=== PATIENT | female | born 1960 | race Caucasian/White ===

== ENCOUNTER → 2017-12-14 18:21 | Outpatient (CLI) | payer OTHER, SELFPAY ==
[2019-06-06 10:24] VITALS: BMI 31.1
== END ==
PROVIDERS: Family Provider Internal Medicine; PCP Internal Medicine; Visit Provider Ophthalmology
DX: H04.332 Acute lacrimal canaliculitis of left lacrimal passage (principal)
CPT/HCPCS: 87070; 87205

== ENCOUNTER → 2017-12-28 13:00 | Outpatient (CLI) | payer OTHER, SELFPAY ==
[2017-12-28 13:32] LABS: CPK Total, Creatine Kinase 74 U/L (26-192)
== END ==
PROVIDERS: Family Provider Internal Medicine; PCP Internal Medicine; Visit Provider Internal Medicine
DX: R07.9 Chest pain, unspecified (principal)
CPT/HCPCS: 82550; 84484

== ENCOUNTER → 2018-01-28 13:27 | Outpatient (CLI) | payer MEDICARE, OTHER, SELFPAY | PROVIDERS: Family Provider Internal Medicine; PCP Internal Medicine; Visit Provider Internal Medicine Critical Care Medicine | DX: G47.33 Obstructive sleep apnea (adult) (pediatric) (principal) | CPT/HCPCS: 98960; G0463 ==

== ENCOUNTER → 2018-02-19 14:51 | Outpatient (CLI) | payer MEDICARE, SELFPAY ==
--- NOTE | 2018-02-19 14:55 | BI_ITS ---
MAMMOGRAPHY - BILATERAL SCREENING REASON FOR EXAM: Female, 57 years old. Routine annual screening examination. PERTINENT HISTORY: Prior bilateral breast reduction surgery. TECHNIQUE: Digital bilateral breast gretchen (3D mammographic acquisition) in the CC and MLO projections. 2-D mediolateral oblique (MLO) and craniocaudad (CC) views of both breasts were obtained. CAD: Full Field Digital Mammography with Computer Added Detection was performed. COMPARISON: Comparison is made with prior study dated August 26, 2013 and March 18, 2012. FINDINGS: Breast Composition: The breasts are almost entirely fatty. There are no dominant masses or suspicious calcifications. Stable linear calcification seen along the inferior deep medial portion of both breasts in keeping with prior bilateral breast reduction surgery. No other significant abnormalities are identified. There has been no significant change since the prior study. BI/SCREENING MAMM (CAD), BILAT IMPRESSION: Stable bilateral screening mammogram. Yearly follow-up mammogram recommended. (A) ASSESSMENT CATEGORY: BIRADS Category 2: Benign. A letter regarding these results will be sent to the patient by the facility within 30 days. Approximately 10% of breast cancers are not detected by mammography. A normal mammogram should not delay biopsy of a clinically suspicious abnormality. [id number] Electronically Signed: Moreno Camarilol MD at 9:46 EDT Tel [phone], Service support ,
--- NOTE | 2018-02-19 14:59 | BD_ITS ---
STUDY: DUAL ENERGY X-RAY ABSORPTIOMETRY / DXA REASON FOR EXAM: Female, 57 years old. The patient is postmenopausal. Loss of height of 3.5 inches. TECHNIQUE: Bone Mineral Density (BMD) measurements of lumbar spine and left hip were obtained. COMPARISON: Comparison is made with prior study dated September 07, 2009. FINDINGS: Lumbar Spine (L1-L4): g/cm2 (1.421) / T-score (1.8) / Z-score (3.0) Findings are suggestive of normal bone density with a low fracture risk. Left Femur Total: g/cm2 (0.638) / T-score (-2.9) / Z-score (-2.0) Left Femoral Neck: g/cm2 (0.778) / T-score (-1.9) / Z-score (-0.7) The T-Scores on the most recent prior examination were: Lumbar Spine (L1-L4): There has been worsening of bone density since the previous examination. Left Femur Total: which represents a worsening of 0.3%. BD/Dexa Bone Density Study IMPRESSION: The patient is considered osteoporotic as outlined below according to World Jose Organization (WHO) criteria with a high fracture risk. There has been worsening of bone density since the previous examination. Reference Information: The T-score is the number of standard deviations above or below the standard which is normal for young adults at their peak bone mineral density. The World Health Organization (WHO) interprets the T-scores as follows: Above -1 Normal bone density Between -1 and -2.5 Osteopenia Equal to / or below -2.5 Osteoporosis As a practical clinical guideline, osteopenia may be graded as follows: Mild -1 through -1.5 Moderate -1.6 through -2.0 Severe -2.1 through -2.4 The Z-score is the number of standard deviations above or below age-matched controls. A Z-score of less than -1.5 would be considered abnormal. References: 1. NIH Osteoporosis and Related Bone Diseases http://www.osteo.org 2. International Society for Clinical Densitometry http://www.iscd.org 3. National Osteoporosis Foundation http://www.nof.org Electronically Signed: Moreno Camarillo MD at 15:37 EDT Tel [phone], Service support ,
== END ==
PROVIDERS: Family Provider Internal Medicine; PCP Internal Medicine; Visit Provider Internal Medicine
DX: Z12.31 Encounter for screening mammogram for malignant neoplasm of breast (principal); Z78.0 Asymptomatic menopausal state
CPT/HCPCS: 77063; 77067; 77080

== ENCOUNTER 2018-03-04 11:28 | Day surgery (SDC) | payer MEDICARE, SELFPAY ==
[2018-03-04] VITALS (7 sets, daily range): BP systolic 113–117; BP diastolic 76–87; PULSE 74–82; RESP 16–18; TEMP 36.2–36.8; O2SAT 96–99; BMI 33.0
[2018-03-04] MEDS: Cefazolin 2 GM in 0.9% Normal Saline 100 ML IV (12:55)
[2018-03-04] MEDS: Bupivacaine Mpf 0.5% 30 ML VIAL (13:00)
--- NOTE | 2018-03-04 13:00 | AMP_PTH ---
PATIENT: ALBERTINA WORKMAN [place] [facility] [place][id number] AGE/SX: 57/F ROOM: RE03/04/[address]: Dr. Zachery Mohan DPM : 1960 BED: DIS: 03/04/2018 SPEC #: [id number] RECD: 03/05/18 08:10 STATUS: PRAMOD HERNANDEZ #: [id number] MOR: 03/04/18 13:[address]: Zachery Mohan DEPT: SURGICAL PATHOLOGY RECD BY: Dhruv Hunter ENTERED: 03/05/18 09:30 SP TYPE: Amputation OTHR DR: Dr. Kelli Senior, DO Tissues: Toe, NOS Procedures: Decalcification bone/plaque Surgery Specimen Level IV HEADER OPERATION: Amputation toe, partial second PRE-OP DIAGNOSIS: Hammertoe right foot TISSUE SUBMITTED: Right second toe MICROSCOPIC DIAGNOSIS Right second toe, amputation: Bone with reparative and reactive change consistent with hammertoe deformity. AM:vern 03/08/18 MICROSCOPIC DESCRIPTION Slides are reviewed. GROSS DESCRIPTION Received in fixative is one container labeled with the patient's name and designated right second toe. The specimen consists of a distal digit with attached nail, skin, soft tissue and bone measuring 2 cm in length and with an average diameter of 1.6 cm. The skin, soft tissue and bone at margin of resection is grossly unremarkable. The plantar surface displays an ulcer with surrounding induration measuring 2 mm in greatest dimension. A longitudinal section of this fragment is submitted in cassette 1 after decalcification. Also present free in the container is an irregular fragment of blackmon bone measuring 1 x 1 x 0.7 cm. This fragment of bone is bisected and submitted in its entirety in cassette 2 after decalcification. / AM:vern 03/05/18 TC:5 CPT: 94268, 75988
--- NOTE | 2018-03-04 13:35 | OP.PCM_ITS ---
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 She had previous surgery to try to straighten the toe many years ago by a different physician, however the toe is deformed and very painful. She develops a painful callus to the toe. She has trouble with shoegear. She continues to have symptoms despite extensive nonsurgical management, she was asking to have a partial 2nd toe amputation. This was discussed with her, reviewed the procedure, as well as the possible benefits, risks, goals and expectations. She expressed understanding and agreement, and she elected to proceed forward with partial amputation of the right 2nd toe. The consent forms were reviewed with her and she freely signed them. All of her questions were answered. No guarantees were given or implied. Operative procedure: The patient was brought back into the operating room and was placed on the operative room table in the supine position. She was carefully secured to the operating room table in the supine position. The patient received 2g of IV Ancef for antibiotic prophylaxis. The patient received MAC anesthesia per the anesthesia team. A right 2nd ray block was completed to the right foot after the overlying skin was cleansed with 70% Isopropyl alcohol. A well padded pneumatic tourniquet was applied around the right ankle. The right foot was scrubbed, prepped, draped in the usual aseptic fashion. A timeout was performed and the patient was properly identified and the surgical plan was confirmed. A right foot was elevated for 3 minutes and the right ankle pneumatic tourniquet was inflated to 250mmHg. Further attention was directed to the right 2nd toe, which was again noted to be significantly deformed. An incision was made around the base of the 2nd toe using a 15 blade, this was made down to bone creating skin flaps for closure. The 2nd toe was resected, leaving the base of the proximal phalanx. The bone and soft tissues were otherwise healthy and viable, no evidence of infection, necrosis, or any other abnormality at this time. The amputated portion of the toe was sent to pathology for further evaluation. The site was flushed out with copious amounts of normal saline solution. The skin flaps were reapproximated using 3-0 Prolene. A dressing was applied which consisted of betadine soaked adaptic, 4x4 gauze, kerlix and an eli bandage. The pneumatic tourniquet was deflated at 18 minutes, there was immediate return of flow to the foot and to all remaining toes, CFT < 2 seconds to all toes, and normal temperature was present. The patient tolerated the above procedure and anesthesia well with no complications. Post operative orders were placed. Post operative instructions were dispensed verbally and written. No weightbearing to the right forefoot, keep right foot elevated, and keep the dressing clean, dry and intact. Vicodin 5mg/300mg 1-2 tabs PO q 6 hours PRN pain was prescribed. A surgical shoe was fitted and dispensed. She is to follow up with me within 1 week, sooner if needed. Grafts/Implants Used: None - Complications None
--- NOTE | 2018-03-04 13:49 | PCM.DC.POD ---
Discharge Diet: Light diet - advance as tolerated Discharge Activity: May Not Drive Weight Bearing Status: Partial weight bearing - No weightbearing on toes/ball of right foot. Okay to weightbear on right heel with assistance with a walker or cane Keep extremity elevated above heart level: Right Leg - Keep right foot elevated for at least 50 minutes of every hour using pillows Call your doctor if your incision/area has: Continuous Slow Oozing, Sudden Increased Bleeding, Foul Smelling Discharge Call your doctor if you observe: Fever of 101 or Higher, Coldness, Increased Pain, Shortness of breath, Chest pain, Increased palpitations (irregular heartbeat), Calf discomfort, Uncontrolled pain Cleanse incision/area with: Do not get Incision Wet, Keep Dressing Clean & Dry Allergies/Adverse Reactions: Allergies adhesive tape Allergy (Severe, Uncoded 02/25/18 12:59) Unknown seasonal Allergy (Severe, Uncoded 02/25/18 12:59) Unknown Medications to take at Discharge biotin 5,000 mcg disintegrating tablet 10,000 mcg PO QDAY 12/19/17 calcitriol 0.25 mcg capsule 0.25 mcg PO QDAY 12/19/17 calcium carbonate 500 mg calcium (1,250 mg) tablet 500 mg PO BID tab 12/19/17 ergocalciferol (vitamin D2) 50,000 unit capsule 50,000 unit PO QWEEK 12/19/17 fludrocortisone 0.1 mg tablet 0.05 mg PO QODAY tab 12/19/17 fluoxetine 20 mg capsule 20 mg PO QDAY 12/19/17 levothyroxine 88 mcg tablet 88 mcg PO DAILY 12/19/17 mecobalamin (vitamin B12) 1,000 mcg disintegrating tablet,sublingual 1,000 mcg SUBLINGUAL QWEEK tab 12/19/17 omeprazole 20 mg capsule,delayed release 20 mg PO ONCE 12/19/17 pediatric multivitamin no.76 chewable tablet 1 tab PO QDAY 12/19/17 polysaccharide iron complex 150 mg iron capsule 325 mg PO DAILY cap 12/19/17 prednisone 2 mg tablet,delayed release 4 mg PO QHS 12/19/17 triamterene 37.5 mg-hydrochlorothiazide 25 mg capsule 1 cap PO QAM 12/19/17 Potassium Chloride [Klor-Con] 40 meq PO DAILY 02/25/18 Raloxifene HCl [Evista] 60 mg PO DAILY 02/25/18 Hydrocodone/Acetaminophen [Vicodin 5-300 mg Tablet] 1 - 2 tab PO Q6H PRN PRN 3 Days #30 tab 03/04/18 The following prescriptions were given: Hydrocodone/Acetaminophen [Vicodin 5-300 mg Tablet] 1 - 2 tab PO Q6H PRN PRN 3 Days #30 tab PRN Reason: Pain Primary Care Physician: Kelli Senior DO [Primary Care Provider] - Please Follow Up With: Zachery Mohan DPM When: within 1 week, sooner if needed
--- NOTE | 2018-03-04 14:05 | RAD_ITS ---
STUDY: X-RAY - RIGHT FOOT CLINICAL: Female, 57 years old. Postoperative right foot second digit partial amputation. TECHNIQUE: 3 view(s) of the foot. COMPARISON: None. FINDINGS: Has been surgical amputation of the mid and distal aspects of the second toe. There is mild multifocal osteoarthritis. There is diffuse demineralization. The soft tissue structures are unremarkable. RAD/Foot min 3 Views IMPRESSION: No evidence of acute osseous abnormality. Diffuse demineralization, advise correlation with DEXA. Mild multifocal osteoarthritis. Surgical amputation of mid and distal aspects of the second toe. No evidence on plain film exam of osteomyelitis. Electronically Signed: Ivan Ryder MD at 15:13 EDT , Service support ,
== END 2018-03-04 14:46 | disposition home or self-care (01) ==
LOC: SDC 11:32 → AC 11:42
PROVIDERS: Family Provider Internal Medicine; PCP Internal Medicine; Visit Provider Podiatrist
PROC: (CPT 28810; principal; 2018-03-04 12:45)
DX: M20.41 Other hammer toe(s) (acquired), right foot (principal); M20.5X1 Other deformities of toe(s) (acquired), right foot; I10 Essential (primary) hypertension; E78.00 Pure hypercholesterolemia, unspecified; G47.30 Sleep apnea, unspecified; E66.9 Obesity, unspecified; E03.9 Hypothyroidism, unspecified; Z68.33 Body mass index [BMI] 33.0-33.9, adult
CPT/HCPCS: 28810; 73630; 88305; 88311; J7120

== ENCOUNTER → 2019-02-20 10:46 | Outpatient (CLI) | payer MEDICARE, SELFPAY ==
[2018-12-25 08:49] VITALS: BMI 32.7
--- NOTE | 2019-02-20 10:47 | BI_ITS ---
MAMMOGRAPHY - BILATERAL SCREENING REASON FOR EXAM: Female, 58 years old. Routine annual screening examination. PERTINENT HISTORY: Non-contributory. Remote right stereotactic breast biopsy. Remote bilateral breast reduction surgery. TECHNIQUE: Digital bilateral breast gretchen (3D mammographic acquisition) in the CC and MLO projections. 2-D mediolateral oblique (MLO) and craniocaudad (CC) views of both breasts were obtained. CAD: Full Field Digital Mammography with Computer Added Detection was performed. COMPARISON: Comparison is made with prior study dated February 19, 2018 and August 26, 2013. FINDINGS: Breast Composition: The breasts are almost entirely fatty. There are no dominant masses or suspicious calcifications. Stable focal linear calcification seen along the inferior deep medial portions of both breasts suggestive of a post operative changes. No other significant abnormalities are identified. There has been no significant change since the prior study. BI/SCREENING MAMM (CAD), BILAT IMPRESSION: Stable bilateral screening mammogram. Yearly follow-up mammogram recommended. (A) ASSESSMENT CATEGORY: BIRADS Category 2: Benign. A letter regarding these results will be sent to the patient by the facility within 30 days. Approximately 10% of breast cancers are not detected by mammography. A normal mammogram should not delay biopsy of a clinically suspicious abnormality. [id number] Electronically Signed: Moreno Camarillo, at 12:29 EDT , Service support ,
== END ==
PROVIDERS: Family Provider Internal Medicine; PCP Internal Medicine; Referring Provider Internal Medicine; Visit Provider Internal Medicine
DX: Z12.31 Encounter for screening mammogram for malignant neoplasm of breast (principal)
CPT/HCPCS: 77063; 77067

== ENCOUNTER → 2019-02-27 07:36 | Outpatient (CLI) | payer MEDICARE, SELFPAY ==
[2018-12-25 08:49] VITALS: BMI 32.7
[2019-02-27 10:14] LABS: Absolute Lymphocyte Count 1.76 X10^3/ul (0.83-4.51); Absolute Neutrophil Count 2.5 X10^3/uL (2.0-7.7); Basophil# 0.03 X10^3/uL; Basophil% 0.6 % (0-1); Eosinophil# 0.14 X10^3/uL; Hematocrit 42.8 % (37-47); Hemoglobin 15.1 g/dl (12.0-15.0); Lymphocyte # 1.76 X10^3/ul (4.0); Lymphocyte % 37.3 % (19-41); Mean Corp Hgb Conc 35.3 g/gl (32-36); Mean Corpuscular Volume 93.4 fL (81-99); Mean Platelet Vol. 9.6 fl (6.2-12.0); Monocyte# 0.32 X10^3/uL; Monocyte% 6.8 % (0-10); Neutrophil # 2.47 X10^3/uL (2.7-7.7); Neutrophil % 52.3 % (47-70); Platelet Count 180 K/mm3 (150-450); RBC Distribution Width CV 12.4 % (11.6-14.6); RBC Distribution Width SD 41.9 fl (35.1-43.9); Red Blood Count 4.58 M/mm3 (4.2-5.4); White Blood Count 4.7 K/mm3 (4.4-11.0)
[2019-02-27 10:19] LABS: POSITIVE COUNT NO; POSITIVE DIFFERENTIAL NO; POSITIVE MORPHOLOGY NO
[2019-02-27 10:35] LABS: PTHIN 36.9 pg/mL (18.4-80.1)
[2019-02-27 10:54] LABS: Vitamin B12 1001 pg/mL (211-911); Vitamin D,25 Hydroxy 40.3 ng/mL (29.95-100.01)
[2019-02-27 11:16] LABS: ALB/GLOB Ratio 1.2 RATIO (0.9-2.4); AST(SGOT) 26 U/L (15-37); Alanine Aminotransfer ALT/SGPT 35 U/L (13-56); Albumin, Serum 3.5 g/dL (3.2-5.0); Alkaline Phosphatase 72 U/L (45-117); Anion Gap 6 (5-15); BUN 11 mg/dL (7-18); BUN/Creat Ratio 18.8 RATIO (10-20); Calcium,Total 8.8 mg/dL (8.5-10.1); Chloride 106 mmol/L (98-107); Creatinine, Serum 0.59 mg/dL (0.55-1.02); EST Glomerular Filtration Rate 111 mL/min (>60); Est Glom Filt Rate - Afr Amer 135 mL/min (>60); Globulin 2.9 g/dL (2.2-4.2); Glucose 88 mg/dL (74-106); Magnesium 2.1 mg/dL (1.6-2.6); Phosphorus 3.7 mg/dL (2.5-4.9); Potassium 3.7 mmol/L (3.5-5.1); Prolactin 8.7 ng/mL; Protein, Total 6.4 g/dL (6.4-8.2); Sodium Level 142 mmol/L (136-145)
[2019-02-27 11:21] LABS: Hemoglobin A1c 5.1 % (4.2-6.3)
[2019-02-28 16:07] LABS: Folate, Hemolysate Test 498.7 ng/mL (Not Estab.); Folate, RBC (Hct) Test 42.4 % (34.0-46.6); Folates, RBC Test 1176 ng/mL (>498)
[2019-03-03 12:03] LABS: Thyroid Peroxidase AB 7 IU/mL (0-34)
== END ==
PROVIDERS: Family Provider Internal Medicine; PCP Internal Medicine; Referring Provider Internal Medicine Endocrinology, Diabetes & Metabolism; Visit Provider Internal Medicine Endocrinology, Diabetes & Metabolism
DX: E55.9 Vitamin D deficiency, unspecified (principal); Z13.1 Encounter for screening for diabetes mellitus; D35.2 Benign neoplasm of pituitary gland; E03.9 Hypothyroidism, unspecified; M81.8 Other osteoporosis without current pathological fracture; Z98.84 Bariatric surgery status; Z86.39 Personal history of other endocrine, nutritional and metabolic disease
CPT/HCPCS: 36415; 80053; 82306; 82330; 82607; 82747; 83036; 83735; 83970; 84100; 84146; 85014; 85025; 86376

== ENCOUNTER → 2019-02-28 11:32 | Outpatient (CLI) | payer MEDICARE, SELFPAY ==
[2018-12-25 08:49] VITALS: BMI 32.7
== END ==
PROVIDERS: Family Provider Internal Medicine; PCP Internal Medicine; Referring Provider Internal Medicine Endocrinology, Diabetes & Metabolism; Visit Provider Internal Medicine Endocrinology, Diabetes & Metabolism
DX: E55.9 Vitamin D deficiency, unspecified (principal); Z13.1 Encounter for screening for diabetes mellitus; Z86.39 Personal history of other endocrine, nutritional and metabolic disease; D35.2 Benign neoplasm of pituitary gland; M81.8 Other osteoporosis without current pathological fracture; Z98.84 Bariatric surgery status

== ENCOUNTER → 2019-03-12 14:02 | Outpatient (CLI) | payer MEDICARE, SELFPAY ==
[2018-12-25 08:49] VITALS: BMI 32.7
--- NOTE | 2019-03-12 14:07 | RAD_ITS ---
STUDY: X-RAY CHEST REASON FOR EXAM: Female, 58 years old. Chest pain TECHNIQUE: Frontal and lateral views of the chest COMPARISON: None. FINDINGS: The lungs are clear. There are no pleural effusions. There is no pneumothorax. The heart is normal in size. There are surgical clips noted in the upper abdomen. The visualized osseous structures are within normal limits. RAD/Chest PA and Lateral IMPRESSION: No acute thoracic pathology. Electronically Signed: Jeremiah Hoffman, at 14:56 EDT Tel , Service support ,
--- NOTE | 2019-03-12 14:09 | RAD_ITS ---
STUDY: X-RAY - UNILATERAL RIBS ( RIGHT ) REASON FOR EXAM: Female, 58 years old. Right-sided pain. Fall. TECHNIQUE: 2 view(s) of the ribs. COMPARISON: None. FINDINGS: There are no displaced rib fractures identified. The visualized lungs are clear. There is no pneumothorax. RAD/Ribs Unil 2V No CXR IMPRESSION: No displaced rib fracture identified. Electronically Signed: Jeremiah Hoffman, at 14:58 EDT Tel , Service support ,
== END ==
PROVIDERS: Family Provider Internal Medicine; PCP Internal Medicine; Referring Provider Nurse Practitioner; Visit Provider Nurse Practitioner
DX: R07.81 Pleurodynia (principal); W19.XXXA Unspecified fall, initial encounter
CPT/HCPCS: 71046; 71100

== ENCOUNTER → 2019-06-03 17:26 | Outpatient (CLI) | payer MEDICARE, SELFPAY ==
[2018-12-25 08:49] VITALS: BMI 32.7
== END ==
PROVIDERS: Family Provider Internal Medicine; PCP Internal Medicine; Visit Provider Ophthalmology
DX: H04.332 Acute lacrimal canaliculitis of left lacrimal passage (principal)

== ENCOUNTER → 2019-06-06 10:20 | Outpatient (CLI) | payer MEDICARE, SELFPAY ==
[2018-12-25 08:49] VITALS: BMI 32.7
[2019-06-06 10:24] VITALS: BP 109/71; PULSE 76; RESP 18; TEMP 36.4; O2SAT 98; BMI 31.1
[2019-06-06] MEDS: Zoledronic Acid 5 MG 100 ML 300 MG IV (10:47)
[2019-06-06 11:45] LABS: ALB/GLOB Ratio 1.1 RATIO (0.9-2.4); AST(SGOT) 37 U/L (15-37); Alanine Aminotransfer ALT/SGPT 46 U/L (13-56); Albumin, Serum 3.5 g/dL (3.2-5.0); Alkaline Phosphatase 88 U/L (45-117); Anion Gap 7 (5-15); BUN 13 mg/dL (7-18); BUN/Creat Ratio 21.4 RATIO (10-20); Chloride 103 mmol/L (98-107); Creatinine, Serum 0.61 mg/dL (0.55-1.02); EST Glomerular Filtration Rate 107 mL/min (>60); Est Glom Filt Rate - Afr Amer 129 mL/min (>60); Estimated Creatinine Clearance 81.13 ml/min; Globulin 3.1 g/dL (2.2-4.2); Glucose 89 mg/dL (74-106); Potassium 3.7 mmol/L (3.5-5.1); Protein, Total 6.6 g/dL (6.4-8.2); Sodium Level 141 mmol/L (136-145)
== END ==
PROVIDERS: Family Provider Internal Medicine; PCP Internal Medicine; Referring Provider Internal Medicine Endocrinology, Diabetes & Metabolism; Visit Provider Internal Medicine Endocrinology, Diabetes & Metabolism
DX: M81.0 Age-related osteoporosis without current pathological fracture (principal)
CPT/HCPCS: 96365; 36415; 80053; 87070; 87101; 87205; A4216; J3489

== ENCOUNTER → 2019-06-06 17:20 | Outpatient (CLI) | payer MEDICARE, SELFPAY ==
[2019-06-06 10:24] VITALS: BMI 31.1
== END ==
PROVIDERS: Family Provider Internal Medicine; PCP Internal Medicine; Referring Provider Ophthalmology; Visit Provider Ophthalmology
DX: H04.332 Acute lacrimal canaliculitis of left lacrimal passage (principal)
CPT/HCPCS: 87070; 87101; 87205

== ENCOUNTER → 2020-01-19 12:46 | Outpatient (CLI) | payer MEDICARE, SELFPAY ==
[2019-06-06 10:24] VITALS: BMI 31.1
== END ==
PROVIDERS: PCP Internal Medicine; Referring Provider Ophthalmology; Visit Provider Ophthalmology
DX: H04.332 Acute lacrimal canaliculitis of left lacrimal passage (principal)
CPT/HCPCS: 87070; 87075; 87076; 87205

== ENCOUNTER → 2020-02-03 15:00 | Outpatient (CLI) | payer MEDICARE, SELFPAY ==
[2019-06-06 10:24] VITALS: BMI 31.1
--- NOTE | 2020-02-03 15:08 | RAD_ITS ---
STUDY: X-RAY - LEFT SHOULDER REASON FOR EXAM: Female, 59 years old. FELL THIS AM, SHOULDER PAIN TECHNIQUE: 4 view(s) of the shoulder. COMPARISON: None. FINDINGS: There is mild degenerative arthrosis of the glenohumeral articulation. Normal acromioclavicular joint. Normal acromion. Normal humeral head and visualized proximal humerus. The soft tissue structures are unremarkable. Normal visualized pulmonary apex. RAD/Shoulder min 2 Views IMPRESSION: Degenerative changes of the right glenohumeral joint. Electronically Signed: Moreno Camarillo, at 15:40 EDT , Service support ,
== END ==
PROVIDERS: PCP Internal Medicine; Referring Provider Nurse Practitioner; Visit Provider Nurse Practitioner
DX: M25.512 Pain in left shoulder (principal)
CPT/HCPCS: 73030

== ENCOUNTER → 2020-02-25 10:44 | Outpatient (CLI) | payer MEDICARE, SELFPAY ==
[2019-06-06 10:24] VITALS: BMI 31.1
[2020-02-19 13:03] VITALS: BMI 31.1
--- NOTE | 2020-02-25 10:51 | BD_ITS ---
STUDY: DUAL ENERGY X-RAY ABSORPTIOMETRY / DXA REASON FOR EXAM: Female, 59 years old. 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 COMPARISON: Comparison is made with prior examination dated February 19, 2018. FINDINGS: Lumbar Spine (L1-L4): g/cm2 (1.394) / T-score (1.6) / Z-score (2.9) Findings are suggestive of normal bone density with a low fracture risk. Left Femur Total: g/cm2 (0.649) / T-score (-2.8) / Z-score (-1.8) Left Femoral Neck: g/cm2 (0.885) / T-score (minus 1.) / Z-score (0.2) The T-Scores on the most recent prior examination were: Lumbar Spine (L1-L4): There has been worsening of bone density since the previous examination. Left Femur Total: which represents an improvement of 13.8. BD/Dexa Bone Density Study IMPRESSION: The patient is considered osteoporotic as outlined below according to World [place] Organization (WHO) criteria with a high fracture risk. There has been improvement of bone density since the previous examination. Reference Information: The T-score is the number of standard deviations above or below the standard which is normal for young adults at their peak bone mineral density. The World Health Organization (WHO) interprets the T-scores as follows: Above -1 Normal bone density Between -1 and -2.5 Osteopenia Equal to / or below -2.5 Osteoporosis As a practical clinical guideline, osteopenia may be graded as follows: Mild -1 through -1.5 Moderate -1.6 through -2.0 Severe -2.1 through -2.4 The Z-score is the number of standard deviations above or below age-matched controls. A Z-score of less than -1.5 would be considered abnormal. References: 1. NIH Osteoporosis and Related Bone Diseases http://www.osteo.org 2. International Society for Clinical Densitometry http://www.iscd.org 3. National Osteoporosis Foundation http://www.nof.org Electronically Signed: Moreno Camarillo, at 11:33 EDT , Service support ,
--- NOTE | 2020-02-25 10:57 | BI_ITS ---
MAMMOGRAPHY - BILATERAL SCREENING REASON FOR EXAM: Female, 59 years old. Routine annual screening examination. PERTINENT HISTORY: Non-contributory. Remote right stereotactic breast biopsy and bilateral breast reduction surgery. TECHNIQUE: Digital bilateral breast eli (3D mammographic acquisition) in the CC and MLO projections. 2-D mediolateral oblique (MLO) and craniocaudad (CC) views of both breasts were obtained. CAD: Full Field Digital Mammography with Computer Added Detection was performed. COMPARISON: Comparison is made with prior examination dated February 20, 2019 and February 19, 2018. FINDINGS: Breast Composition: The breasts are almost entirely fatty. There are no dominant masses or suspicious calcifications. Stable bilateral focal linear calcification in the inferior deep portion of both breasts most likely secondary to prior surgery. No other significant abnormalities are identified. There has been no significant change since the prior study. BI/SCREEN MAMM (CAD) W/ELI BILAT IMPRESSION: Stable bilateral screening mammogram. Yearly follow-up mammogram recommended. (A) ASSESSMENT CATEGORY: BIRADS Category 2: Benign. A letter regarding these results will be sent to the patient by the facility within 30 days. Approximately 10% of breast cancers are not detected by mammography. A normal mammogram should not delay biopsy of a clinically suspicious abnormality. [id number] Electronically Signed: Moreno Camarillo, at 14:31 EDT , Service support ,
== END ==
PROVIDERS: PCP Internal Medicine; Referring Provider Internal Medicine; Visit Provider Internal Medicine
DX: Z12.31 Encounter for screening mammogram for malignant neoplasm of breast (principal); Z78.0 Asymptomatic menopausal state
CPT/HCPCS: 77063; 77067; 77080

== ENCOUNTER → 2020-04-13 07:17 | Outpatient (CLI) | payer MEDICARE, SELFPAY ==
[2020-03-05 09:18] VITALS: BMI 31.1
[2020-04-13 10:39] LABS: ALB/GLOB Ratio 1.1 RATIO (0.9-2.4); AST(SGOT) 52 U/L (15-37); Alanine Aminotransfer ALT/SGPT 70 U/L (13-56); Albumin, Serum 3.5 g/dL (3.2-5.0); Alkaline Phosphatase 73 U/L (45-117); Anion Gap 9 (5-15); BUN 12 mg/dL (7-18); BUN/Creat Ratio 20.5 RATIO (10-20); Calcium,Total 8.6 mg/dL (8.5-10.1); Chloride 104 mmol/L (98-107); Creatinine, Serum 0.58 mg/dL (0.55-1.02); EST Glomerular Filtration Rate 111 mL/min (>60); Est Glom Filt Rate - Afr Amer 134 mL/min (>60); Ferritin 73 ng/mL (8-252); Globulin 3.2 g/dL (2.2-4.2); Glucose 90 mg/dL (74-106); Iron 136 ug/dL (50-170); Iron Binding Capacity,Total 314 ug/dL (250-450); PERCENT IRON SATURATION 43.3 % (15.0-55.0); Potassium 3.7 mmol/L (3.5-5.1); Protein, Total 6.7 g/dL (6.4-8.2); Sodium Level 141 mmol/L (136-145); T4 Free Direct 1.21 ng/dL (0.76-1.46)
== END ==
PROVIDERS: PCP Internal Medicine; Referring Provider Internal Medicine Endocrinology, Diabetes & Metabolism; Visit Provider Internal Medicine Endocrinology, Diabetes & Metabolism
DX: E83.19 Other disorders of iron metabolism (principal); E03.9 Hypothyroidism, unspecified
CPT/HCPCS: 36415; 80053; 82728; 83540; 83550; 84439; 84443

== ENCOUNTER → 2020-04-19 11:00 | Outpatient (CLI) | payer MEDICARE, SELFPAY ==
[2020-02-19 13:03] VITALS: BMI 31.1
== END ==
PROVIDERS: PCP Internal Medicine; Referring Provider Internal Medicine Critical Care Medicine; Visit Provider Internal Medicine Critical Care Medicine
DX: G47.33 Obstructive sleep apnea (adult) (pediatric) (principal)
CPT/HCPCS: 98960; G0463

== ENCOUNTER → 2020-05-26 17:42 | Outpatient (CLI) | payer MEDICARE, SELFPAY ==
[2020-03-05 09:18] VITALS: BMI 31.1
--- NOTE | 2020-05-26 17:43 | MRI_ITS ---
STUDY: MRI LEFT SHOULDER REASON FOR EXAM: Left shoulder and upper arm pain, limited range of motion, symptoms for 6 months. TECHNIQUE: Standardized fat and water weighted pulse sequences were obtained in all 3 orthogonal planes. COMPARISON: Radiographs 02/03/2020. FINDINGS: There is a full-thickness tear of the supraspinatus tendon retracted approximately 3.2 cm to the level of the acromioclavicular joint (T2 coronal images 8-13). There is infraspinatus tendinosis (T2 coronal images 4-6) without discrete tendon tear. There is attenuation of the subscapularis tendon (proton-density axial images 11-13). Normal teres minor tendon. There is atrophy with partial fat replacement of the supraspinatus muscle (T2 axial images 2, 3). There is mild atrophy with mild partial fat replacement of the infraspinatus muscle (T2 sagittal image 7). Normal subscapularis muscle. Normal teres minor muscle. There is a glenohumeral joint effusion. There is mild superior migration of the humeral head secondary to the retracted rotator cuff tear. There is a bone island in the glenoid. There is cystic change/mild bone edema in the greater tuberosity. There is a tear with nonvisualization of the intracapsular long biceps tendon. Normal labrum. Normal capsulo- ligamentous complex. There is acromioclavicular arthrosis with an undersurface osteophyte of the distal clavicle (T2 sagittal image 8). There is a Type II morphology (curved), with a neutral orientation. There is subacromial-subdeltoid and subcoracoid bursal fluid. There is thickening of the coracoacromial ligament (T2 sagittal image 14). There is a cyst in the lateral deltoid muscle (T2 coronal image 2) measuring 2.3 cm in length. Normal trapezius muscle. MRI/Upper Ext Joint Only(Routine) IMPRESSION: Full-thickness tear of the supraspinatus tendon. Attenuation of the subscapularis tendon. Infraspinatus tendinosis. Atrophy of the supraspinatus muscle and mild atrophy of the infraspinatus muscle. Tear of the long biceps tendon. Acromioclavicular arthrosis. Thickening of the coracoacromial ligament. Glenohumeral joint fluid communicating with the subacromial-subdeltoid and subcoracoid bursae. Cyst in the lateral deltoid muscle. Electronically Signed: Benny Maria MD at 8:01 EDT Tel , Service support ,
== END ==
PROVIDERS: PCP Internal Medicine; Referring Provider Orthopaedic Surgery; Visit Provider Orthopaedic Surgery
DX: M75.42 Impingement syndrome of left shoulder (principal); M75.102 Unspecified rotator cuff tear or rupture of left shoulder, not specified as traumatic
CPT/HCPCS: 73221

== ENCOUNTER → 2020-05-27 09:20 | Outpatient (CLI) | payer MEDICARE, SELFPAY ==
[2020-03-05 09:18] VITALS: BMI 31.1
[2020-05-27 09:36] VITALS: BP 129/69; PULSE 80; RESP 16; TEMP 36.4; O2SAT 96; BMI 32.1
[2020-05-27] MEDS: 0.9% NaCl Peripheral Flush Adult/Peds IV (09:44)
[2020-05-27] MEDS: Zoledronic Acid 5 MG 100 ML 300 MG IV (09:44)
[2020-05-27 10:13] VITALS: BP 120/65; PULSE 74; RESP 16
== END ==
LOC: MEDOUTP 09:24
PROVIDERS: PCP Internal Medicine; Referring Provider Internal Medicine Endocrinology, Diabetes & Metabolism; Visit Provider Internal Medicine Endocrinology, Diabetes & Metabolism
DX: M81.0 Age-related osteoporosis without current pathological fracture (principal)
CPT/HCPCS: 96365; A4216; J3489

== ENCOUNTER → 2020-07-06 17:45 | Outpatient (CLI) | payer MEDICARE, SELFPAY ==
[2020-06-17 14:35] VITALS: BMI 32.1
[2020-07-06 19:44] LABS: M R Staph aureus DNA By PCR Negative (Negative); Probe Check PASS; Staph aureus DNA By PCR NEGATIVE (Negative)
== END ==
PROVIDERS: PCP Internal Medicine; Referring Provider Podiatrist; Visit Provider Podiatrist
DX: L03.115 Cellulitis of right lower limb (principal)
CPT/HCPCS: 87070; 87075; 87077; 87186; 87205; 87640

== ENCOUNTER → 2020-08-16 09:38 | Outpatient (CLI) | payer MEDICARE, SELFPAY ==
[2020-06-17 14:35] VITALS: BMI 32.1
--- NOTE | 2020-08-16 09:39 | US_ITS ---
STUDY: THYROID ULTRASOUND REASON FOR EXAM: Female, 60 years old. NODULES TECHNIQUE: Ultrasound evaluation of the thyroid was performed with real-time and static kwon-scale imaging. COMPARISON: None. FINDINGS: RIGHT LOBE: The right lobe of the thyroid gland measures 4.3 x 1.6 x 1.9 cm. There is a heterogeneous echotexture. There is a heterogeneous complex upper thyroid 1.3 x 1.4 x 1 cm nodule and a lower predominantly solid 1.7 x 1.2 x 1 cm nodule. LEFT LOBE: The left lobe of the thyroid gland measures 3.7 x 1.4 x 1.3 cm. There is a heterogeneous echotexture. Multiple, at least 4, complex predominantly hypoechoic nodules are noted the largest measuring up to 8 mm. ISTHMUS: The isthmus measures 2 . The regional lymph nodes are normal. US/Thyroid IMPRESSION: Bilateral complex nodules are noted of the thyroid. Electronically Signed: Ari Mora DO at 11:51 EDT Tel [phone], Service support ,
== END ==
LOC: US 09:38
PROVIDERS: PCP Internal Medicine; Referring Provider Internal Medicine Endocrinology, Diabetes & Metabolism; Visit Provider Internal Medicine Endocrinology, Diabetes & Metabolism
DX: E04.1 Nontoxic single thyroid nodule (principal); R79.89 Other specified abnormal findings of blood chemistry; E03.9 Hypothyroidism, unspecified; Z86.39 Personal history of other endocrine, nutritional and metabolic disease; Z79.52 Long term (current) use of systemic steroids
CPT/HCPCS: 76536

== ENCOUNTER → 2020-10-14 07:28 | Outpatient (CLI) | payer MEDICARE, SELFPAY ==
[2020-06-17 14:35] VITALS: BMI 32.1
[2020-10-14 07:38] LABS: Bacteria 0 SEEN /hpf (None Seen); Mucous, Urine 0 SEEN /hpf (<or=2+); Red Blood Cells-Urine 0 SEEN /hpf (0-5); Squamous Epithelial Cells - UA 0 SEEN /hpf (5-10); White Blood Cells 0 SEEN /hpf (0-5)
[2020-10-14 10:13] LABS: Absolute Lymphocyte Count 1.58 X10^3/uL (0.83-4.51); Absolute Neutrophil Count 3.1 X10^3/uL (2.0-7.7); Basophil# 0.03 X10^3/uL; Basophil% 0.6 % (0-1); Eosinophils% 1.9 % (0-5); Hematocrit 44.2 % (37-47); Hemoglobin 15.3 g/dL (12.0-15.0); Lymphocyte # 1.58 X10^3/ul (4.0); Lymphocyte % 30.8 % (19-41); Mean Corp Hgb Conc 34.6 g/dL (32-36); Mean Corpuscular Hgb 33.5 pg (27.0-32.0); Mean Corpuscular Volume 96.7 fL (81-99); Mean Platelet Vol. 9.8 fl (6.2-12.0); Monocyte# 0.35 X10^3/uL; Monocyte% 6.8 % (0-10); NRBC Flagged by Analyzer 0 % (0-5); Neutrophil # 3.06 X10^3/uL (2.7-7.7); Neutrophil % 59.7 % (47-70); Platelet Count 243 K/mm3 (150-450); RBC Distribution Width CV 12.4 % (11.6-14.6); RBC Distribution Width SD 43.7 fl (35.1-43.9); Red Blood Count 4.57 M/mm3 (4.2-5.4); White Blood Count 5.1 K/mm3 (4.4-11.0)
[2020-10-14 10:28] LABS: Vitamin D,25 Hydroxy 55.9 ng/mL
[2020-10-14 10:31] LABS: Hemoglobin A1c 4.9 % (3.8-5.6)
[2020-10-14 10:40] LABS: ALB/GLOB Ratio 1.2 RATIO (0.9-2.4); AST(SGOT) 37 U/L (15-37); Alanine Aminotransfer ALT/SGPT 61 U/L (13-56); Albumin, Serum 3.5 g/dL (3.2-5.0); Alkaline Phosphatase 56 U/L (45-117); Anion Gap 4 (5-15); BUN 12 mg/dL (7-18); Calcium,Total 8.9 mg/dL (8.5-10.1); Chloride 106 mmol/L (98-107); Cholesterol 152 mg/dL (200); EST Glomerular Filtration Rate 133 mL/min (>60); Est Glom Filt Rate - Afr Amer 161 mL/min (>60); Globulin 2.9 g/dL (2.2-4.2); Glucose 88 mg/dL (74-106); High Density Lipoprotein 74 mg/dL; Potassium 3.7 mmol/L (3.5-5.1); Protein, Total 6.4 g/dL (6.4-8.2); Sodium Level 140 mmol/L (136-145); Thyroid Stim Hormone (TSH) 0.23 uIU/mL (0.358-3.74); Triglycerides 62 mg/dL; Very Low Density Lipoprotein 12 mg/dL (5-40)
[2020-10-14 15:24] LABS: Color, Urine Yellow (Yellow); Glucose, Dipstick Normal (Normal); Ketone-Dipstick Negative (Negative); Leukocyte Esterase-Dipstick Negative /ul (Negative); Nitrite-Dipstick Negative (Negative); Occult Blood-Urine Negative /ul (Negative); Protein-Dipstick Negative (Negative); Urine Bilirubin Dipstick Negative (Negative); Urine Clarity Sl. Cloudy (Clear); Urine Urobilinogen Normal (Normal)
[2020-10-14 15:56] LABS: Creatinine, Urine (random) < 13.00 mg/dL (NO RANGE EST.); Microalbumin,Random Urine < 5.0 mg/L (NO RANGE EST.)
== END ==
LOC: MTLAB 07:30
PROVIDERS: PCP Internal Medicine; Referring Provider Internal Medicine; Visit Provider Internal Medicine
DX: E03.8 Other specified hypothyroidism (principal); E55.9 Vitamin D deficiency, unspecified; E78.00 Pure hypercholesterolemia, unspecified; I10 Essential (primary) hypertension; E03.9 Hypothyroidism, unspecified; R79.89 Other specified abnormal findings of blood chemistry; Z79.52 Long term (current) use of systemic steroids; Z86.39 Personal history of other endocrine, nutritional and metabolic disease
CPT/HCPCS: 36415; 80053; 80061; 81001; 82043; 82306; 82570; 83036; 84439; 84443; 85025

== ENCOUNTER → 2020-11-01 11:32 | Outpatient (CLI) | payer MEDICARE, SELFPAY ==
[2020-06-17 14:35] VITALS: BMI 32.1
== END ==
LOC: MTLAB 11:34
PROVIDERS: PCP Internal Medicine; Referring Provider Internal Medicine Endocrinology, Diabetes & Metabolism; Visit Provider Internal Medicine Endocrinology, Diabetes & Metabolism
DX: E03.9 Hypothyroidism, unspecified (principal); E04.1 Nontoxic single thyroid nodule; R79.89 Other specified abnormal findings of blood chemistry; Z86.39 Personal history of other endocrine, nutritional and metabolic disease; Z79.52 Long term (current) use of systemic steroids
CPT/HCPCS: 36415; 82024

== ENCOUNTER → 2021-02-28 10:47 | Outpatient (CLI) | payer MEDICARE, SELFPAY ==
[2020-06-17 14:35] VITALS: BMI 32.1
--- NOTE | 2021-02-28 10:49 | BI_ITS ---
MAMMOGRAPHY - BILATERAL SCREENING REASON FOR EXAM: Female, 60 years old. Routine annual screening examination. PERTINENT HISTORY: Non-contributory. History of prior bilateral breast reduction surgery and right stereotactic breast biopsy. TECHNIQUE: Digital bilateral breast eli (3D mammographic acquisition) in the CC and MLO projections. 2-D mediolateral oblique (MLO) and craniocaudad (CC) views of both breasts were obtained. CAD: Full Field Digital Mammography with Computer Added Detection was performed. COMPARISON: Comparison is made with prior study dated 02/25/2020 and 02/20/2019. FINDINGS: Breast Composition: The breasts are almost entirely fatty. There are no dominant masses or suspicious calcifications. Stable bilateral focal linear calcification in the inferior deep portions of both breasts. No other significant abnormalities are identified. There has been no significant change since the prior study. BI/SCRN MAMM (CAD)W/ELI BILAT IMPRESSION: Stable bilateral screening mammogram. Yearly follow-up mammogram recommended. (A) ASSESSMENT CATEGORY: BIRADS Category 2: Benign. A letter regarding these results will be sent to the patient by the facility within 30 days. Approximately 10% of breast cancers are not detected by mammography. A normal mammogram should not delay biopsy of a clinically suspicious abnormality. [id number] Electronically Signed: Moreno Camarillo MD at 11:51 EDT , Service support ,
== END ==
PROVIDERS: PCP Internal Medicine; Referring Provider Internal Medicine; Visit Provider Internal Medicine
DX: Z12.31 Encounter for screening mammogram for malignant neoplasm of breast (principal)
CPT/HCPCS: 77063; 77067

== ENCOUNTER → 2021-05-03 07:59 | Outpatient (CLI) | payer MEDICARE, SELFPAY ==
[2021-03-23 10:34] VITALS: BMI 31.1
[2021-05-03 10:44] LABS: Vitamin D,25 Hydroxy 38.8 ng/mL
[2021-05-03 10:49] LABS: PTHIN 56.7 pg/mL (18.4-80.1)
[2021-05-03 11:03] LABS: ALB/GLOB Ratio 1.1 RATIO (0.9-2.4); AST(SGOT) 41 U/L (15-37); Alanine Aminotransfer ALT/SGPT 66 U/L (13-56); Albumin, Serum 3.4 g/dL (3.2-5.0); Alkaline Phosphatase 64 U/L (45-117); Anion Gap 8 (5-15); BUN 13 mg/dL (7-18); BUN/Creat Ratio 21.5 RATIO (10-20); Calcium,Total 8.6 mg/dL (8.5-10.1); Chloride 107 mmol/L (98-107); Creatinine, Serum 0.61 mg/dL (0.55-1.02); EST Glomerular Filtration Rate 106 mL/min (>60); Est Glom Filt Rate - Afr Amer 128 mL/min (>60); Globulin 3.1 g/dL (2.2-4.2); Glucose 85 mg/dL (74-106); Protein, Total 6.5 g/dL (6.4-8.2); Sodium Level 139 mmol/L (136-145); T4 Free Direct 1.21 ng/dL (0.76-1.46); Thyroid Stim Hormone (TSH) 0.41 uIU/mL (0.358-3.74)
== END ==
LOC: MTLAB 08:00
PROVIDERS: PCP Internal Medicine; Referring Provider Internal Medicine Endocrinology, Diabetes & Metabolism; Visit Provider Internal Medicine Endocrinology, Diabetes & Metabolism
DX: D35.2 Benign neoplasm of pituitary gland (principal); M81.0 Age-related osteoporosis without current pathological fracture; Z79.52 Long term (current) use of systemic steroids; Z86.39 Personal history of other endocrine, nutritional and metabolic disease; E03.9 Hypothyroidism, unspecified
CPT/HCPCS: 36415; 80053; 82306; 83970; 84146; 84439; 84443

== ENCOUNTER → 2021-05-27 09:42 | Outpatient (CLI) | payer MEDICARE, SELFPAY ==
[2021-03-23 10:34] VITALS: BMI 31.1
[2021-05-27] MEDS: 0.9% NaCl Peripheral Flush Adult/Peds IV (09:51)
[2021-05-27] MEDS: Zoledronic Acid 5 MG 100 ML 300 MG IV (09:52)
[2021-05-27 09:56] VITALS: BP 102/61; PULSE 68; RESP 16; TEMP 36; O2SAT 97; BMI 31.1
== END ==
PROVIDERS: PCP Internal Medicine; Referring Provider Internal Medicine Endocrinology, Diabetes & Metabolism; Visit Provider Internal Medicine Endocrinology, Diabetes & Metabolism
DX: M81.0 Age-related osteoporosis without current pathological fracture (principal)
CPT/HCPCS: 96365; A4216; J3489

== ENCOUNTER → 2021-09-16 06:23 | Outpatient (CLI) | payer MEDICARE, SELFPAY ==
--- NOTE | 2021-09-16 06:48 | MRI_ITS ---
ACR Level 3 findings have been noted. An addendum which confirms receipt of the report will follow. STUDY: MRI LEFT WRIST WITHOUT CONTRAST REASON FOR EXAM: Left wrist pain after fall 2 months ago. TECHNIQUE: Standardized fat and water weighted pulse sequences were obtained in all 3 orthogonal planes. COMPARISON: Radiographs 07/19/2021. FINDINGS: There is a nondisplaced fracture of the distal radius (T1 coronal images 9-14) with bone edema. There is a mild bone contusion of the distal ulna (inversion recovery coronal images 11-13). There is a small effusion of the distal radioulnar joint (inversion recovery axial images 18, 19). There is a small central perforation of the radial aspect of the triangular fibrocartilage (inversion recovery coronal image 11). There is mild bone contusion of the triquetrum (inversion recovery coronal images 13, 14). There is a very small bone contusion of the proximal ulnar aspect of the lunate (inversion recovery coronal image 14) Normal radiocarpal, intercarpal and midcarpal articulations. Normal pisotriquetral articulation. Normal visualized interosseous scapholunate ligament. There is a small volume of fluid in the second dorsal compartment (inversion recovery axial images 8-11). There is a very small volume of fluid in the sixth dorsal compartment (inversion recovery axial image 21). There is mild flexor tenosynovitis (inversion recovery axial images 1, 21-23). Normal visualized median nerve. There is mild arthrosis of the carpometacarpal articulation of the thumb with mild chondral thinning (T1 coronal image 9). Normal second through fifth carpometacarpal articulations. There is a small cyst in the distal diaphysis of the first metacarpal (inversion recovery coronal image 12). There is mild edema in the subcutis adipose space. MRI/Upper Ext Joint Only(Routine) IMPRESSION: Nondisplaced fracture of the distal radius. Mild bone contusions of the distal ulna, triquetrum and lunate. Mild extensor carpi radialis longus and brevis tenosynovitis. Very mild extensor carpi ulnaris tenosynovitis. Mild flexor tenosynovitis. Small central perforation of the radial aspect of the triangular fibrocartilage. Mild arthrosis of the first carpometacarpal articulation. Small effusion of the distal radioulnar joint. Electronically Signed: Benny Maria MD at 8:38 EDT Tel , Service support ,
== END ==
PROVIDERS: PCP Internal Medicine; Referring Provider Internal Medicine; Visit Provider Internal Medicine
DX: M25.532 Pain in left wrist (principal)
CPT/HCPCS: 73221

== ENCOUNTER → 2022-03-06 | Outpatient (CLI) | payer MEDICARE, SELFPAY ==
--- NOTE | 2022-03-06 14:28 | BI_ITS ---
MAMMOGRAPHY - BILATERAL SCREENING 3-D TOMOSYNTHESIS REASON FOR EXAM: Female, 61 years old. SCREENING PERTINENT HISTORY: No significant family history. TECHNIQUE: 2-D mammograms and 3-D Tomosynthesis of the breast (s) were performed. CAD was performed. COMPARISON: 02/28/2021 FINDINGS: The breast composition is composed of scattered fibroglandular density. Scattered benign calcifications are seen. No dense spiculated masses or suspicious microcalcifications are identified. No architectural distortion is identified. There is no skin thickening or retraction. There has been no significant change since the prior study. BI/SCRN MAMM (CAD)W/ELI BILAT IMPRESSION: No mammographic signs of malignancy. Routine yearly mammograms recommended. ASSESSMENT CATEGORY: BIRADS Category 1: Negative. A letter regarding these results will be sent to the patient by the facility within 30 days. FOLLOW UP RECOMMENDATION: Yearly follow up mammogram recommended. (A) Approximately 10% of breast cancers are not detected by mammography. A normal mammogram should not delay biopsy of a clinically suspicious abnormality. Electronically Signed: Olegario Biggs MD at 15:15 EDT ,
== END | disposition home or self-care (01) ==
PROVIDERS: PCP Internal Medicine; Visit Provider Internal Medicine
DX: Z12.31 Encounter for screening mammogram for malignant neoplasm of breast (principal)
CPT/HCPCS: 77063; 77067

== ENCOUNTER → 2022-03-14 | Outpatient (CLI) | payer MEDICARE, SELFPAY ==
--- NOTE | 2022-03-14 10:52 | BD_ITS ---
STUDY: DUAL ENERGY X-RAY ABSORPTIOMETRY / DXA REASON FOR EXAM: Female, 61 years old. M810 TECHNIQUE: Bone Mineral Density (BMD) measurements of lumbar spine and left hip were obtained. COMPARISON: Comparison is made with prior study dated 02/25/2020. FINDINGS: Lumbar Spine (L1-L4): g/cm2 (1.226) / T-score (1.1) / Z-score (2.9) Findings are suggestive of normal bone density with a low fracture risk. Left Femur Total: g/cm2 (0.594) / T-score (-2.9) / Z-score (-1.7) Left Femoral Neck: g/cm2 (0.575) / T-score (-2.5) / Z-score (-1.0) The T-Scores on the most recent prior examination were: Lumbar Spine (L1-L4): There has been worsening of bone density since the previous examination. Left Femur Total: which represents no significant change. . BD/Dexa Bone Density Study IMPRESSION: The patient is considered osteoporotic as outlined below according to World Jose Organization (WHO) criteria with a high fracture risk. There has been worsening of bone density since the previous examination. Reference Information: The T-score is the number of standard deviations above or below the standard which is normal for young adults at their peak bone mineral density. The World Health Organization (WHO) interprets the T-scores as follows: Above -1 Normal bone density Between -1 and -2.5 Osteopenia Equal to / or below -2.5 Osteoporosis As a practical clinical guideline, osteopenia may be graded as follows: Mild -1 through -1.5 Moderate -1.6 through -2.0 Severe -2.1 through -2.4 The Z-score is the number of standard deviations above or below age-matched controls. A Z-score of less than -1.5 would be considered abnormal. References: 1. NIH Osteoporosis and Related Bone Diseases www osteo.org 2. International Society for Clinical Densitometry www iscd.org 3. National Osteoporosis Foundation www nof.org Electronically Signed: Moreno Camarillo MD at 14:34 EDT ,
[2022-03-14 15:14] LABS: Vitamin D,25 Hydroxy 31.2 ng/mL
[2022-03-14 15:24] LABS: ALB/GLOB Ratio 1.1 RATIO (0.9-2.4); AST(SGOT) 58 U/L (15-37); Alanine Aminotransfer ALT/SGPT 72 U/L (13-56); Albumin, Serum 3.5 g/dL (3.2-5.0); Alkaline Phosphatase 62 U/L (45-117); Anion Gap 6 (5-15); BUN 8 mg/dL (7-18); BUN/Creat Ratio 14.4 RATIO (10-20); Calcium,Total 8.7 mg/dL (8.5-10.1); Chloride 104 mmol/L (98-107); Creatinine, Serum 0.56 mg/dL (0.55-1.02); EST Glomerular Filtration Rate 117 mL/min (>60); Est Glom Filt Rate - Afr Amer 141 mL/min (>60); Free T3 2.4 pg/mL (2.18-3.98); Globulin 3.2 g/dL (2.2-4.2); Glucose 85 mg/dL (74-106); Potassium 3.5 mmol/L (3.5-5.1); Protein, Total 6.7 g/dL (6.4-8.2); Sodium Level 140 mmol/L (136-145); T4 Free Direct 1.05 ng/dL (0.76-1.46); Thyroid Stim Hormone (TSH) 0.49 uIU/mL (0.358-3.74)
== END | disposition home or self-care (01) ==
PROVIDERS: PCP Internal Medicine; Referring Provider Internal Medicine Endocrinology, Diabetes & Metabolism; Visit Provider Internal Medicine Endocrinology, Diabetes & Metabolism
DX: E03.9 Hypothyroidism, unspecified (principal); D35.2 Benign neoplasm of pituitary gland; M81.0 Age-related osteoporosis without current pathological fracture; Z86.39 Personal history of other endocrine, nutritional and metabolic disease; Z79.52 Long term (current) use of systemic steroids
CPT/HCPCS: 36415; 77080; 80053; 82306; 84439; 84443; 84481

== ENCOUNTER → 2022-06-09 | Outpatient (CLI) | payer MEDICARE, SELFPAY ==
[2022-06-09] MEDS: 0.9% NaCl Peripheral Flush Adult/Peds IV (12:37)
[2022-06-09 12:41] VITALS: BP 128/76; PULSE 80; RESP 16; TEMP 36; O2SAT 96; BMI 30.9
[2022-06-09] MEDS: Zoledronic Acid 5 MG 100 ML 300 MG IV (12:48)
[2022-06-09 13:16] VITALS: BP 125/76; PULSE 78; RESP 16; TEMP 36.3; O2SAT 99
== END | disposition home or self-care (01) ==
LOC: MEDOUTP 12:24
PROVIDERS: PCP Internal Medicine; Referring Provider Internal Medicine Endocrinology, Diabetes & Metabolism; Visit Provider Internal Medicine Endocrinology, Diabetes & Metabolism
DX: M81.0 Age-related osteoporosis without current pathological fracture (principal)
CPT/HCPCS: 96365; A4216; J3489

== ENCOUNTER → 2022-06-28 | Outpatient (CLI) | payer MEDICARE, SELFPAY ==
[2022-06-28 15:37] LABS: Vitamin D,25 Hydroxy 55.1 ng/mL
[2022-06-28 15:42] LABS: ALB/GLOB Ratio 1.1 RATIO (0.9-2.4); AST(SGOT) 36 U/L (15-37); Alanine Aminotransfer ALT/SGPT 71 U/L (13-56); Albumin, Serum 3.6 g/dL (3.2-5.0); Alkaline Phosphatase 61 U/L (45-117); Anion Gap 8 (5-15); BUN 16 mg/dL (7-18); BUN/Creat Ratio 26.8 RATIO (10-20); Calcium,Total 8.8 mg/dL (8.5-10.1); Chloride 99 mmol/L (98-107); EST Glomerular Filtration Rate 107 mL/min (>60); Est Glom Filt Rate - Afr Amer 130 mL/min (>60); Globulin 3.2 g/dL (2.2-4.2); Glucose 94 mg/dL (74-106); Potassium 3.8 mmol/L (3.5-5.1); Protein, Total 6.8 g/dL (6.4-8.2); Sodium Level 133 mmol/L (136-145)
== END | disposition home or self-care (01) ==
PROVIDERS: PCP Internal Medicine; Referring Provider Internal Medicine Endocrinology, Diabetes & Metabolism; Visit Provider Internal Medicine Endocrinology, Diabetes & Metabolism
DX: D35.2 Benign neoplasm of pituitary gland (principal); E03.9 Hypothyroidism, unspecified; M81.0 Age-related osteoporosis without current pathological fracture; Z86.39 Personal history of other endocrine, nutritional and metabolic disease; Z98.84 Bariatric surgery status
CPT/HCPCS: 36415; 80053; 82306

== ENCOUNTER → 2022-06-29 | Outpatient (CLI) | payer MEDICARE, SELFPAY ==
[2022-06-29 15:38] LABS: CPK Total, Creatine Kinase 66 U/L (26-192); Troponin-I HS 3 pg/mL (3.0-54.0)
[2022-07-05 03:07] LABS: Creatinine, Urine 23.5 mg/dL (Not Estab.); N-Telopeptide, Urine 59 nmol BCE (Not Estab.)
[2022-07-06 09:33] LABS: NTX:Creatinine Ratio, Urine 28 (0-89)
== END | disposition home or self-care (01) ==
PROVIDERS: PCP Internal Medicine; Referring Provider Internal Medicine Endocrinology, Diabetes & Metabolism; Visit Provider Internal Medicine Endocrinology, Diabetes & Metabolism
DX: R07.9 Chest pain, unspecified (principal); M81.0 Age-related osteoporosis without current pathological fracture
CPT/HCPCS: 82523; 82550; 82570; 84484

== ENCOUNTER → 2022-07-05 | Outpatient (CLI) | payer MEDICARE, SELFPAY ==
--- NOTE | 2022-07-05 07:55 | RAD_ITS ---
STUDY: X-RAY - ESOPHAGUS (BARIUM SWALLOW) WITH FLUOROSCOPY REASON FOR EXAM: Female, 62 years old. DYSPHAGIA TECHNIQUE: 14 view(s) of the esophagus were obtained following swallowing of barium. FLUOROSCOPY TIME (if supplied): (40 seconds) minutes/seconds COMPARISON: None. FINDINGS: There is no demonstrated esophageal foreign body. There is no demonstrated stricture or mucosal abnormality. Large hiatal hernia with gastroesophageal reflux. The patient is status post subtotal gastrectomy for gastric bypass surgery. The patient ingested a 12 mm tablet of barium without any difficulty. There is atherosclerotic calcification of the aortic arch with tortuosity of the descending aorta. Normal visualized pulmonary parenchyma. Normal visualized osseous structures of the thorax. RAD/Esophagus Dual Contrast IMPRESSION: Status post gastric bypass surgery. Large hiatal hernia with gastroesophageal reflux. Electronically Signed: Moreno Camarillo MD at 8:56 EDT ,
== END | disposition home or self-care (01) ==
LOC: RAD 07:55
PROVIDERS: PCP Internal Medicine; Referring Provider Internal Medicine; Visit Provider Internal Medicine
DX: R13.10 Dysphagia, unspecified (principal)
CPT/HCPCS: 74221

== ENCOUNTER → 2022-10-09 | Outpatient (CLI) | payer MEDICARE, SELFPAY ==
--- NOTE | 2022-10-09 16:38 | CT_ITS ---
EXAM: CT RIGHT UPPER EXTREMITY WITHOUT INTRAVENOUS CONTRAST CLINICAL INDICATION: PRE-OP TECHNIQUE: Helically acquired images were obtained of the right upper extremity without intravenous contrast. 2-D reformats were performed by the technologist. CTDIvol = ( 24.80 ) mGy, DLP = ( 501.79 ) mGycm This CT exam was performed using one or more of the following dose reduction techniques: automated exposure control, adjustment of the mA and/or kV according to patient size, and/or use of iterative reconstruction technique. This report was created using [employer] report [employer] technology. COMPARISON: None. FINDINGS: Severe osteoarthrosis of the glenohumeral joint and acromioclavicular joint. Widening of the posterior aspect of the humeral head-glenoid articulation suggest instability. There is pseudoarticulation of the humeral head with the undersurface of the acromion, likely secondary to chronic full-thickness rotator cuff tear(s). Degenerative changes of the spine. Small corticated ossific body is identified anterior to the acromion. Suspect fluid in the subacromial/subdeltoid bursa which can be seen with bursitis. CT/Extremity Upper without Contra IMPRESSION: Preoperative planning study with chronic findings as above. Electronically Signed: Yaniv Sheikh MD at 3:16 EST ,
== END | disposition home or self-care (01) ==
LOC: CT 16:35
PROVIDERS: PCP Internal Medicine; Referring Provider Student in an Organized Health Care Education/Training Program; Visit Provider Student in an Organized Health Care Education/Training Program
DX: M19.011 Primary osteoarthritis, right shoulder (principal)
CPT/HCPCS: 73200

== ENCOUNTER → 2022-10-30 | Outpatient (CLI) | payer MEDICARE, SELFPAY ==
--- NOTE | 2022-10-30 13:11 | RAD_ITS ---
INDICATION: PRE-OP EXAMINATION/TECHNIQUE: X-RAY - XR Chest 2 Views COMPARISON: Two-view chest x-ray from 03/12/2019 FINDINGS: LINES/DEVICES: None. LUNGS: No pulmonary edema or focal airspace consolidation. No sizable pleural effusion. No pneumothorax detected. Mild chronic elevation right hemidiaphragm. MEDIASTINUM AND CARDIOVASCULAR STRUCTURES: Heart size within normal limits. Mediastinal contours unremarkable. BONES AND SOFT TISSUES: Skeletal degenerative changes. Surgical clips within upper abdomen. RAD/Chest PA and Lateral IMPRESSION: No radiographic evidence of acute cardiopulmonary disease. Electronically Signed: Anastacio Espino MD at 1:33 EST ,
[2022-10-30 16:09] LABS: Anion Gap 5 (5-15); BUN 10 mg/dL (7-18); BUN/Creat Ratio 17.5 RATIO (10-20); Calcium,Total 8.7 mg/dL (8.5-10.1); Chloride 107 mmol/L (98-107); Creatinine, Serum 0.57 mg/dL (0.55-1.02); EST Glomerular Filtration Rate 113 mL/min (>60); Est Glom Filt Rate - Afr Amer 137 mL/min (>60); Glucose 80 mg/dL (74-106); Sodium Level 140 mmol/L (136-145); Thyroid Stim Hormone (TSH) 0.31 uIU/mL (0.358-3.74)
[2022-10-30 17:40] LABS: Absolute Lymphocyte Count 2.04 X10^3/uL (0.83-4.51); Absolute Neutrophil Count 3.9 X10^3/uL (2.0-7.7); Basophil# 0.04 X10^3/uL; Basophil% 0.6 % (0-1); Eosinophil# 0.18 X10^3/uL; Eosinophils% 2.7 % (0-5); Hematocrit 42.6 % (37-47); Hemoglobin 15.4 g/dL (12.0-15.0); Lymphocyte # 2.04 X10^3/ul (0.83-4.51); Lymphocyte % 30.6 % (19-41); Mean Corp Hgb Conc 36.2 g/dL (32-36); Mean Corpuscular Hgb 34.3 pg (27.0-32.0); Mean Corpuscular Volume 94.9 fL (81-99); Mean Platelet Vol. 9.6 fl (6.2-12.0); Monocyte# 0.46 X10^3/uL; Monocyte% 6.9 % (0-10); NRBC Flagged by Analyzer 0 % (0-5); Neutrophil # 3.94 X10^3/uL (2.7-7.7); Neutrophil % 59.1 % (47-70); Platelet Count 247 K/mm3 (150-450); RBC Distribution Width CV 12.6 % (11.6-14.6); Red Blood Count 4.49 M/mm3 (4.2-5.4); White Blood Count 6.7 K/mm3 (4.4-11.0)
== END | disposition home or self-care (01) ==
LOC: MTRAD 13:09
PROVIDERS: Anesthesiology; PCP Internal Medicine; Referring Provider Student in an Organized Health Care Education/Training Program; Visit Provider Student in an Organized Health Care Education/Training Program
DX: Z01.818 Encounter for other preprocedural examination (principal); R93.89 Abnormal findings on diagnostic imaging of other specified body structures
CPT/HCPCS: 36415; 71046; 80048; 83735; 84443; 85025; 87081

== ENCOUNTER 2022-11-09 15:54 | Observation (INO) | payer MEDICARE, SELFPAY ==
[2022-11-09] VITALS (10 sets, daily range): BP systolic 105–129; BP diastolic 63–80; PULSE 69–83; RESP 12–18; TEMP 36.2–36.8; O2SAT 90–98; BMI 31.4; BMI 31.5
[2022-11-09] MEDS: Magnesium 1 GM over 15 mins IV (08:58)
[2022-11-09] MEDS: Acetaminophen 500 MG Tablet 1000 MG PO (08:59)
[2022-11-09] MEDS: Gabapentin 600 MG Tablet PO (08:59)
[2022-11-09] MEDS: Celecoxib 200 MG Capsule 400 MG PO (08:59)
[2022-11-09] MEDS: Lactated Ringers 1,000 ML 15 ML IV ×2 (09:00→12:20)
[2022-11-09] MEDS: Hydrocortisone Sod Succinate 100 MG/2 ML Vial IV (09:52)
[2022-11-09] MEDS: Cefazolin 2 GM in 0.9% Normal Saline 100 ML IV (10:20)
[2022-11-09] MEDS: TXA 1000mg in NS100 100ml (IVPB at Incision) 660 MG IV (10:30)
--- NOTE | 2022-11-09 10:50 | SHO_PTH ---
PATIENT: ALBERTINA WORKMAN LOC: [facility] U#:[id number] AGE/SX: 62/F ROOM: [facility] [place]09/[address]: Dr. Nirav Whitney DO : 1960 BED: 1 DIS: 11/10/2022 SPEC #: [id number] RECD: 11/09/22 16:40 STATUS: PRAMOD NG #: [id number] MOR: 11/09/22 10:[address]: Nirav Whitney DEPT: SURGICAL PATHOLOGY RECD BY: Ursula Anaya ENTERED: 11/10/22 08:59 SP TYPE: HUMERUS OTHR DR: DO Dr. Nirav Coon MD Tissues: Humerus, NOS Procedures: Decalcification bone/plaque Surgery Specimen Level IV HEADER OPERATION: ERAS, total shoulder replacement, reverse, carpal tunnel release PRE-OP DIAGNOSIS: Total shoulder replacement TISSUE SUBMITTED: Bone ? right shoulder MICROSCOPIC DIAGNOSIS Bone of right shoulder, total shoulder replacement: Severe degenerative joint disease. AM:vern 11/16/2022 MICROSCOPIC DESCRIPTION Slides are reviewed. GROSS DESCRIPTION Received is one container labeled with the patient's name and designated bone right shoulder. The specimen consists of a humeral head measuring 5 x 5 x 2 cm. The articular surface shows areas of erosion, eburnation and osteophyte formation. Project Technician sections are submitted in one cassette after decalcification. / EVA:vern 11/10/2022 TC:5 CPT: 00740, 05994
[2022-11-09] MEDS: TXA 1000mg in NS100 100ml (IVPB at Closure) 660 MG IV (11:50)
--- NOTE | 2022-11-09 12:40 | RAD_ITS ---
STUDY: X-RAY - RIGHT SHOULDER REASON FOR EXAM: Female, 62 years old. post op TECHNIQUE: 2 view(s) of the shoulder. COMPARISON: Chest x-ray dated October 30, 2022 FINDINGS: The humeral head has been resected and a newly placed prosthesis is present with its stem well seated within the proximal one third shaft. The humeral prosthesis proximal head articulating component demonstrates good alignment with the newly placed glenoid ball prosthesis. The glenoid prosthesis is anchored into the bone by several cancellous screws. Expected postoperative gas and soft tissue swelling noted around the shoulder joint. No occult fractures. Normal visualized pulmonary apex. Normal acromioclavicular joint. Normal acromion. Surgical clips are present in the upper abdomen. RAD/Shoulder min 2 Views IMPRESSION: Status post right shoulder arthroplasty Electronically Signed: Nam Gonzalez MD at 13:44 EST ,
[2022-11-09 12:45] LABS: Bedside Glucose 99 mg/dL (74-106)
--- NOTE | 2022-11-09 14:56 | PCM.PN.HOSP ---
Subjective Subjective 62-year-old female presents to the hospital for an elective right shoulder surgery for osteoarthritis as well as a right carpal tunnel release. She is doing well postoperatively on room air, vital signs are stable. Objective Data Objective Data Vital Signs: Vital Signs Temp Pulse Resp BP Pulse Ox O2 Del Method O2 Flow Rate 98.3 F 74 18 105/64 97 Room Air 2 11/09/22 13:35 11/09/22 13:35 11/09/22 13:35 11/09/22 13:35 11/09/22 13:35 11/09/22 13:35 11/09/22 13:09 Oxygen Flow Rate (L/min) 2 Oxygen Delivery Method Room Air Weight: 171 lb 15.369 oz Body Mass Index (BMI) 31.4 Intake & Output: Intake and Output for Last 24 Hours 11/08/22 11/09/22 11/10/22 03:59 03:59 03:59 Intake Total 482 / 482 Balance 482 / 482 Lab / Micro Data Labs: Laboratory Results - last 24 hr 11/09/22 08:57: POC Glucose 99 Radiography Diagnostic Testing: Radiology Impression Shoulder X-Ray 11/09/22 12:40 IMPRESSION: Status post right shoulder arthroplasty Electronically Signed: Nam Gonzalez MD at 13:44 EST Reading Location ID and State: [facility] / [place] , Service support , Physical Exam Narrative General: Alert, Oriented x3, Cooperative, No apparent distress HEENT: Atraumatic, PERRLA, EOMI, Normocephalic Oral: Moist Mucosa Neck: Supple, No JVD Lungs: Clear to auscultation, Normal air movement, No rhonchi, No wheeze, No rales Cardiovascular: Regular rate, Regular Rhythm, Normal S1, Normal S2, No murmurs Abdomen: Soft, Non Tender, Non-Distended, No Hepato-splenomegaly Extremities: No edema, Capillary Refill Less than 3 Seconds Skin: Dressing is intact in her right shoulder Musculoskeletal: No Tenderness to Palpation of Joints or Extremities Neurological: Cranial nerves II-XII grossly intact, Motor Exam 5/5 strength throughout, Sensory exam intact to light touch and pain Psych/Mental Status: Normal Affect, Appropriate Assessment & Plan Assessment/Plan (1) Status post total replacement of right shoulder: PLAN: Plan 1. Status post total right shoulder replacement due to osteoarthritis with a right carpal tunnel release ? Pain management per primary ? PT/OT per primary 2. History of adrenalectomy with steroid deficiency/HTN ? Given her surgery, will increase her steroid dose while she is here and then on discharge and resume her new home steroid dose of fludrocortisone 0.05 mg every other day as well as prednisone 4 mg every night ? She did receive 100 mg of hydrocortisone in the OR ? Can resume her home blood pressure medications and monitor her renal function in the morning 3. Hypothyroidism ? Stable ? Continue with her home Synthroid 4. GERD ? Stable ? Continue with PPI DVT: Aspirin Thank you for the consult, will continue to follow peripherally Charges/Coding Visit Charges OBSV E&M: 74406 Subsequent observation care L2
[2022-11-09] MEDS: Calcium (Elemental) 500 MG Tablet PO (17:26)
[2022-11-09] MEDS: Cefazolin 1 GM/50 ML BAG IV (18:41)
[2022-11-09] MEDS: Senna/Docusate Sodium 1 Tablet 2 TABLET PO (22:31)
[2022-11-09] MEDS: predniSONE 1 MG Tablet 4 MG PO (22:31)
--- NOTE | 2022-11-09 23:23 | OP.PCM_ITS ---
Report of Operation Date of Procedure: 11/09/22 Description of Surgical Findings:: Preoperative diagnosis: Right shoulder rotator cuff arthropathy Postoperative diagnosis: Right shoulder rotator cuff arthropathy Procedure: Right reverse total shoulder arthroplasty Surgeon: Nirav Whitney DO Nailing Machine Operator: ANA Tolbert Anesthesia: General endotracheal [employer] Vendor: Alejo Bustamante CRNA Complications: None apparent Drains: None Estimated blood loss: 200 cc Urinary output: None IV fluids: 1200 cc crystalloid Specimens: Humeral head resection right Surgical implants: Tornier Aequalis PerFORM+ reversed standard baseplate 25 mm diameter +6 mm lateralization, standard glenosphere cobalt chrome 36 mm diameter, Tornier perform inlay stem size #2 plus, +6 size number 2 39 mm diameter polyethylene insert, 30 mm central screw. Peripheral screws x4 Surgical indications: This is a 62-year-old female with persistent right shoulder pain and weakness. X-rays revealed rotator cuff arthropathy. I recommended a reverse shoulder arthroplasty. We obtained a preoperative CT scan for planning. The risks, benefits, alternatives the procedure was reviewed with the patient and he agreed to proceed. Risks included but were not limited to bleeding, infection, instability, loss of life or limb, risk of anesthesia, neurovascular injury, persistent pain, stiffness, prolonged immobilization, need for additional surgery, loosening of orthopedic hardware. She expressed understanding and wi shed to proceed with surgery. Surgical details: Patient arrived to [facility] morning of the procedure and was greeted by the same day surgery staff. Prior to her procedure, I greeted the patient in the preoperative holding area I identified the patient by name, record number, and date of . Informed consent was confirmed. The operative extremity was marked. All questions were answered to patient satisfaction. Patient was also seen by anesthesia staff. Interscalene block was administered in the PACU prior to the procedure by the anesthesia staff. At time of her procedure, patient was brought to the operative suite and positioned supine on a standard table with a beachchair attachment. General anesthesia was induced after all bony prominences were well-padded. Endotracheal tube was placed. After adequate anesthesia and securing the tube, we prepared the patient to be positioned in the beachchair position. A well- padded heading repairer was applied. The nonoperative extremity was placed in a well arm hernandez. She was then brought into the beachchair position after we confirmed an appropriate blood pressure. We then spun the bed 45 degrees. The operative extremity was then prepared. In the butterfly wing of the bed was removed and a well-padded torso strap was applied to secure the patient to the bed. The operative extremity was now free. We then prepped and draped the right upper extremity in normal, sterile orthopedic fashion. We then performed a timeout with all parties in attendance in agreement with the side, site, and operation be performed. 2 g Ancef was administered prior to incision by anesthesia staff, as well as 1 g TXA IV. No concerns were voiced and we elected to proceed. I first marked a standard deltopectoral incision just lateral to the coracoid process in line with the long axis of the humerus. Skin was sharply incised with 10 blade scalpel. I then dissected bluntly through the subcutaneous layers and found the fat stripe between the deltoid and pectoralis major. The cephalic vein was then identified and protected. It was retracted laterally with the deltoid. I then bluntly dissected underneath the deltoid with a Cruz elevator. [place] retractor was placed. The upper 1 cm of the pectoralis major was released. I then identified the long head of the biceps tendon in the intertubercular groove. This was tenodesed in situ with #2 FiberWire. I then amputated the biceps proximal to the tenodesis site and followed the tendon to the supraglenoid tubercle where it was amputated. This identified the lesser and greater tuberosities. The supraspinatus was completely torn and retracted with an exposed greater tuberosity. I then performed a subscapularis peel while rotating the humerus externally. I tagged the subscapularis for possible repair later with a tagging suture. I then made a anatomic neck cut of the cartilaginous surface of the humeral head. Sizing plate for a size #2 stem was utilized to determine appropriate reaming size. A central pin was placed engaging the lateral cortex of the humerus. A size #2 reamer was used to ream the humeral metaphysis and prepare for the inlay stem. A canal finding reamer was utilized prior to sequential broaching to a size #2 short stem with excellent rotational and axial purchase in the humerus. I remove the broach handle left the size #[address] I then subluxed the humerus posterior to the glenoid. I then placed retractors around the posterior and anterior glenoid to expose the glenoid. Glenoid labrum was removed with Bovie cautery protecting the axillary nerve. We then used the custom guide from Lg to position our centering pin, exiting approximately 25 mm from the joint surface along the anterior scapula. Guide was removed and pin was analyzed and compared to preoperative planning. It appeared to be in appropriate position. The augmented wedge reamer was then placed to sit flush with the eyak glenoid. Rotation of the wedge reamer appeared consistent with preoperative planning. This was reamed about 2 mm deep to cortical bone. We then remove the reamer and used the cannulated drill for the central 25 mm screw. Pin was removed. Post and baseplate was assembled on the back table. We then inserted the baseplate and central screw the assembled baseplate to an appropriate depth and rotation of the wedge to sit flush with the prepared glenoid surface. A [place] was used to confirm depth. Cortical screws then were placed in the peripheral holes with good purchase. The baseplate had excellent purchase and the entire scapula would rotate with rotation of the baseplate. We then impacted the 36 mm glenosphere with a standard eccentricity and tightened the locking screw mechanism. We then removed retractors and turned our attention back to the humerus. I trialed varying polyethylene sizes. The +6 mm insert achieved excellent range of motion and stability in all planes of motion. We selected this as our final size. We removed trials from the humerus after final dislocation. I copiously irrigated the canal. Broach was placed on hand and then impacted to an appropriate depth. Final +6 mm polyethylene insert was placed. Final reduction was then performed. I then copiously irrigated the wound with irrisept and normal saline solution. Hemostasis was excellent. The axillary nerve was visualized and appeared to be intact. The subscapularis was then identified with a tagging suture. Repair would have been likely under undue tension and likely failed. I elected to not perform a subscapularis repair. We then copiously irrigated the wound with sterile Betadine and normal saline solution. We reapproximated the interval with 0 Vicryl suture. Subcutaneous layers were reapproximated with 2 -0 Vicryl suture. Skin was finally running V- Loc 3-0 Monocryl suture and Dermabond. A sterile silver Mepilex dressing was applied. Patient was then placed in a simple sling. Patient tolerated procedure well without complication. She was positioned back in the supine position extubated in the operative suite. She was transferred to the [facility] and subsequently to PACU in stable condition. Intraoperative medications: 2 g Ancef IV, 1 g TXA IV x2 Post Operative Plan: Weightbearing: Nonweightbearing right upper extremity, okay for pendulums. Range of motion of wrist elbow and hand as tolerated. Antibiotics: 2 g Ancef IV prior to incision, 24 hours IV antibiotics postoperatively DVT Prophylaxis: Aspirin enteric-coated 81 mg twice daily starting tomorrow Larios: None Dressing: Maintain silver dressing x7 days. Okay to shower dressing on started on day 4 X-Rays: 2 weeks postop in the office Pain Medication: Hydrocodone upon discharge Follow-up: 2 weeks post-operatively with me in the office
[2022-11-10] MEDS: HYDROcodone Bitartrate/Apap 5/325 Tablet PO ×3 (02:35→11:14)
[2022-11-10] MEDS: Cefazolin 1 GM/50 ML BAG IV (02:37)
[2022-11-10] MEDS: 0.9% NaCl Peripheral Flush Adult/Peds IV (02:38)
[2022-11-10 05:04] LABS: Hematocrit 35.2 % (37-47); Hemoglobin 12.7 g/dL (12.0-15.0); Mean Corp Hgb Conc 36.1 g/dL (32-36); Mean Corpuscular Hgb 34.6 pg (27.0-32.0); Mean Corpuscular Volume 95.9 fL (81-99); Mean Platelet Vol. 9.4 fl (6.2-12.0); Platelet Count 176 K/mm3 (150-450); RBC Distribution Width CV 12.5 % (11.6-14.6); RBC Distribution Width SD 43.8 fl (35.1-43.9); Red Blood Count 3.67 M/mm3 (4.2-5.4); White Blood Count 10.8 K/mm3 (4.4-11.0)
[2022-11-10 05:25] LABS: Anion Gap 6 (5-15); BUN 11 mg/dL (7-18); BUN/Creat Ratio 25.7 RATIO (10-20); Calcium,Total 8.3 mg/dL (8.5-10.1); Chloride 106 mmol/L (98-107); Creatinine, Serum 0.43 mg/dL (0.55-1.02); EST Glomerular Filtration Rate 158 mL/min (>60); Est Glom Filt Rate - Afr Amer 191 mL/min (>60); Estimated Creatinine Clearance 104.54 ml/min; Glucose 152 mg/dL (74-106); Potassium 3.7 mmol/L (3.5-5.1); Sodium Level 138 mmol/L (136-145)
[2022-11-10 06:58] VITALS: BP 114/69; PULSE 78; RESP 18; TEMP 37.1; O2SAT 97
[2022-11-10 06:59] VITALS: BMI 31.5
[2022-11-10] MEDS: Levothyroxine 88 MCG Tablet PO (07:02)
--- NOTE | 2022-11-10 07:48 | PN.ORTHO_ITS ---
Subjective Subjective Patient seen and examined. Reports soreness in her right shoulder, otherwise denies new symptoms. Tolerating oral intake without nausea or vomiting. Denies fevers, chills, chest pain or shortness of breath. Objective Data Objective Data Vital Signs: Vital Signs Temp Pulse Resp BP Pulse Ox O2 Del Method O2 Flow Rate 98.8 F 78 18 114/69 97 Room Air 2 11/10/22 06:58 11/10/22 06:58 11/10/22 06:58 11/10/22 06:58 11/10/22 06:58 11/10/22 06:58 11/09/22 13:09 Oxygen Flow Rate (L/min) 2 Oxygen Delivery Method Room Air Weight: 171 lb 15.369 oz Body Mass Index (BMI) 31.4 Intake & Output: Intake and Output for Last 24 Hours 11/08/22 11/09/22 11/10/22 23:59 23:59 23:59 Intake Total 1582 / 1582 540 / 540 Balance 1582 / 1582 540 / 540 Lab / Micro Data Result Diagrams: 11/10/22 04:04 11/10/22 04:04 Labs: Laboratory Results - last 24 hr 11/09/22 08:57: POC Glucose 99 11/10/22 04:04: WBC 10.8, RBC 3.67 L, Hgb 12.7, Hct 35.2 L, MCV 95.9, MCH 34.6 H , MCHC 36.1 H, RDW Std Deviation 43.8, RDW Coeff of Alex 12.5, Plt Count 176, MPV 9.4 11/10/22 04:04: Sodium 138, Potassium 3.7, Chloride 106, Carbon Dioxide 26.0, Anion Gap 6, BUN 11, Creatinine 0.43 L, Estim Creat Clear Calc 104.54, Est GFR (MDRD) Af Amer 191, Est GFR (MDRD) Non-Af 158, BUN/Creatinine Ratio 25.7 H, Glucose 152 H, Calcium 8.3 L Radiography Diagnostic Testing: Radiology Impression Shoulder X-Ray 11/09/22 12:40 IMPRESSION: Status post right shoulder arthroplasty Electronically Signed: Nam Gonzalez MD at 13:44 EST , Physical Exam Narrative General - A&Ox3, NAD. VSS/AF. Right upper Extremity - SILT & 5/5 in radial, ulnar, musculocutaneous, axillary, and median nerve distributions. Radial, ulnar pulses 2+. Compartments soft and compressible. BCR in finger tips. Incisional dressings C/D/I. Cardinal motions of right hand are intact. Negative Walter sign bilaterally Assessment & Plan Assessment/Plan (1) Status post total replacement of right shoulder: PLAN: POD#1 s/p right reverse total shoulder arthroplasty - Pain control - Medicine following for medical management. Appreciate input regarding stress testing for chronic steroid use - PT/OT - DVT PPX -aspirin 81 mg twice daily, SCDs, RAMA lombardo, early mobilization -Anticipate discharge to home today. - Case management - D/C planning
[2022-11-10] MEDS: Calcium (Elemental) 500 MG Tablet PO (08:16)
[2022-11-10] MEDS: Aspirin E.C. 81 MG Tablet PO (08:16)
[2022-11-10] MEDS: Triamterene 37.5MG/Hctz 25MG Capsule 1 CAP PO (08:17)
[2022-11-10] MEDS: Potassium Chloride Oral Tablet 20 MEQ 40 MEQ PO (08:19)
[2022-11-10] MEDS: Famotidine 20 MG Tablet PO (08:19)
[2022-11-10] MEDS: FLUoxetine 20 MG Capsule PO (08:20)
[2022-11-10] MEDS: Senna/Docusate Sodium 1 Tablet 2 TABLET PO (08:20)
[2022-11-10 09:35] VITALS: BMI 31.5
[2022-11-10 09:53] VITALS: BP 122/62; PULSE 75; RESP 16; TEMP 36.7; O2SAT 98
--- NOTE | 2022-11-10 10:48 | CASEMGMT ---
OVIDIO STACY Assessment: Face to Face with pt for initial transition planning/care coordination assessment. OVIDIO STACY introduced self and role at [facility], pt voices understanding and consents to assessment. Pt sitting up in chair. Pt is A/O x4 and answers all questions appropriately at this time. Care providers, pharmacy, and demographics verified/updated. Admitting Dx: R Shoulder Replacement PCP: Kelli Senior. Specialists: Rema, Endocrinology; Jacqueline, Ophthalmology. Preferred Pharmacy: [facility]. Insurance: [employer] Medicare PPO. Prescription Benefit: Yes. LW/HPOA: Pt denies having a LW/HPOA. Interested in making an appointment with [facility] for AD. [facility] AD brochure provided. LNOK: Benny Rosario, . Living Arrangements: Pt lives with in a two story home. There are five steps to enter with a rail. Pt states it will be tricky using the steps after DC but states is able to assist when needed. Pt is I in ADLs. Pt's can assist with ADLs as well. Transportation: Pt drives self and denies concerns with transportation. Pt's will assist with transportation after DC. DME/HHC/SNF: Pt has the following: cane, walker, BSC, and built-in shower bench. Pt denies needing any other DME. Pt had [facility], in the past, after a surgery. Pt was at [place] after a hip replacement. Pt has a Cpap through [facility] [employer]. Pt reports having necessary supplies and denies any oxygen at home or with Cpap. Pt states no concerns with going home at time of dc. Pt denies the need for HHC. Pt's is able to assist if needed. Pt states no further concerns/needs. Pt has a f/u appt with Dr. Whitney on 11/24 and first [facility] appt on 11/24. CM to follow. Advised pt to ask CM if any further question/concerns/needs arise, voices understanding. Pt Goal: Home with outpt therapy at [facility]. Plan:? TBD.
[2022-11-10 13:13] VITALS: BP 118/60; PULSE 81; RESP 17; TEMP 36.8; O2SAT 97
--- NOTE | 2022-11-10 13:13 | PCM.DC.SUM ---
Providers Date of Admission: 11/09/22 Primary Care Physician: Dr. Kelli Senior, DO Consultations 11/09/22 12:07 Consult: Hospitalist Routine Consulting Provider: Nirav Ramos Reason for Consult: Post op total shoulder, medical management EMERGENT Consult: No MD Notified: Yes Date Notified: 11/09/22 Time Notified: 14:49 Method of Notification: Text Reason For Visit: rt total shoulder replacement reverse, carpal tunn Diagnosis Discharge Diagnosis (1) Status post total replacement of right shoulder: Status: Acute Code(s): Z96.611 - Presence of right artificial shoulder joint Plan: POD#1 s/p right reverse total shoulder arthroplasty, carpal tunnel release - Pain control - Medicine following for medical management. Appreciate input regarding stress testing for chronic steroid use - PT/OT - DVT PPX -aspirin 81 mg twice daily, SCDs, RAMA hose, early mobilization -Anticipate discharge to home today. - Case management - D/C planning Medications at Discharge Home Medications biotin 5,000 mcg disintegrating tablet 10,000 mcg PO QDAY 12/19/17 calcitriol 0.25 mcg capsule 0.25 mcg PO QDAY OSTEOPOROSIS 12/19/17 calcium carbonate 500 mg calcium (1,250 mg) tablet 500 mg PO BID 12/19/17 ergocalciferol (vitamin D2) 1,250 mcg (50,000 unit) capsule 50,000 unit PO QWEEK 12/19/17 fludrocortisone 0.1 mg tablet 0.05 mg PO QODAY STEROID REPLACEMENT 12/19/17 fluoxetine 20 mg capsule (Prozac) 20 mg PO QDAY 12/19/17 levothyroxine 88 mcg tablet (Synthroid) 88 mcg PO DAILY 12/19/17 mecobalamin (vitamin B12) 1,000 mcg disintegrating tablet,sublingual 1,000 mcg sublingual QWEEK 12/19/17 omeprazole 20 mg capsule,delayed release 40 mg PO ONCE 12/19/17 pediatric multivitamin no.76 (Gummy Dinos chewable tablet) 1 tab PO QDAY 12/19/17 prednisone 2 mg tablet,delayed release 4 mg PO QHS 12/19/17 triamterene 37.5 mg-hydrochlorothiazide 25 mg capsule (Dyazide) 1 cap PO QAM 12/19/17 potassium chloride 20 mEq oral packet 40 meq PO DAILY 06/01/20 aspirin 81 mg tablet,delayed release 81 mg PO BID #60 tabs 11/10/22 hydrocodone-acetaminophen 5-325mg 5mg-325mg 1 tab PO Q4H PRN PRN Pain Score 1-10 7 days #42 tabs 11/10/22 meloxicam 7.5 mg tablet 7.5 mg PO BID 30 days #60 tabs 11/10/22 Hospital Course Summary of Care Provided Minutes Spent on Discharge: 15 Hospital Course: Patient underwent uncomplicated right reverse total shoulder arthroplasty and carpal tunnel release on the right on 11/09/2022. She was placed in observation overnight for medical monitoring and early convalescence. She worked well with physical occupational therapies. Internal medicine consult was placed. She received stress dosing steroids for chronic steroid use. She was able to be safely discharged home on postoperative day #1. Physical Exam Narrative General - A&Ox3, NAD. VSS/AF. Right upper Extremity - SILT & 5/5 in radial, ulnar, musculocutaneous, axillary, and median nerve distributions. Radial, ulnar pulses 2+. Compartments soft and compressible. BCR in finger tips. Incisional dressings C/D/I. Cardinal motions of right hand are intact. Negative Walter sign bilaterally Weight / BMI Weight Weight: 171 lb 15.369 oz Body Mass Index (BMI) 31.4 ABG / Lab / Microbiology Data Result Diagrams: 11/10/22 04:04 11/10/22 04:04 Laboratory: Laboratory Results - last 24 hr 11/10/22 04:04: WBC 10.8, RBC 3.67 L, Hgb 12.7, Hct 35.2 L, MCV 95.9, MCH 34.6 H, MCHC 36.1 H, RDW Std Deviation 43.8, RDW Coeff of Alex 12.5, Plt Count 176, MPV 9.4 11/10/22 04:04: Sodium 138, Potassium 3.7, Chloride 106, Carbon Dioxide 26.0, Anion Gap 6, BUN 11, Creatinine 0.43 L, Estim Creat Clear Calc 104.54, Est GFR (MDRD) Af Amer 191, Est GFR (MDRD) Non-Af 158, BUN/Creatinine Ratio 25.7 H, Glucose 152 H, Calcium 8.3 L Radiography Diagnostic Testing: Radiology Impression Shoulder X-Ray 11/09/22 12:40 IMPRESSION: Status post right shoulder arthroplasty Electronically Signed: Nam Gonzalez MD at 13:44 EST Reading Location ID and State: [facility] / [place] , Service support , Meaningful Use Info Meaningful Use Diagnoses (Choose all that apply): None applicable Discharge Plan Admission Admit Date/Time: 11/09/22 15:54 Primary Reason for Your Visit: Right shoulder replacement Attending Provider: Nirav Whitney Primary Care Provider: Kelli Senior Consulting Providers: Nirav Ramos Instructions Additional Instructions / Restrictions: Follow preprinted instructions from Dr. Whitney's office. Discharge Orders/Prescriptions Prescriptions: New aspirin 81 mg Tablet,Delayed Release (Dr/Ec) 81 mg PO BID Qty: 60 0RF hydrocodone-acetaminophen 5-325 mg Tablet 1 tab PO Q4H PRN PRN (Reason: Pain Score 1-10) 7 Days Qty: 42 0RF meloxicam 7.5 mg Tablet 7.5 mg PO BID 30 Days Qty: 60 0RF Continued fluoxetine [Prozac] 20 mg capsule 20 mg PO QDAY triamterene-hydrochlorothiazid [Dyazide] 37.5-25 mg capsule 1 cap PO QAM prednisone 2 mg tablet,delayed release 2 mg tablet,delayed release (DR/EC) 4 mg PO QHS Label Comments: take 2 tabs levothyroxine [Synthroid] 88 mcg tablet 88 mcg PO DAILY omeprazole 20 mg capsule,delayed release(DR/EC) 40 mg PO ONCE biotin 5,000 mcg tablet,disintegrating 10,000 mcg PO QDAY fludrocortisone 0.1 mg tablet 0.05 mg PO QODAY ergocalciferol (vitamin D2) 50,000 unit capsule 50,000 unit PO QWEEK calcitriol 0.25 mcg capsule 0.25 mcg PO QDAY mecobalamin (vitamin B12) 1,000 mcg tablet,disintegrating 1,000 mcg SUBLINGUAL QWEEK pediatric multivitamin no.76 [Gummy Dinos] tablet,chewable 1 tab PO QDAY calcium carbonate 500 mg calcium (1,250 mg) tablet 500 mg PO BID potassium chloride 20 mEq packet 40 meq PO DAILY Discontinued ibuprofen 200 mg tablet 200 mg PO Q6H PRN (Reason: Pain) Referrals / Follow Up: Kelli Senior DO [Primary Care Provider] - Nirav Whitney DO [Med Staff - Active Staff] - Disposition Disposition (needs filled in before D/C Order can be placed): Home, Self Care
[2022-11-10 13:19] VITALS: BMI 31.5
== END 2022-11-10 14:17 | disposition home or self-care (01) ==
LOC: SDC 16:59 → MS3 16:59
PROVIDERS: Admitting Provider Student in an Organized Health Care Education/Training Program; PCP Internal Medicine; Visit Provider Student in an Organized Health Care Education/Training Program
PROC: (CPT 23472; principal; 2022-11-09 10:20)
PROC: (CPT 64721; 2022-11-09 10:20)
DX: M19.011 Primary osteoarthritis, right shoulder (principal); G56.01 Carpal tunnel syndrome, right upper limb; Z79.899 Other long term (current) drug therapy; Z79.890 Hormone replacement therapy; F32.A Depression, unspecified; G47.33 Obstructive sleep apnea (adult) (pediatric); E66.9 Obesity, unspecified; M41.9 Scoliosis, unspecified; K21.9 Gastro-esophageal reflux disease without esophagitis; I10 Essential (primary) hypertension; Z86.14 Personal history of Methicillin resistant Staphylococcus aureus infection; E03.9 Hypothyroidism, unspecified
CPT/HCPCS: 23472; 64721; 01638; 64415; 36415; 73030; 80048; 82962; 85027; 88305; 88311; 96365; 96366; 97165; 99221; 99251; C1776; J7120; A4216; G0378; G0463; J2405; J3475

== ENCOUNTER 2022-12-20 13:00 | Outpatient (RCR) | payer MEDICARE, SELFPAY ==
--- NOTE | 2022-11-24 14:15 | HP.PTEVAL ---
Patient's Visit Information ALBERTINA WORKMAN is a 62 year old F referred to Physical Therapy by Dr. Nirav Whitney DO with a diagnosis of R rev TSA. Date of Evaluation: 11/24/22 Physical Therapist: Wilner Garnett, PT, ATC - Visit Plan Frequency: 1x/Week Duration: every 2 weeks Plan: Issue and instruct pt on HEP of phase 2 ex's in 2 weeks, and then phase 3 ex's in 4 weeks. - Subjective DOS: 11/09/22. Pt reports she had a reverse R TSA performed at that time. Pt reports she had chronic R shoulder pain prior to having this surgery. Pt reports she was very limited with all activities of daily living prior to having this surgery. Pt reports she is glad to have had the surgery at this time as her pain is better now than prior to surgery. Pt reports she still has difficulty with sleeping at this time secondary to pain. Pt reports she has to take pain meds and sleep in a recliner in order to sleep at night. Pt denies tingling or numbness in R UE at this time. Pt reports she had a carpal tunnel release performed when she had this surgery as well. 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 Pt notes she had R hip and B knee replacement in the past. 4/10 pain while sitting here at rest, 7/10 pain at worst. - Pain R shoulder Pain Intensity (Out of 10): 4 Pain Intensity Range: 7 - Objective Neuro: B UE sensation is WNL to light touch. B bicipital reflex= 2/3. Observation: Incision is healing well. No signs of infection. ROM: L shoulder flex= 170, abd= 170, IR= WNL, ER= 30; R shoulder flex= 80, abd= 70, IR= severely limited, ER= 20 degrees. MMT: L shoulder flex= 7, abd= 12, IR= 15, ER= 5 #F; R shoulder Not tested today - Balance/Special Test Scores Quick DASH Score: 75.0000 - Goals Goal 1:: Decrease R shoulder pain x 50% to aid with sleep Goal Time Frame: 4-6 Weeks Goal 2:: I with HEP Goal Time Frame: 4-6 Weeks - Rehabilitation Potential Physical Therapy Diagnosis: Pt has R shoulder pain, weakness, and limited ROM secondary to R TSA Rehabilitation Potential: Good - Anticipated Interventions Patient/Client Instruction: Educate patient on: Condition, Plan of Care For the Purpose of:: To improve self management Therapeutic Exercise to Include: Strength training, Endurance training, Passive ROM, Active ROM, Scapular Strength/Stabilization For the Purpose of:: To decrease pain, To increase ROM, To improve muscle performance and motor function Cryotherapy (ice pack, ice massage): Yes For the Purpose of:: To decrease pain Thank you for the opportunity to evaluate your patient. For Medicare and Medicare HMO plans, please review the plan of care and approve it. It will need to be FAXED BACK to us at [phone] for Medicare purposes. For Medicare only, by signing this I certify the plan of care. Please let me know if there are questions or concerns regarding this plan of care. Physician Signature: Date:
--- NOTE | 2023-05-03 12:52 | HP.PT.NRP ---
ALBERTINA WORKMAN was seen in my office for initial evaluation on 11/24/22. The following Plan of Care was established for this patient: Initial Frequency: 1x/Week Initial Duration: every 2 weeks Patient/Client Instruction: Educate patient on: Condition, Plan of Care For the Purpose of:: To improve self management Therapeutic Exercise to Include: Strength training, Endurance training, Passive ROM, Active ROM, Scapular Strength/Stabilization For the Purpose of:: To decrease pain, To increase ROM, To improve muscle performance and motor function Cryotherapy (ice pack, ice massage): Yes For the Purpose of:: To decrease pain This patient was last seen in our office . Pertinent comments regarding their Physical therapy will appear below: Pt was treated for 3 PT visits for R shoulder pain through the date of 12/20/22. Pt has not returned through todays date and is discontinued at this time. At this point I will be discontinuing this patient from physical therapy. I would be happy to see this patient again in the future if found appropriate by the physician. Thank you! Wilner Garnett, PT, ATC Balance/Gait/Functional tests - Balance/Special Test Scores Quick DASH Score: 75.0000
== END 2022-12-20 19:00 | disposition home or self-care (01) ==
LOC: PT 13:00
PROVIDERS: PCP Internal Medicine; Referring Provider Student in an Organized Health Care Education/Training Program; Visit Provider Student in an Organized Health Care Education/Training Program
DX: M19.011 Primary osteoarthritis, right shoulder (principal); Z47.1 Aftercare following joint replacement surgery; Z96.611 Presence of right artificial shoulder joint
CPT/HCPCS: 97110; 97161

== ENCOUNTER → 2023-03-07 | Outpatient (CLI) | payer MEDICARE, SELFPAY ==
--- NOTE | 2023-03-07 11:48 | BI_ITS ---
MAMMOGRAPHY - BILATERAL SCREENING REASON FOR EXAM: Female, 62 years old. Routine annual screening examination. PERTINENT HISTORY: Non-contributory. History of prior right stereotactic breast biopsy and bilateral breast reduction surgery. TECHNIQUE: Digital bilateral breast eli (3D mammographic acquisition) in the CC and MLO projections. 2-D mediolateral oblique (MLO) and craniocaudad (CC) views of both breasts were obtained. CAD: Full Field Digital Mammography with Computer Added Detection was performed. COMPARISON: Comparison is made with prior study dated March 06, 2022. FINDINGS: Breast Composition: The breasts are almost entirely fatty. There are no dominant masses or suspicious calcifications. Stable focal linear calcifications in the inferior deep portions of both breasts. Most likely postsurgical in nature. No other significant abnormalities are identified. There has been no significant change since the prior study. BI/SCRN MAMM (CAD)W/ELI BILAT IMPRESSION: Stable bilateral screening mammogram. Yearly follow-up mammogram recommended. (A) ASSESSMENT CATEGORY: BIRADS Category 2: Benign. A letter regarding these results will be sent to the patient by the facility within 30 days. Approximately 10% of breast cancers are not detected by mammography. A normal mammogram should not delay biopsy of a clinically suspicious abnormality. [id number] Electronically Signed: Moreno Camarillo MD at 12:53 EDT ,
== END | disposition home or self-care (01) ==
LOC: OPBI 11:46
PROVIDERS: PCP Internal Medicine; Referring Provider Internal Medicine; Visit Provider Internal Medicine
DX: Z12.31 Encounter for screening mammogram for malignant neoplasm of breast (principal)
CPT/HCPCS: 77063; 77067

== ENCOUNTER → 2023-03-09 | Outpatient (CLI) | payer MEDICARE, SELFPAY ==
[2023-03-09 10:13] LABS: Vitamin D,25 Hydroxy 74.4 ng/mL
[2023-03-09 10:18] LABS: ALB/GLOB Ratio 1.2 RATIO (0.9-2.4); AST(SGOT) 44 U/L (15-37); Alanine Aminotransfer ALT/SGPT 57 U/L (13-56); Albumin, Serum 3.6 g/dL (3.2-5.0); Alkaline Phosphatase 62 U/L (45-117); Anion Gap 3 (5-15); BUN 15 mg/dL (7-18); BUN/Creat Ratio 26.5 RATIO (10-20); Calcium,Total 9.4 mg/dL (8.5-10.1); Chloride 103 mmol/L (98-107); Cholesterol 153 mg/dL (200); Creatinine, Serum 0.56 mg/dL (0.55-1.02); EST Glomerular Filtration Rate 114 mL/min (>60); Est Glom Filt Rate - Afr Amer 138 mL/min (>60); Glucose 93 mg/dL (74-106); High Density Lipoprotein 76 mg/dL; Potassium 3.8 mmol/L (3.5-5.1); Protein, Total 6.6 g/dL (6.4-8.2); Sodium Level 137 mmol/L (136-145); T4 Free Direct 1.07 ng/dL (0.76-1.46); Thyroid Stim Hormone (TSH) 0.76 uIU/mL (0.358-3.74); Triglycerides 48 mg/dL; Very Low Density Lipoprotein 10 mg/dL (5-40)
== END | disposition home or self-care (01) ==
LOC: MTLAB 08:46
PROVIDERS: PCP Internal Medicine; Referring Provider Internal Medicine Endocrinology, Diabetes & Metabolism; Visit Provider Internal Medicine Endocrinology, Diabetes & Metabolism
DX: Z86.39 Personal history of other endocrine, nutritional and metabolic disease (principal); D35.2 Benign neoplasm of pituitary gland; Z98.84 Bariatric surgery status; E03.9 Hypothyroidism, unspecified; M81.0 Age-related osteoporosis without current pathological fracture
CPT/HCPCS: 36415; 80053; 80061; 82306; 84439; 84443

== ENCOUNTER → 2023-06-18 | Outpatient (CLI) | payer MEDICARE, SELFPAY | END | disposition home or self-care (01) | LOC: SL 20:09 | PROVIDERS: PCP Internal Medicine; Referring Provider Internal Medicine Critical Care Medicine; Visit Provider Internal Medicine Critical Care Medicine | DX: G47.33 Obstructive sleep apnea (adult) (pediatric) (principal) | CPT/HCPCS: 95811 ==

== ENCOUNTER 2023-11-30 13:53 | Emergency (ER) | payer MEDICARE, SELFPAY ==
[2023-11-30 13:53] VITALS: BP 129/79; PULSE 78; RESP 16; TEMP 36.2; O2SAT 98; BMI 28.1
--- NOTE | 2023-11-30 14:03 | CT_ITS ---
INDICATION: Closed head injury, headache, trouble with balance EXAMINATION: CT BRAIN - CT Head or Brain W/O Contrast Injection TECHNIQUE: Multiple axial images were obtained of the head without intravenous contrast. A radiation dose optimization technique was used for this scan. IV Contrast dosage and agent: None. RADIATION DOSAGE (If Supplied By Facility): CTDIvol = ( 44.99 ) mGy, DLP = ( 812.98 ) mGycm COMPARISON: No relevant prior comparison study available FINDINGS: BRAIN PARENCHYMA: No intra- or extra-axial hemorrhage. No evidence of acute infarct. No intracranial mass or mass effect. There is preservation of the kwon/white matter interface. Posterior fossa structures are unremarkable. CSF SPACES: Appropriate for age. No hydrocephalus. Basal cisterns are patent. CALVARIUM, SKULL BASE, PARANASAL SINUSES AND MASTOID AIR CELLS: Clear. No discrete lytic or blastic abnormalities. ORBITS: Both globes, extraocular muscles, optic nerves and retrobulbar fat appear unremarkable. CT/Brain/Head without Contrast IMPRESSION: No acute intracranial process. Electronically Signed: Higinio Mcdowell MD at 15:00 EST ,
--- NOTE | 2023-11-30 14:05 | EDS_ITS ---
HPI History of Present Illness Chief Complaint: Fall Detail of Chief Complaint: Closed head injury, scalp laceration, problems with balance Informant: patient and spouse/S.O. Onset/Context/Timing Onset: Yesterday (2199) Mechanism/Context: Blunt Injury and Fall Location of pain/injuries: - (Occiput and left shoulder) Quality of Pain: Aching and - Current Severity: Mild Worsened by: Worse with ambulation Relieved by: Nothing Associated Symptoms Associated Symptoms: Positive for Inability to ambulate (Difficulty ambulating); Negative for Parasthesias, Weakness, Loss of function, Loss of consciousness or Amnesia Narrative Narrative: Patient is a 63-year-old woman who had a mechanical fall last night he fell backward hitting her head on concrete. She and her states she was dazed. She has had a headache since that time. She has had trouble with her balance and coordination since the injury. There is a positional component. She is not on antithrombotic or anticoagulant. She denies double vision, blurred vision or loss of vision. Denies photophobia. She denies trouble sleeping. She denies ringing or ears. She denies neck pain. Does complain of left shoulder pain. She denies paresthesia, anesthesia or motor weakness in the right upper extremity or lower extremities. She complains of some numbness in her left hand. She denies cardiac or respiratory symptoms. Tetanus status is unknown. 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 Central hypothyroidism CPAP (continuous positive airway pressure) dependence Depression Depressive disorder Former smoker Gastric reflux Glucocorticoid deficiency History of edema History of hiatal hernia History of steroid therapy History of stress test Hypertension Iliotibial band tendonitis Macrocytosis MRSA infection Obesity TAD (obstructive sleep apnea) Osteoarthritis Paronychia Post-menopausal Scoliosis/kyphoscoliosis Sleep apnea Thyroid disease Wears glasses Wears partial dentures Home Medications biotin 5,000 mcg disintegrating tablet 10,000 mcg PO QDAY 12/19/17 [History Last Taken Unknown] calcitriol 0.25 mcg capsule 0.25 mcg PO QDAY OSTEOPOROSIS 12/19/17 [History Last Taken Unknown] calcium carbonate 500 mg calcium (1,250 mg) tablet 500 mg PO BID 12/19/17 [History Last Taken Unknown] ergocalciferol (vitamin D2) 1,250 mcg (50,000 unit) capsule 50,000 unit PO QWEEK 12/19/17 [History Last Taken Unknown] fludrocortisone 0.1 mg tablet 0.05 mg PO QODAY STEROID REPLACEMENT 12/19/17 [History Last Taken Unknown] fluoxetine 20 mg capsule (Prozac) 20 mg PO QDAY 12/19/17 [History Last Taken Unknown] levothyroxine 88 mcg tablet (Synthroid) 88 mcg PO DAILY 12/19/17 [History Last Taken 11/09/22] mecobalamin (vitamin B12) 1,000 mcg disintegrating tablet,sublingual 1,000 mcg sublingual QWEEK 12/19/17 [History Last Taken Unknown] omeprazole 20 mg capsule,delayed release 40 mg PO ONCE 12/19/17 [History Last Taken 11/09/22] pediatric multivitamin no.76 (Gummy Dinos chewable tablet) 1 tab PO QDAY 12/19/17 [History Last Taken Unknown] prednisone 2 mg tablet,delayed release 4 mg PO QHS 12/19/17 [History Last Taken Unknown] triamterene 37.5 mg-hydrochlorothiazide 25 mg capsule (Dyazide) 1 cap PO QAM 12/19/17 [History Last Taken Unknown] potassium chloride 20 mEq oral packet 40 meq PO DAILY 06/01/20 [History Last Taken Unknown] hydrocodone-acetaminophen 5-325mg 5mg-325mg 1 tab PO Q4H PRN PRN Pain Score 1-10 7 days #42 tabs 11/10/22 [Rx Last Taken Unknown] diazepam 2 mg tablet (Valium) 2 mg PO TID PRN verigo 7 days #20 tabs 11/30/23 [Rx Last Taken Unknown] Allergy/AdvReac Type Severity Reaction Status Date / Time adhesive tape Allergy Severe NEEDS Verified 11/30/23 13:53 FOLLOW-UP Seasonal Allergies: Uncoded Allergy Severe NEEDS Verified 11/30/23 13:53 FOLLOW-UP Family History Mother Cancer cervical Father Cancer Brother Cancer Surgical History H/O discectomy hammer toe surgery History of abdominoplasty History of breast mammoplasty History of bunionectomy of both great toes History of cataract surgery History of gastric bypass History of total left hip arthroplasty History of total left knee replacement (TKR) History of total right hip replacement Hx of toe surgery 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 Social History Smoking Status: Former smoker Tobacco: How many years used: 10 Electronic Cigarette Use: not used how long ago did patient quit smokin, 0.5p/day second hand exposure: Yes alcohol intake: current substance use type: does not use ROS ROS ED Constitutional Constitutional ED: Denies chills, fever(s), subjective, sweats or weight loss Eyes Eyes: Denies blurry vision or change in vision ENT ENT ED: Reports other Details: Denies tenderness ; Denies ear pain, rhinorrhea or sore throat Cardiovascular Cardiovascular: Denies chest pain or palpitations Respiratory/Chest Respiratory/Chest: Denies cough or dyspnea Gastrointestinal Gastrointestinal: Reports nausea; Denies diarrhea or vomiting Genitourinary Genitourinary ED: Denies hematuria Musculoskeletal Musculoskeletal: Denies arthralgias, back pain, myalgias or neck pain Integumentary Reports other Details: Scalp laceration ; Denies abscess, Abrasions or rash Neurologic Neurologic: Reports headache(s); Denies paresthesias or weakness Hematologic/Lymphatic Hematologic/Lymphatic: Denies easy bleeding or easy bruising EXAM Physical Exam Const Vital Signs: 11/30/23 13:53 11/30/23 13:53 Temperature 97.2 F L Temperature Source Temporal Pulse Rate 78 Respiratory Rate 16 Respiratory Effort Normal Respiratory Depth Normal Respiratory Pattern Normal Blood Pressure 129/79 H Blood Pressure Mean 95 Pulse Ox 98 Oxygen Delivery Method Room Air Room Air Positive well nourished and well developed; Negative for obese, cachectic, contractures or unkempt General Appearance ED: well developed and NAD; Negative for unkempt, cachectic or contractures Nutritional Appearance: Negative for cachectic or obese HEENT Reports TM's clear HEENT Narrative: There is a laceration of the left occipital area that is approximately 3 cm in length. There is a gap. There is crusting of the cyst tissue noted. There is no purulent drainage. There is no palpable depression. There is tenderness but caution/palpation. trauma and tenderness Nose: Negative for septum abnormal Tympanic Membrane ED: Yes TM's clear bilateral (Scarring bilateral due to multiple ear infections as a child.) Eyes PERRL and EOMs intact bilaterally Neck full ROM Neck Narrative: No midline posterior neck pain. General: Negative for tenderness or other Chest Wall inspection of chest normal and palpation of chest normal Resp normal respiratory effort Cardio regular rhythm Rhythm: abnormal rhythm Extremity normal to inspection and full ROM Extremity Narrative: There is pain outpatient over the bicep. There is no pain ovation of the clavicle or AC joint. Is no pain the patient with the proximal humerus. There is no pain ovation of the lateral medial epicondyle, radial head with supination pronation or olecranon process. There is no pain ovation of the distal radius or ulna. No pain ovation over the carpal bones, metacarpal bones or phalanges. Axillary, median, radial and ulnar function intact. General Extremety ED: Negative for deformity General Extremity: Negative for deformity Neuro oriented x3, CN's II-XII intact bilaterally, moves all extremities, no focal motor deficits and no sensory deficits noted [place] Coma Scale: document GCS findings Spontaneous Obeys Commands Oriented 15 Sensorium / Orientation: alert Psych mental status grossly normal and thought process normal Appearance: Negative for unkempt Skin no rashes or lesions noted, No no wounds, skin turgor normal and no jaundice Skin Narrative: Scalp laceration as previously described. MDM MDM MDM Narrative Medical decision making narrative: Per the [place] CT head rule imaging of the head is required to evaluate for intracranial bleed i.e. subdural hematoma, epidural hematoma, intraparenchymal contusion or traumatic subarachnoid hemorrhage. Patient's laceration is approximately 16 hours old. At this point would not be advisable to close. Will have nurse clean and tetanus was updated. X-ray of the C-spine was not obtained since cleared per Nexus criteria. And based on examination of the left upper extremity imaging of the shoulder is not indicated either. Radiography Diagnostic Testing: Clinical Impression(s) from Imaging Studies Brain CT 11/30/23 14:03 IMPRESSION: No acute intracranial process. Electronically Signed: Higinio Mcdowell MD at 15:00 EST , Unenhanced CT of the head was reviewed by me. Agree there is no intracranial pathology. Patient was made aware of laboratory tests. Discharge Plan Triage Chief Complaint: Fall ED Provider: Berry Mott Dx/Rx/DC Orders Clinical Impression: Posttraumatic vertigo, Concussion with loss of consciousness of unspecified duration, initial encounter, Laceration of scalp Instructions: ED Head Injury (Adult), ED Laceration, Old: Not Sutured Prescriptions: New diazepam [Valium] 2 mg tablet 2 mg PO TID PRN (Reason: verigo) 7 Days Qty: 20 0RF No Action fluoxetine [Prozac] 20 mg capsule 20 mg PO QDAY triamterene-hydrochlorothiazid [Dyazide] 37.5-25 mg capsule 1 cap PO QAM prednisone 2 mg tablet,delayed release 2 mg tablet,delayed release (DR/EC) 4 mg PO QHS Patient Comments: take 2 tabs levothyroxine [Synthroid] 88 mcg tablet 88 mcg PO DAILY omeprazole 20 mg capsule,delayed release(DR/EC) 40 mg PO ONCE biotin 5,000 mcg tablet,disintegrating 10,000 mcg PO QDAY fludrocortisone 0.1 mg tablet 0.05 mg PO QODAY ergocalciferol (vitamin D2) 50,000 unit capsule 50,000 unit PO QWEEK calcitriol 0.25 mcg capsule 0.25 mcg PO QDAY mecobalamin (vitamin B12) 1,000 mcg tablet,disintegrating 1,000 mcg SUBLINGUAL QWEEK pediatric multivitamin no.76 [Gummy Dinos] tablet,chewable 1 tab PO QDAY calcium carbonate 500 mg calcium (1,250 mg) tablet 500 mg PO BID potassium chloride 20 mEq packet 40 meq PO DAILY hydrocodone-acetaminophen 5-325 mg Tablet 1 tab PO Q4H PRN PRN (Reason: Pain Score 1-10) 7 Days Qty: 42 0RF Primary Care Provider: Kelli Senior Referrals: Kelli Senior, [Primary Care Provider] - 10-14 Days if not better Disposition Disposition: Home, Self Care
[2023-11-30] MEDS: Diphth,Pertuss(Acell),Tet Vac 0.5 ML Vial IM (14:53)
[2023-11-30 15:26] VITALS: BP 111/72; PULSE 16; RESP 14; TEMP 36.4; O2SAT 99
== END 2023-11-30 15:30 | disposition home or self-care (01) ==
PROVIDERS: Emergency Provider Emergency Medicine; PCP Internal Medicine; Visit Provider Emergency Medicine
DX: R42 Dizziness and giddiness (principal); S01.01XA Laceration without foreign body of scalp, initial encounter; Z87.891 Personal history of nicotine dependence; S06.0X9A Concussion with loss of consciousness of unspecified duration, initial encounter; W18.39XA Other fall on same level, initial encounter; I10 Essential (primary) hypertension; F32.A Depression, unspecified; Z79.899 Other long term (current) drug therapy; K21.9 Gastro-esophageal reflux disease without esophagitis; Z23 Encounter for immunization; Z96.643 Presence of artificial hip joint, bilateral
CPT/HCPCS: 70450; 90471; 90715; 99283

== ENCOUNTER 2023-12-15 18:21 | Emergency (ER) | payer MEDICARE, SELFPAY ==
[2023-12-15 18:22] VITALS: BP 159/75; PULSE 92; RESP 16; TEMP 36.6; O2SAT 97; BMI 28.3
--- NOTE | 2023-12-15 18:43 | CT_ITS ---
STUDY: CT BRAIN WITHOUT CONTRAST REASON FOR EXAM: Female, 63 years old. head injury RADIATION DOSAGE (If Supplied By Facility): CTDIvol = ( 44.99 ) mGy, DLP = ( 812.98 ) mGycm TECHNIQUE: Transaxial CT imaging of the brain was performed without administration of intravenous contrast material. Individualized dose optimization techniques were used for this CT. COMPARISON: 11/30/2023 FINDINGS: Normal soft tissue structures. Normal calvarium. Normal size ventricles and extra-axial spaces for the patient''s age. Normal white matter tracts of the cerebral hemispheres. Normal basal ganglia and thalami. Normal brainstem. Normal cerebellum. There is no intracranial hemorrhage. There are no findings of an acute ischemic infarction. Normal visualized paranasal sinuses. CT/Brain/Head without Contrast IMPRESSION: Normal unenhanced CT scan of the brain. Electronically Signed: Olegario Biggs MD at 19:49 EST ,
[2023-12-15] MEDS: Lidocaine 1% /Epi 1:100 (20ml) 20 ML Vial 10 ML INFILT (19:08)
--- NOTE | 2023-12-15 19:14 | EDS_ITS ---
HPI <SHELDON Parisi - Last Filed: 12/15/23 21:05> History of Present Illness Chief Complaint: Laceration Narrative Narrative: Patient presenting today due to a head injury that occurred this evening. She reports a laceration to her left forehead. She reports that she was cleaning her bathroom when she tripped and hit her forehead against the edge of the bathtub. She did not lose consciousness, she is not on any blood thinners, she denies neck pain, nausea, and vomiting. She reports head pain. She denies any other injury. Tetanus is up-to-date. 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 Central hypothyroidism CPAP (continuous positive airway pressure) dependence Depression Depressive disorder Former smoker Gastric reflux Glucocorticoid deficiency History of edema History of hiatal hernia History of steroid therapy History of stress test Hypertension Iliotibial band tendonitis Macrocytosis MRSA infection Obesity TAD (obstructive sleep apnea) Osteoarthritis Paronychia Post-menopausal Scoliosis/kyphoscoliosis Sleep apnea Thyroid disease Wears glasses Wears partial dentures Home Medications biotin 5,000 mcg disintegrating tablet 10,000 mcg PO QDAY 12/19/17 [History Last Taken Unknown] calcitriol 0.25 mcg capsule 0.25 mcg PO QDAY OSTEOPOROSIS 12/19/17 [History Last Taken Unknown] calcium carbonate 500 mg calcium (1,250 mg) tablet 500 mg PO BID 12/19/17 [History Last Taken Unknown] ergocalciferol (vitamin D2) 1,250 mcg (50,000 unit) capsule 50,000 unit PO QWEEK 12/19/17 [History Last Taken Unknown] fludrocortisone 0.1 mg tablet 0.05 mg PO QODAY STEROID REPLACEMENT 12/19/17 [History Last Taken Unknown] fluoxetine 20 mg capsule (Prozac) 20 mg PO QDAY 12/19/17 [History Last Taken Unknown] levothyroxine 88 mcg tablet (Synthroid) 88 mcg PO DAILY 12/19/17 [History Last Taken 11/09/22] mecobalamin (vitamin B12) 1,000 mcg disintegrating tablet,sublingual 1,000 mcg sublingual QWEEK 12/19/17 [History Last Taken Unknown] omeprazole 20 mg capsule,delayed release 40 mg PO ONCE 12/19/17 [History Last Taken 11/09/22] pediatric multivitamin no.76 (Gummy Dinos chewable tablet) 1 tab PO QDAY 12/19/17 [History Last Taken Unknown] prednisone 2 mg tablet,delayed release 4 mg PO QHS 12/19/17 [History Last Taken Unknown] triamterene 37.5 mg-hydrochlorothiazide 25 mg capsule (Dyazide) 1 cap PO QAM 12/19/17 [History Last Taken Unknown] potassium chloride 20 mEq oral packet 40 meq PO DAILY 06/01/20 [History Last Taken Unknown] hydrocodone-acetaminophen 5-325mg 5mg-325mg 1 tab PO Q4H PRN PRN Pain Score 1-10 7 days #42 tabs 11/10/22 [Rx Last Taken Unknown] diazepam 2 mg tablet (Valium) 2 mg PO TID PRN verigo 7 days #20 tabs 11/30/23 [Rx Last Taken Unknown] Allergy/AdvReac Type Severity Reaction Status Date / Time adhesive tape Allergy Severe NEEDS Verified 11/30/23 13:53 FOLLOW-UP Seasonal Allergies: Uncoded Allergy Severe NEEDS Verified 11/30/23 13:53 FOLLOW-UP Family History Mother Cancer cervical Father Cancer Brother Cancer Surgical History H/O discectomy hammer toe surgery History of abdominoplasty History of breast mammoplasty History of bunionectomy of both great toes History of cataract surgery History of gastric bypass History of total left hip arthroplasty History of total left knee replacement (TKR) History of total right hip replacement Hx of toe surgery 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 Social History Smoking Status: Former smoker Tobacco: How many years used: 10 Electronic Cigarette Use: not used how long ago did patient quit smokin, 0.5p/day second hand exposure: Yes alcohol intake: current substance use type: does not use ROS <SHELDON Parisi - Last Filed: 12/15/23 21:05> ROS ED Constitutional Constitutional ED: Denies chills or fever(s) Eyes Eyes: Denies change in vision Cardiovascular Cardiovascular: Denies chest pain Respiratory/Chest Respiratory/Chest: Denies cough or dyspnea Gastrointestinal Gastrointestinal: Denies abdominal pain, nausea or vomiting Musculoskeletal Musculoskeletal: Denies arthralgias, back pain or neck pain Integumentary Reports laceration Neurologic Neurologic: Reports headache(s); Denies dizziness EXAM <SHELDON Parisi - Last Filed: 12/15/23 21:05> Physical Exam Const Vital Signs: 12/15/23 18:22 12/15/23 20:01 Temperature 98 F 98 F Temperature Source Temporal Pulse Rate 92 78 Respiratory Rate 16 16 Blood Pressure 159/75 H 135/67 H Blood Pressure Mean 103 89 Pulse Ox 97 99 Oxygen Delivery Method Room Air Positive well nourished, well developed and no apparent distress General Appearance ED: well developed HEENT Reports normocephalic and head/scalp atraumatic HEENT Narrative: 2 cm linear full-thickness laceration to the left forehead. Mouth ED: Yes moist mucous membranes normal Eyes PERRL and EOMs intact bilaterally Neck full ROM and supple Chest Wall inspection of chest normal Resp normal respiratory effort and clear to auscultation bilaterally Cardio regular rate and regular rhythm GI soft to palpation, non-tender, non-distended and no masses Back/Spine normal ROM and normal to inspection Extremity normal to inspection and full ROM Neuro oriented x3, CN's II-XII intact bilaterally, moves all extremities, no focal motor deficits and no sensory deficits noted Sensorium / Orientation: awake and alert Psych mental status grossly normal and thought process normal <Dr. Chandrakant Chavez MD - Last Filed: 12/15/23 23:41> Physical Exam Const Vital Signs: 12/15/23 18:22 12/15/23 20:01 Temperature 98 F 98 F Temperature Source Temporal Pulse Rate 92 78 Respiratory Rate 16 16 Blood Pressure 159/75 H 135/67 H Blood Pressure Mean 103 89 Pulse Ox 97 99 Oxygen Delivery Method Room Air PROC <SHELDON Parisi - Last Filed: 12/15/23 21:05> Procedures Lacerations laceration: Length: 2 cm Depth: Sub Q Shape: Linear Prep: Chlorhexadine Laceration repair: Irrigated, Lidocaine with epi and Skin sutures Number of Sutures/Uche: 4 Suture Information: Ethilon, Simple and 6-0 [facility] <SHELDON Parisi - Last Filed: 12/15/23 21:05> [facility] Narrative Medical decision making narrative: Patient presenting with a left forehead laceration after head injury that occurred this evening. Head CT will be obtained to rule out intracranial bleed. Patient does not have any neck pain or midline cervical tenderness, according to Nexus criteria, imaging of the neck is not indicated. Tetanus is up-to-date. Laceration will be cleaned and repaired. Head CT is negative. Patient tolerated procedure well, laceration was bandaged with bacitracin ointment. She has been instructed to have these removed in 5 days and wound care instructions discussed. Return instructions have been given and she will be discharged home in stable condition. Radiography Diagnostic Testing: Clinical Impression(s) from Imaging Studies Brain CT 12/15/23 18:43 IMPRESSION: Normal unenhanced CT scan of the brain. Electronically Signed: Olegario Biggs MD at 19:49 EST , <Dr. Chandrakant Chavez MD - Last Filed: 12/15/23 23:41> [facility] Radiography Diagnostic Testing: Clinical Impression(s) from Imaging Studies Brain CT 12/15/23 18:43 IMPRESSION: Normal unenhanced CT scan of the brain. Electronically Signed: Olegario Biggs MD at 19:49 EST , Treatment and Re-Evaluation Narrative: I have personally performed a face to face assessment of the patient and have reviewed the ELIF Note. I performed a substantive portion of the visit including all aspects of the following. My nunez findings include: History is patient had an accidental stumble and fall into a piece of furniture versus her left temporal scalp. She has a headache, no loss consciousness no vomiting, no focal neurologic symptoms or loss of vision. Exam is 2 cm full-thickness linear clean appearing laceration to the left temporal forehead/scalp, there is no crepitance or depression. Normal neurologic exam no other facial tenderness. Medical Decison Making given [address] to rule out intracranial injury. I reviewed the images and the report which I agree with, it is negative. Laceration repaired, given appropriate discharge instructions for care and removal. Other additions or changes: [None] Discharge Plan Triage Chief Complaint: Laceration ED Midlevel Provider: Jen Dasilva ED Provider: Chandrakant Chavez Dx/Rx/DC Orders Clinical Impression: Laceration of face, Head injury, Fall Instructions: ED Head Injury (Adult), ED Laceration, All Closures Prescriptions: No Action fluoxetine [Prozac] 20 mg capsule 20 mg PO QDAY triamterene-hydrochlorothiazid [Dyazide] 37.5-25 mg capsule 1 cap PO QAM prednisone 2 mg tablet,delayed release 2 mg tablet,delayed release (DR/EC) 4 mg PO QHS Patient Comments: take 2 tabs levothyroxine [Synthroid] 88 mcg tablet 88 mcg PO DAILY omeprazole 20 mg capsule,delayed release(DR/EC) 40 mg PO ONCE biotin 5,000 mcg tablet,disintegrating 10,000 mcg PO QDAY fludrocortisone 0.1 mg tablet 0.05 mg PO QODAY ergocalciferol (vitamin D2) 50,000 unit capsule 50,000 unit PO QWEEK calcitriol 0.25 mcg capsule 0.25 mcg PO QDAY mecobalamin (vitamin B12) 1,000 mcg tablet,disintegrating 1,000 mcg SUBLINGUAL QWEEK pediatric multivitamin no.76 [Gummy Dinos] tablet,chewable 1 tab PO QDAY calcium carbonate 500 mg calcium (1,250 mg) tablet 500 mg PO BID potassium chloride 20 mEq packet 40 meq PO DAILY hydrocodone-acetaminophen 5-325 mg Tablet 1 tab PO Q4H PRN PRN (Reason: Pain Score 1-10) 7 Days Qty: 42 0RF diazepam [Valium] 2 mg tablet 2 mg PO TID PRN (Reason: verigo) 7 Days Qty: 20 0RF Primary Care Provider: Kelli Senior Referrals: Kelli Senior DO [Primary Care Provider] - 5 Days for suture removal Activity Restrictions/Additional Instructions: Have sutures removed in 5 days. Return for any worsening of your symptoms. Disposition Disposition: Home, Self Care Discharge Date/Time: 12/15/23 20:05
[2023-12-15 20:01] VITALS: BP 135/67; PULSE 78; RESP 16; TEMP 36.6; O2SAT 99
== END 2023-12-15 20:05 | disposition home or self-care (01) ==
PROVIDERS: Emergency Provider Emergency Medicine; PCP Internal Medicine; Visit Provider Emergency Medicine
DX: S01.81XA Laceration without foreign body of other part of head, initial encounter (principal); S06.9XAA Unspecified intracranial injury with loss of consciousness status unknown, initial encounter; Z87.891 Personal history of nicotine dependence; W18.49XA Other slipping, tripping and stumbling without falling, initial encounter; Y93.89 Activity, other specified; Y92.89 Other specified places as the place of occurrence of the external cause; I10 Essential (primary) hypertension; F32.A Depression, unspecified; E07.9 Disorder of thyroid, unspecified; K21.9 Gastro-esophageal reflux disease without esophagitis; Z79.899 Other long term (current) drug therapy; Z96.642 Presence of left artificial hip joint; Z96.652 Presence of left artificial knee joint
CPT/HCPCS: 12001; 70450; 99283

== ENCOUNTER → 2024-01-11 | Outpatient (CLI) | payer MEDICARE, SELFPAY | END | disposition home or self-care (01) | LOC: SL 13:33 | PROVIDERS: PCP Internal Medicine; Referring Provider Nurse Practitioner Acute Care; Visit Provider Nurse Practitioner Acute Care | DX: G47.33 Obstructive sleep apnea (adult) (pediatric) (principal) ==

== ENCOUNTER → 2024-03-11 | Outpatient (CLI) | payer MEDICARE, SELFPAY ==
[2024-03-11 12:57] LABS: Vitamin D,25 Hydroxy 49.6 ng/mL
[2024-03-11 13:42] LABS: ALB/GLOB Ratio 1.1 RATIO (0.9-2.4); AST(SGOT) 40 U/L (15-37); Alanine Aminotransfer ALT/SGPT 45 U/L (13-56); Albumin, Serum 3.5 g/dL (3.2-5.0); Alkaline Phosphatase 54 U/L (45-117); Anion Gap 7 (5-15); BUN 12 mg/dL (7-18); BUN/Creat Ratio 20.1 RATIO (10-20); Calcium,Total 8.9 mg/dL (8.5-10.1); Chloride 104 mmol/L (98-107); EST Glomerular Filtration Rate 107 mL/min (>60); Est Glom Filt Rate - Afr Amer 130 mL/min (>60); Free T3 2.7 pg/mL (2.18-3.98); Globulin 3.2 g/dL (2.2-4.2); Glucose 93 mg/dL (74-106); Potassium 3.7 mmol/L (3.5-5.1); Protein, Total 6.7 g/dL (6.4-8.2); Sodium Level 137 mmol/L (136-145); T4 Free Direct 1.15 ng/dL (0.76-1.46); Thyroid Stim Hormone (TSH) 0.71 uIU/mL (0.358-3.74)
== END | disposition home or self-care (01) ==
LOC: MTLAB 10:31
PROVIDERS: PCP Internal Medicine; Referring Provider Internal Medicine Endocrinology, Diabetes & Metabolism; Visit Provider Internal Medicine Endocrinology, Diabetes & Metabolism
DX: D35.2 Benign neoplasm of pituitary gland (principal); M81.0 Age-related osteoporosis without current pathological fracture; E03.9 Hypothyroidism, unspecified; Z86.39 Personal history of other endocrine, nutritional and metabolic disease; Z98.84 Bariatric surgery status
CPT/HCPCS: 36415; 80053; 82024; 82306; 82533; 84439; 84443; 84481

== ENCOUNTER → 2024-03-20 | Outpatient (CLI) | payer MEDICARE, SELFPAY ==
--- NOTE | 2024-03-20 13:25 | BI_ITS ---
MAMMOGRAPHY - BILATERAL SCREENING REASON FOR EXAM: Female, 63 years old. Routine annual screening examination. PERTINENT HISTORY: Non-contributory. History of prior bilateral breast reduction surgery and right stereotactic breast biopsy. TECHNIQUE: Digital bilateral breast eli (3D mammographic acquisition) in the CC and MLO projections. 2-D mediolateral oblique (MLO) and craniocaudad (CC) views of both breasts were obtained. CAD: Full Field Digital Mammography with Computer Added Detection was performed. COMPARISON: Comparison is made with prior study March 07, 2023 and March 06, 2022. FINDINGS: Breast Composition: The breasts are almost entirely fatty. There are no dominant masses or suspicious calcifications. Stable focal linear calcifications in the inferior deep portions of both breasts. No other significant abnormalities are identified. There has been no significant change since the prior study. BI/SCRN MAMM (CAD)W/ELI BILAT IMPRESSION: Stable bilateral screening mammogram. Yearly follow-up mammogram recommended. (A) ASSESSMENT CATEGORY: BIRADS Category 2: Benign. A letter regarding these results will be sent to the patient by the facility within 30 days. Approximately 10% of breast cancers are not detected by mammography. A normal mammogram should not delay biopsy of a clinically suspicious abnormality. [id number] Electronically Signed: Moreno Camarillo MD at 14:56 EDT ,
--- NOTE | 2024-03-20 13:29 | BD_ITS ---
STUDY: DUAL ENERGY X-RAY ABSORPTIOMETRY / DXA REASON FOR EXAM: Female, 63 years old. V76.12ScreeningBONE DENSITY REASON FOR EXAM TECHNIQUE: Bone Mineral Density (BMD) measurements of lumbar spine and bilateral hips were obtained. COMPARISON: Comparison is made with prior study dated March 14, 2022. FINDINGS: Lumbar Spine (L1-L4): g/cm2 (1) / T-score ( ) / Z-score ( ) Findings are suggestive of with a fracture risk. Left Femur Total: g/cm2 ( ) / T-score ( ) / Z-score ( ) Left Femoral Neck: g/cm2 ( ) / T-score ( ) / Z-score ( ) Right Femur Total: g/cm2 ( ) / T-score ( ) / Z-score ( ) Right Femoral Neck: g/cm2 ( ) / T-score ( ) / Z-score ( ) Right Forearm: g/cm2 ( ) / T-score ( ) / Z-score ( ) Left Forearm: g/cm2 ( ) / T-score ( ) / Z-score ( ) The T-Scores on the most recent prior examination were: Lumbar Spine (L1-L4): There has been of bone density since the previous examination. Left Femur Total: . Right Femur Total: . BD/Dexa Bone Density Study IMPRESSION: The patient is considered as outlined below according to World Jose Organization (WHO) criteria with a fracture risk. There has been of bone density since the previous examination. Reference Information: The T-score is the number of standard deviations above or below the standard which is normal for young adults at their peak bone mineral density. The World Health Organization (WHO) interprets the T-scores as follows: Above -1 Normal bone density Between -1 and -2.5 Osteopenia Equal to / or below -2.5 Osteoporosis As a practical clinical guideline, osteopenia may be graded as follows: Mild -1 through -1.5 Moderate -1.6 through -2.0 Severe -2.1 through -2.4 The Z-score is the number of standard deviations above or below age-matched controls. A Z-score of less than -1.5 would be considered abnormal. References: 1. NIH Osteoporosis and Related Bone Diseases www osteo.org 2. International Society for Clinical Densitometry www iscd.org 3. National Osteoporosis Foundation www nof.org Electronically Signed: Moreno Camarillo MD at 15:14 EDT ,
== END | disposition home or self-care (01) ==
LOC: OPBD 13:24
PROVIDERS: PCP Internal Medicine; Referring Provider Internal Medicine; Visit Provider Internal Medicine
DX: Z12.31 Encounter for screening mammogram for malignant neoplasm of breast (principal); Z78.0 Asymptomatic menopausal state
CPT/HCPCS: 77063; 77067; 77080

== ENCOUNTER → 2024-04-10 | Outpatient (CLI) | payer MEDICARE, SELFPAY | END | disposition home or self-care (01) | LOC: MTLAB 13:44 | PROVIDERS: PCP Internal Medicine; Referring Provider Internal Medicine Endocrinology, Diabetes & Metabolism; Visit Provider Internal Medicine Endocrinology, Diabetes & Metabolism | DX: Z86.39 Personal history of other endocrine, nutritional and metabolic disease (principal); D35.2 Benign neoplasm of pituitary gland; Z98.84 Bariatric surgery status; M81.0 Age-related osteoporosis without current pathological fracture; E03.9 Hypothyroidism, unspecified | CPT/HCPCS: 36415; 82533 ==

== ENCOUNTER → 2024-05-14 | Outpatient (CLI) | payer MEDICARE, SELFPAY ==
--- NOTE | 2024-05-14 15:44 | CT_ITS ---
STUDY: CT BRAIN WITHOUT CONTRAST REASON FOR EXAM: Female, 63 years old. TIA RADIATION DOSAGE (If Supplied By Facility): CTDIvol = ( 44.99 ) mGy, DLP = ( 796.11 ) mGycm TECHNIQUE: Transaxial CT imaging of the brain was performed without administration of intravenous contrast material. Individualized dose optimization techniques were used for this CT. COMPARISON: 12/15/2023 FINDINGS: Normal soft tissue structures. Normal calvarium. There is mild cerebral atrophy with widening of the extra-axial spaces and ventricular dilatation. There are areas of decreased attenuation within the white matter tracts of the supratentorial brain, consistent with microvascular disease changes. There are small punctate calcifications of the basal ganglia which are seen in the aging brain as a normal variant. Normal brainstem. Normal cerebellum. There is no intracranial hemorrhage. There are no findings of an acute ischemic infarction. Normal visualized paranasal sinuses. CT/Brain/Head without Contrast IMPRESSION: Chronic involutional changes of the brain. Electronically Signed: Olegario Biggs MD at 16:33 EDT ,
== END | disposition home or self-care (01) ==
LOC: CT 15:42
PROVIDERS: PCP Internal Medicine; Referring Provider Internal Medicine; Visit Provider Internal Medicine
DX: G45.9 Transient cerebral ischemic attack, unspecified (principal)
CPT/HCPCS: 70450

== ENCOUNTER → 2024-05-21 | Outpatient (CLI) | payer MEDICARE, SELFPAY ==
--- NOTE | 2024-05-21 13:32 | ECHOD_ITS ---
Reason For Study: TIA Procedure This was a 2D Doppler, Color Flow transthoracic echocardiogram. Exam performed in department. Left Ventricle Normal LV size. Left ventricular systolic function is normal. The left ventricular ejection fraction is 60 %. No regional wall motion abnormalities noted. Right Ventricle Normal RV size. Normal systolic function. Atria Normal left atrium. Normal right atrium. Cannot rule out tiny PFO. Mitral Valve There is moderate mitral annular calcification. Mild (1+) eccentric mitral valve insufficiency. Tricuspid Valve Normal tricuspid valve. Mild tricuspid valve insufficiency. Aortic Valve Normal aortic valve. Pulmonic Valve Normal pulmonic valve. Great Vessels Normal aortic root. The pulmonary artery is normal size. Normal inferior vena cava. Pericardium/Pleural No pericardial effusion. Medication 22 gauge I.V. with prn adaptor inserted into right arm. Performed a rapid injection of agitated mix of 9 cc saline and 1cc air to assess for atrial septal defect. MMode/2D Measurements & Calculations LVIDd: 3.9 cm IVSd: 0.79 cm Ao root diam: 3.1 cm LVIDs: 2.7 cm LVPWd: 0.73 cm FS: 30.9 % LAV(MOD-bp): 27.3 ml LVAd ap4: 17.7 cm2 SV(MOD-sp4): 24.4 ml LAV(MOD-bp) Indexed: 15.9 ml/m2 LVLd ap4: 6.7 cm LAV(MOD-sp2): 23.7 ml EDV(MOD-sp4): 39.1 ml LAV(MOD-sp4): 27.9 ml EDV(sp4-el): 39.6 ml LVAs ap4: 9.2 cm2 LVLs ap4: 5.2 cm ESV(MOD-sp4): 14.6 ml ESV(sp4-el): 13.7 ml EF(MOD-sp4): 62.5 % EF(sp4-el): 65.4 % SV(sp4-el): 25.9 ml LA A4 area: 13.0 cm2 LA dimension(2D): 3.0 cm RA A4 area: 10.2 cm2 TAPSE: 1.8 cm Time Measurements MV dec time: 0.21 sec Doppler Measurements & Calculations MV E max ruddy: 50.8 cm/sec Lat Peak E' Ruddy: 7.3 cm/sec Med Peak E' Ruddy: 5.5 cm/sec MV A max ruddy: 70.4 cm/sec E/E' lat: 6.9 E/E' med: 9.3 MV E/A: 0.72 MV dec slope: 243.1 cm/sec2 Ao V2 max: 116.3 cm/sec LV V1 max: 105.0 cm/sec Ao max P.4 mmHg LV V1 max P.4 mmHg Ao V2 mean: 78.3 cm/sec LV V1 mean P.5 mmHg Ao mean P.8 mmHg LV V1 mean: 73.8 cm/sec Ao V2 VTI: 22.5 cm LV V1 VTI: 22.9 cm AV (velocity ratio): 1.0 PA V2 max: 76.0 cm/sec TR max ruddy: 241.8 cm/sec TR max P.4 mmHg ECHO/Echo Complete Interpretation Summary Normal LV size. Left ventricular systolic function is normal. The left ventricular ejection fraction is 60 %. Cannot rule out tiny PFO. Mild (1+) eccentric mitral valve insufficiency. Mild tricuspid valve insufficiency. Ordering Physician: Kelli Senior Referring Physician: Kelli Senior Performed By: Meli Baer RDCS
== END | disposition home or self-care (01) ==
PROVIDERS: PCP Internal Medicine; Referring Provider Internal Medicine; Visit Provider Internal Medicine
DX: G45.9 Transient cerebral ischemic attack, unspecified (principal)
CPT/HCPCS: 93306

== ENCOUNTER → 2024-06-05 | Outpatient (CLI) | payer MEDICARE, SELFPAY | END | disposition home or self-care (01) | LOC: SL 11:20 | PROVIDERS: PCP Internal Medicine; Visit Provider Nurse Practitioner Acute Care | DX: Z00.00 Encounter for general adult medical examination without abnormal findings (principal) ==

== ENCOUNTER → 2024-07-16 | Outpatient (CLI) | payer MEDICARE, SELFPAY ==
--- NOTE | 2024-07-16 13:16 | NEURO ---
NCS and/or EMG Patient Report Ordering Doctor: Nirav Whitney DATE OF SERVICE: 07/16/24 Elieen presents for electrodiagnostic testing of the left upper limb. She reports numbness and tingling in the left hand. Electrodiagnostic findings: Left median motor nerve demonstrates normal distal latency and amplitude with reduced conduction velocity. Left ulnar motor responses within normal limits. Normal median ulnar F?waves. Prolonged left median sensory latency at the wrist. Needle EMG testing was performed left upper limb all muscles tested showed no evidence of denervation with normal motor unit action potentials. Diagnostic impression: This is an abnormal study in the left upper limb 1. Electrodiagnostic findings suggestive of left-sided median mononeuropathy. This consistent with a mild left carpal tunnel syndrome. Multi Select Codes Neurology Neurology Interp Codes: 22138-86 Musc test done w/n test comp (interp) and 40612-35 Nrv cndj tst 5-6 studies (interp)
== END | disposition home or self-care (01) ==
PROVIDERS: PCP Internal Medicine; Referring Provider Student in an Organized Health Care Education/Training Program; Visit Provider Student in an Organized Health Care Education/Training Program
DX: R20.2 Paresthesia of skin (principal); M25.532 Pain in left wrist
CPT/HCPCS: 95886; 95909

== ENCOUNTER → 2024-08-21 | Outpatient (CLI) | payer MEDICARE, SELFPAY ==
--- NOTE | 2024-08-21 12:32 | CT_ITS ---
STUDY: CT LEFT SHOULDER WITHOUT CONTRAST. REASON FOR EXAM: Female, 64 years old. OA PRE OP BLUEPRINT SHOULDER RADIATION DOSAGE (If Supplied By Facility): CTDIvol = ( 23.10 ) mGy, DLP = ( 490.51 ) mGycm TECHNIQUE: The patient was scanned in a multi detector CT scanner. High resolution transaxial imaging was performed without the administration of intravenous contrast material. Sagittal and coronal images were reconstructed. Individualized dose optimization techniques were used for this CT. COMPARISON: Left shoulder x-ray dated February 03, 2020 FINDINGS: There is severe osteoarthritis, with severe articular joint space narrowing, osteoarthritic spurring, articular remodeling, and with articular erosions. The high riding humeral head abutting the undersurface of the acromium is consistent with full-thickness rotator cuff tendon tear/tears. Moderate fatty atrophy of the rotator cuff muscles is consistent with long-standing tears and denervation. The deltoid muscle is unremarkable. No fracture is present. The visualized aspect of the left lung is clear. Unremarkable left hemithorax. Normal coracoid process. Normal visualized lateral clavicle. There is moderate osteoarthritis with articular joint space narrowing and with osteoarthritic spurring. Undersurface spurring of the distal head of the clavicle impinges upon the musculotendinous junction of supraspinatus. There is a Type II morphology (curved), with a neutral orientation. No fluid collection or soft tissue masses are present. CT/Extremity Upper without Contra IMPRESSION: 1. 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 Electronically Signed: Nam Gonzalez MD at 14:54 EDT ,
== END | disposition home or self-care (01) ==
PROVIDERS: PCP Internal Medicine; Referring Provider Student in an Organized Health Care Education/Training Program; Visit Provider Student in an Organized Health Care Education/Training Program
DX: M19.012 Primary osteoarthritis, left shoulder (principal)
CPT/HCPCS: 73200

== ENCOUNTER 2024-09-15 11:32 | Observation (INO) | payer MEDICARE, SELFPAY ==
--- NOTE | 2024-08-27 10:43 | EKG12_ITS ---
Test Reason : PRE OP Blood Pressure : / mmHG Vent. Rate : 069 BPM Atrial Rate : 069 BPM P-R Int : 142 ms QRS Dur : 082 ms QT Int : 382 ms P-R-T Axes : 044 004 038 degrees QTc Int : 409 ms Normal sinus rhythm Normal ECG Confirmed by Aamir Breen ([id number]), society editor CRISTIAN ALAMO ([id number]) on 08/27/2024 1:54:17 PM Referred By: Nirav Whitney Confirmed By:Aamir Breen
[2024-08-27 11:06] LABS: Absolute Lymphocyte Count 2.06 X10^3/uL (0.83-4.51); Absolute Neutrophil Count 2.7 X10^3/uL (2.0-7.7); Basophil# 0.03 X10^3/uL; Basophil% 0.5 % (0-1); Eosinophil# 0.21 X10^3/uL; Eosinophils% 3.8 % (0-5); Hematocrit 41.5 % (37-47); Lymphocyte # 2.06 X10^3/ul (0.83-4.51); Lymphocyte % 37.2 % (19-41); Mean Corp Hgb Conc 33.7 g/dL (32-36); Mean Corpuscular Hgb 30.6 pg (27.0-32.0); Mean Corpuscular Volume 90.8 fL (81-99); Mean Platelet Vol. 9.2 fl (6.2-12.0); Monocyte# 0.53 X10^3/uL; Monocyte% 9.6 % (0-10); NRBC Flagged by Analyzer 0 % (0-5); Neutrophil % 48.7 % (47-70); Platelet Count 209 K/mm3 (150-450); RBC Distribution Width CV 13.1 % (11.6-14.6); RBC Distribution Width SD 42.9 fl (35.1-43.9); Red Blood Count 4.57 M/mm3 (4.2-5.4); White Blood Count 5.5 K/mm3 (4.4-11.0)
[2024-08-27 11:31] LABS: Albumin, Serum 3.7 g/dL (3.2-5.0); Anion Gap 5 (5-15); BUN 15 mg/dL (7-18); BUN/Creat Ratio 24.4 RATIO (10-20); Calcium,Total 9.4 mg/dL (8.5-10.1); Chloride 104 mmol/L (98-107); Creatinine, Serum 0.62 mg/dL (0.55-1.02); EST Glomerular Filtration Rate 103 mL/min (>60); Est Glom Filt Rate - Afr Amer 125 mL/min (>60); Glucose 91 mg/dL (74-106); Potassium 4.4 mmol/L (3.5-5.1); Sodium Level 137 mmol/L (136-145)
[2024-08-27 11:41] LABS: Thyroid Stim Hormone (TSH) 0.709 uIU/mL (0.358-3.740)
[2024-09-15] VITALS (11 sets, daily range): BP systolic 111–143; BP diastolic 62–92; PULSE 73–96; RESP 14–16; TEMP 36.2–37.1; O2SAT 95–99; BMI 29.4
--- NOTE | 2024-09-15 | SHO_PTH ---
PATHOLOGY RESULTS PATIENT: ALBERTINA WORKMAN LOC: [id number] U#:[id number] AGE/SX: 64/F ROOM: ID319 RE09/15/[address]: Dr. Nirav Whitney DO : 1960 BED: 1 DIS: 09/16/2024 SPEC #: [id number] RECD: 09/15/24 13:14 STATUS: PRAMOD LOPEZOumar #: [id number] MOR: 09/15/24 00:[address]: Nirav Whitney DEPT: SURGICAL PATHOLOGY RECD BY: Maximo Danielson ENTERED: 09/15/24 13:15 SP TYPE: HUMERUS OTHR DR: Dr. Kelli Senior DO Tissues: Humerus, NOS Procedures: Decalcification bone/plaque Surgery Specimen Level IV HEADER OPERATION: Left reverse total shoulder arthroplasty PRE-OP DIAGNOSIS: Severe left glenohumeral arthritis TISSUE SUBMITTED: Bone left shoulder MICROSCOPIC DIAGNOSIS Bone left shoulder, total shoulder replacement/resection: Humeral head with degenerative osteoarthritic changes. EVA. 09/18/2024 MICROSCOPIC DESCRIPTION Slides are reviewed. GROSS DESCRIPTION Received is one container labeled with the patient's name and designated bone and soft tissue. The specimen consists of a humeral head measuring 5.5 x 6.0 x 3.0 cm. The articular surface shows areas of erosion and osteophyte formation. No soft tissue is identified. Motor Vehicle Or Caravan Salesperson sections are submitted in two cassettes after decalcification. / SJ: 09/15/2024 TC:5 CPT: 35941, 20809
--- NOTE | 2024-09-15 07:25 | PCM.PRE.AN2 ---
ASA Classification* ASA Classification ASA Classification: 2 Assessment & Plan Anesthesia* Anesthesia Assessment Anesthesia Assessment: Discussed sedation and/or anesthesia options, risks, benefits, and alternatives with patient/parents/legal guardian/POA. Questions invited. The patient/parents/legal guardian/POA seems to understand and agrees to proceed with anesthesia plan. Reviewed the physical assessment, medical history, allergy history and patient home medications list prior to surgery/procedure/anesthetic and documented any changes. Performed airway and anesthesia risk assessments. Anesthesia Type Anesthesia Type: General Anesthesia Focused Assessment* Airway Assessment Mouth opens: >3 cm Mallampati Score: II Focused Labs Anesthesia Preop lab: CBC WBC 5.5 K/mm3 (4.4-11.0) 08/27/24 10:34 RBC 4.57 M/mm3 (4.2-5.4) 08/27/24 10:34 Hgb 14.0 g/dL (12.0-15.0) 08/27/24 10:34 Hct 41.5 % (37-47) 08/27/24 10:34 Plt Count 209 K/mm3 (150-450) 08/27/24 10:34 CHEMISTRY Potassium 4.4 mmol/L (3.5-5.1) 08/27/24 10:34 Sodium 137 mmol/L (136-145) 08/27/24 10:34 Magnesium 2.0 mg/dL (1.6-2.6) 08/27/24 10:34 Phosphorus 3.7 mg/dL (2.5-4.9) 02/27/19 07:44 BUN 15 mg/dL (7-18) 08/27/24 10:34 Creatinine 0.62 mg/dL (0.55-1.02) 08/27/24 10:34 Glucose 91 mg/dL (74-106) 08/27/24 10:34 POC Glucose 99 mg/dL (74-106) 11/09/22 08:57 TSH 0.709 uIU/mL (0.358-3.740) 08/27/24 10:34 COAG Pre-Assessment Diagnosis/Proposed Procedure Planned Operative Procedure(s): LEFT REVERSE TOTAL SHOULDER ARTHROPLASTY, ERAS Anesthesia History 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 When Was Last Pacemaker Check QUESTION #4 FULL TEXT: You/Your Family Experience fever (hyperthermia) with Anesthesia Last Oral Intake Last Oral intake: Last Oral Intake NPO since Meds taken in AM with sips of water? Meds patient instructed to take am of surgery PONV PONV - architectural superintendent: PONV - architectural superintendent Female Yes 08/19/24 11:20 HX of Motion Sickness Yes 08/19/24 11:20 HX of N/V After Surgery No 08/19/24 11:20 Non-Smoker Yes 08/19/24 11:20 Duration of Surgery greater Yes 08/19/24 11:20 than 60 minutes Number of Risk Factors 4 08/19/24 11:20 PONV Score Severe Risk 08/19/24 11:20 Height & Weight Height & Weight: Anesthesia: Height & Weight Height 5 ft 2 in 08/25/24 13:49 Respiratory Assessment Respiratory Assessment - architectural superintendent: Respiratory Tract Infection Hx - architectural superintendent Hx Respiratory Tract Infection No 08/19/24 11:20 STOP Sleep Apnea STOP Sleep Apnea - architectural superintendent: STOP Sleep Apnea - architectural superintendent Hx Hypertension Yes 08/19/24 11:20 Hx Sleep Apnea Yes 08/19/24 11:20 CPAP Yes 08/19/24 11:20 BIPAP No 08/19/24 11:20 Do you snore loudly (louder than talking or can be heard Do you often feel tired/ fatigued/ sleepy during daytime? Has anyone observed you stop breathing during sleep? STOP Results Positive 08/19/24 11:20 QUESTION #5 FULL TEXT : Do you snore loudly (louder than talking or can be heard through closed doors)? Tobacco Use History Tobacco Use History - architectural superintendent: Tobacco Use History - architectural superintendent Tobacco Use Smoking Status Former smoker 08/19/24 11:20 Hx Tobacco Use No 08/19/24 11:20 Years Smoking Packs Smoked per Day Smoking Cessation Date was No - quit smoking greater 08/19/24 11:20 within the last 15 years than 15 years ago Hx Smoking Cessation Date Hx Smoking Cessation No 08/19/24 11:20 Counseling Hematologic Medial History Hematologic Hx - architectural superintendent: Hematologic Medical Hx - backbreaker Hx of Blood Transfusion No 08/19/24 11:20 Hx of Transfusion in last 3 No 08/19/24 11:20 Months Date of Last Transfusion (if within last 3 months) Ever experience any problems No 08/19/24 11:20 with transfusion(s)? Specify any problems Hx of Preganancy in last 3 No 08/19/24 11:20 Months Nurse Filling Out Transfusion VCHRISTIN 08/19/24 11:20 & Questions: Date: 08/19/24 08/19/24 11:20 Time: :08/19/24 11:20 Patient unable to answer at this time (ie. confused, unrespo /Reproduction History /Reproductive History - architectural superintendent: /Reproductive Hx- architectural superintendent Hx Now Gestational Age (in weeks): EDC: Hx Hx Para Hx Section SAB Active Medications Active Medications: Current Medications Generic Name Dose Route Start Last Admin Trade Name Freq PRN Reason Stop Dose Admin Acetaminophen 1,000 mg 09/15/24 12:00 Acetaminophen 500 Mg Tablet PO 09/15/24 12:01 X1 ONE Celecoxib 400 mg 09/15/24 12:00 Celecoxib 200 Mg Capsule PO 09/15/24 12:01 X1 ONE Gabapentin 600 mg 09/15/24 12:00 Gabapentin 600 Mg Tablet PO 09/15/24 12:01 X1 ONE Tranexamic Acid 1,000 mg/ 110 mls @ 660 mls/hr 09/15/24 12:00 Sodium Chloride IV 09/15/24 12:09 X1 ONE Lactated Ringer's 1,000 mls @ 125 mls/hr 09/15/24 14:00 IV 09/15/24 21:59 .Q8H ELLIOTT Cefazolin Sodium 2 gm/ N/A 20 mls @ 400 mls/hr 09/15/24 12:00 IV 09/15/24 12:02 PREOP ONE Magnesium Sulfate 1 gm/ 102 mls @ 408 mls/hr 09/15/24 12:00 Dextrose IV 09/15/24 12:14 X1 ONE Lactated Ringer's 1,000 mls @ 125 mls/hr 09/15/24 07:30 IV 09/15/24 23:29 .Q8H [facility] Protocol Insulin Human Lispro 1 - 6 unit 09/15/24 12:00 Insulin Lispro 100 Unit/Ml Insuln.Pen SC 09/15/24 18:00 Q4H PRN PRN BG>/= 180, SEE PROTOCOL Protocol PFSH Medical History Cardiology follow-up encounter History of echocardiogram Hypothyroidism Familial hypercholesteremia Lamine syndrome TIA (transient ischemic attack) Wears partial dentures Wears glasses MRSA infection Alcohol use History of steroid therapy Thyroid disease Ambulates with cane Arthritis Back pain History of hiatal hernia Gastric reflux Former smoker CPAP (continuous positive airway pressure) dependence Sleep apnea History of edema History of stress test Hypertension Post-menopausal Central hypothyroidism Paronychia Depressive disorder Iliotibial band tendonitis 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 Macrocytosis Scoliosis/kyphoscoliosis Glucocorticoid deficiency Obesity Osteoarthritis Depression TAD (obstructive sleep apnea) Home Medications ?Medication ?Instructions ?Recorded ?Last Taken ?Type biotin 5,000 mcg disintegrating 10,000 mcg PO QDAY 12/19/17 Unknown History tablet calcitriol 0.25 mcg capsule 0.25 mcg PO QDAY OSTEOPOROSIS 12/19/17 Unknown History calcium carbonate 500 mg PO BID 12/19/17 Unknown History ergocalciferol (vitamin D2) 1,250 50,000 unit PO QWEEK 12/19/17 Unknown History mcg (50,000 unit) capsule fludrocortisone 0.1 mg tablet 0.05 mg PO QODAY STEROID 12/19/17 Unknown History REPLACEMENT fluoxetine 20 mg capsule (Prozac) 20 mg PO QDAY 12/19/17 Unknown History levothyroxine 88 mcg tablet 88 mcg PO DAILY 12/19/17 11/09/22 History (Synthroid) mecobalamin (vitamin B12) 1,000 1,000 mcg sublingual QWEEK 12/19/17 Unknown History mcg disintegrating tablet,sublingual omeprazole 20 mg capsule,delayed 40 mg PO ONCE 12/19/17 11/09/22 History release pediatric multivitamin no.76 1 tab PO QDAY 12/19/17 Unknown History (Gummy Dinos chewable tablet) prednisone 2 mg tablet,delayed 4 mg PO QHS 12/19/17 Unknown History release triamterene 37.5 1 cap PO QAM 12/19/17 Unknown History mg-hydrochlorothiazide 25 mg capsule (Dyazide) potassium chloride 20 mEq oral 40 meq PO DAILY 06/01/20 Unknown History packet aspirin 81 mg tablet,delayed 81 mg PO .COMPLEX 08/25/24 Unknown History release (Adult Aspirin Regimen) denosumab 60 mg/mL subcutaneous 60 mg subcut [id number] 08/25/24 Unknown History syringe (Prolia) Allergy/AdvReac Type Severity Reaction Status Date / Time adhesive tape Allergy Severe NEEDS Verified 08/25/24 13:14 FOLLOW-UP Seasonal Allergies: Uncoded Allergy Severe NEEDS Verified 08/25/24 13:14 FOLLOW-UP Family History Mother Cancer cervical Father Cancer Brother Cancer Surgical History Hx of carpal tunnel repair History of reverse total replacement of right shoulder joint Hx of toe surgery History of cataract surgery History of total left hip arthroplasty History of total left knee replacement (TKR) History of total right hip replacement History of gastric bypass History of abdominoplasty left 3rd toe amputation History of breast mammoplasty left second toe amputation hammer toe surgery History of bunionectomy of both great toes Hx of total adrenalectomy H/O discectomy Social History Smoking Status: Former smoker Tobacco: How many years used: 10 Electronic Cigarette Use: not used how long ago did patient quit smokin, 0.5p/day second hand exposure: Yes alcohol intake: current substance use type: does not use Review of Systems (Anesthesia) ROS Narrative System reviewed and no additional complaints, except as documented.
[2024-09-15] MEDS: Lactated Ringers 1,000 ML 125 ML IV ×2 (08:07→13:37)
[2024-09-15] MEDS: Acetaminophen 500 MG Tablet 1000 MG PO (08:07)
[2024-09-15] MEDS: Celecoxib 200 MG Capsule 400 MG PO (08:08)
[2024-09-15] MEDS: Gabapentin 600 MG Tablet PO (08:08)
[2024-09-15 08:23] LABS: Bedside Glucose 101 mg/dL (74-106)
[2024-09-15] MEDS: Magnesium 1 GM over 15 mins IV (08:51)
[2024-09-15] MEDS: Cefazolin 2 GM in Syringe IV (09:49)
[2024-09-15] MEDS: TXA 1000mg in NS100 100ml (IVPB at Incision) 660 MG IV (09:59)
[2024-09-15] MEDS: Vancomycin IV 1,000 MG/20 ML Vial 1000 MG OPERA.SITE (11:03)
--- NOTE | 2024-09-15 11:51 | RAD_ITS ---
STUDY: X-RAY - LEFT SHOULDER REASON FOR EXAM: Female, 64 years old. Post op -- AP and Lateral X-Ray of operative shoulder in PACU TECHNIQUE: 2 view(s) of the shoulder. COMPARISON: Comparison is made with prior study dated February 03, 2020. FINDINGS: The patient is status post left reverse shoulder replacement. There is good alignment Increased markings are seen at the left lung base suggestive of atelectasis. Postoperative soft tissue changes. RAD/Shoulder min 2 Views IMPRESSION: Status post left reverse shoulder replacement. There is good alignment. Postoperative soft tissue changes. Electronically Signed: Moreno Camarillo MD at 12:26 EST ,
--- NOTE | 2024-09-15 12:07 | PCM.POST.ANE ---
Anesthesia: Postop Eval I Current Vital Signs Temperature: 97.2 F Pulse Rate: 88 Blood Pressure: 136/76 Respiratory Rate: 14 Pulse Ox: 95 Oxygen Delivery Method: Nasal Cannula Oxygen Flow Rate (L/min): 2 Assessment Airway patent: Yes Spontaneous unlabored respirations: Yes Mental status: Awake and Calm nausea: No Vomiting: No Anesthesia Complication: No Fluid Hydration Crystalloid volume administer (ml): 1,000 Total IV fluid infused: 1,000 Progress Note Anesthesia document: Postop Eval 1 completed: Yes
[2024-09-15] MEDS: FLUoxetine 20 MG Capsule PO (13:38)
--- NOTE | 2024-09-15 15:13 | POSTOPAN2_ITS ---
Anesthesia Postop Eval I Sum Postop Eval Completion status Anesthesia document: Postop Eval 1 completed: Yes Anesthesia Postop Eval I Summary Anesthesia Postop Eval I Summary: Anesthesia Postop Eval I: Assessment Summary Airway patent Yes 09/15/24 12:07 TELEPHONE DIAPHRAGM ASSEMBLER.[email or web address] Spontaneous unlabored Yes 09/15/24 12:07 TELEPHONE DIAPHRAGM ASSEMBLER.OT respirations Mental status Awake,Calm 09/15/24 12:07 TELEPHONE DIAPHRAGM ASSEMBLER.MDOT nausea No 09/15/24 12:07 TELEPHONE DIAPHRAGM ASSEMBLER.MDOT Vomiting No 09/15/24 12:07 TELEPHONE DIAPHRAGM ASSEMBLER.MDOT Anesthesia Postop Eval I: Fluid Summary Crystalloid volume administer 1,000 09/15/24 12:07 TELEPHONE DIAPHRAGM ASSEMBLER.MDOT (ml) Colloids volume administered ( ml) Blood Product volume administered (ml) Total IV fluid infused 1,000 09/15/24 12:07 TELEPHONE DIAPHRAGM ASSEMBLER.TAMERA Anesthesia Postop Eval I: Summary Notes Anesthesia Complication No 09/15/24 12:07 TELEPHONE DIAPHRAGM ASSEMBLER.MDOT Anesthesia Complication Comment: Post-operative progress note Anesthesia: Postop Eval II Evaluation Mental status: Awake and Calm Pain Level: 1 nausea: No Vomiting: No Complications Anesthesia Complication: No
--- NOTE | 2024-09-15 15:13 | PCM.POSTANE2 ---
Anesthesia Postop Eval I Sum Postop Eval Completion status Anesthesia document: Postop Eval 1 completed: Yes Anesthesia Postop Eval I Summary Anesthesia Postop Eval I Summary: Anesthesia Postop Eval I: Assessment Summary Airway patent Yes 09/15/24 12:07 PRESSURE WELDER.[email or web address] Spontaneous unlabored Yes 09/15/24 12:07 PRESSURE WELDER.OT respirations Mental status Awake,Calm 09/15/24 12:07 PRESSURE WELDER.MDOT nausea No 09/15/24 12:07 PRESSURE WELDER.MDOT Vomiting No 09/15/24 12:07 PRESSURE WELDER.MDOT Anesthesia Postop Eval I: Fluid Summary Crystalloid volume administer 1,000 09/15/24 12:07 PRESSURE WELDER.MDOT (ml) Colloids volume administered ( ml) Blood Product volume administered (ml) Total IV fluid infused 1,000 09/15/24 12:07 PRESSURE WELDER.TAMERA Anesthesia Postop Eval I: Summary Notes Anesthesia Complication No 09/15/24 12:07 PRESSURE WELDER.MDOT Anesthesia Complication Comment: Post-operative progress note Anesthesia: Postop Eval II Evaluation Mental status: Awake and Calm Pain Level: 1 nausea: No Vomiting: No Complications Anesthesia Complication: No
--- NOTE | 2024-09-15 16:04 | OP.PCM_ITS ---
Operative Report (Standard) Operative Information Surgery/Procedure Performed: Left reverse total shoulder arthroplasty Surgeon: Nirav Whitney Date of Procedure: 09/15/24 Procedure Start Time: 10:19 Procedure Stop Time: :25 Pre-Operative Diagnosis: Left shoulder cuff tear arthropathy Post-Operative Diagnosis: Left shoulder cuff tear arthropathy Select all DRAINS/GRAFTS/IMPLANTS that apply: None (See dictated op report below) Type of Anesthesia: General/Regional Estimated Blood Loss: 50 cc Fluids Replaced: Per anesthesia record Specimen collected: No Description of surgery: Preoperative diagnosis: Left shoulder rotator cuff arthropathy Postoperative diagnosis: Left shoulder rotator cuff arthropathy Procedure: Left Reverse total shoulder arthroplasty Surgeon: Nirav Whitney DO Clean Up Supervisor: Karolyn Baker PA-C Anesthesia: General endotracheal Mechanical Technician: Nathaniel Lester CRNA Complications: None apparent Drains: None Estimated blood loss: 50 cc Urinary output: None IV fluids: Per anesthesia record Specimens: None Surgical implants: Tornier Aequalis PerFORM+ reversed baseplate 25 mm diameter + 6 mm lateralization, standard glenosphere cobalt chrome 39 mm diameter, Tornier perform inlay stem size #2, + 6mm retentive size number polyethylene insert, short central post and peripheral screws x4. Surgical indications: This is a 64-year-old female with persistent left shoulder pain. She did have worsening symptoms over the last several months. X-rays revealed rotator cuff arthropathy. I recommended a reverse shoulder arthroplasty. We obtained a preoperative CT scan for planning. The risks, benefits, alternatives the procedure was reviewed with the patient and he agreed to proceed. Risks included but were not limited to bleeding, infection, instability, loss of life or limb, risk of anesthesia, neurovascular injury, persistent pain, stiffness, prolonged immobilization, need for additional surgery, loosening of orthopedic hardware. She expressed understanding and wished to proceed with surgery. Surgical details: Patient arrived to [facility] morning of the procedure and was greeted by the same day surgery staff. Prior to her procedure, I greeted the patient in the preoperative holding area I identified the patient by name, record number, and date of . Informed consent was confirmed. The operative extremity was marked. All questions were answered to patient satisfaction. An interscalene block was administered prior to procedure by anesthesia staff for postoperative and intraoperative analgesia. At time of her procedure, patient was brought to the operative suite and positioned supine on a standard table with a beachchair attachment. General anesthesia was induced after all bony prominences were well-padded. Endotracheal tube was placed. After adequate anesthesia and securing the tube, we prepared the patient to be positioned in the beachchair position. A well- padded head automatic sawyer was applied. The nonoperative extremity was placed in a well arm hernandez. She was then brought into the beachchair position after we confirmed an appropriate blood pressure. We then spun the bed 45 degrees. The operative extremity was then prepared. In the butterfly wing of the bed was removed and a well-padded torso strap was applied to secure the patient to the bed. The operative extremity was now free. We then prepped and draped the Left upper extremity in normal, sterile orthopedic fashion. We then performed a timeout with all parties in attendance in agreement with the side, site, and operation be performed. 2 g Ancef was administered prior to incision by anesthesia staff, as well as 1 g TXA IV. No concerns were voiced and we elected to proceed. I first marked a standard deltopectoral incision just lateral to the coracoid process in line with the long axis of the humerus. Skin was sharply incised with 10 blade scalpel. I then dissected bluntly through the subcutaneous layers and found the fat stripe between the deltoid and pectoralis major. The cephalic vein was then identified and protected. It was retracted laterally with the deltoid. I then bluntly dissected underneath the deltoid with a Cruz elevator. Geneva retractor was placed. The upper 1 cm of the pectoralis major was released. I then identified the long head of the biceps tendon in the intertubercular groove. This was tenodesed in situ with #2 FiberWire. I then amputated the biceps proximal to the tenodesis site and followed the tendon to the supraglenoid tubercle where it was amputated. This identified the lesser and greater tuberosities. The supraspinatus was completely torn and retracted with an exposed greater tuberosity. I then performed a subscapularis peel while rotating the humerus externally. I tagged the subscapularis for possible repair later with a tagging suture. Humeral head was then dislocated anteriorly. Appropriate access to the humeral head was confirmed. I then subluxed the humeral head posteriorly with a Fukuda retractor placed around the posterior lip of the glenoid. Inferior capsule was tension. I was able to palpate the axillary nerve. Inferior capsule was then released to the 4 o'clock position of the glenoid face. 3 sided subscapularis release was performed with Bovie cautery. I then remove the Fukuda retractor and redislocated the shoulder anteriorly. I then made a anatomic neck cut of the cartilaginous surface of the humeral head. Sizing plate for a size # 2 stem was utilized to determine appropriate reaming size. A central pin was placed engaging the lateral cortex of the humerus. A size # 2 reamer was used to ream the humeral metaphysis and prepare for the inlay stem. A canal finding reamer was utilized prior to sequential broaching to a size # 2 short stem with excellent rotational and axial purchase in the humerus. I remove the broach handle left the size # [address] I then subluxed the humerus posterior to the glenoid. I then placed retractors around the posterior and anterior glenoid to expose the glenoid. Glenoid labrum was removed with Bovie cautery protecting the axillary nerve. We then used 25mm guide to position our centering pin, exiting approximately 25 mm from the joint surface along the anterior scapula. Guide was removed and pin was analyzed and compared to preoperative planning. It appeared to be in appropriate position. The Nautilus shaped reamer was then placed over top of the centering pin. I reamed a flat surface of the glenoid. We then removed the reamer and used the cannulated drill for the short central post. Post and baseplate was assembled on the back table. We then inserted the baseplate and central post the assembled baseplate to an appropriate depth with good press-fit purchase. A Berlin was used to confirm depth. Cortical screws then were placed in the peripheral holes with good purchase. The baseplate had excellent purchase and the entire scapula would rotate with rotation of the ba seplate. We then impacted the 39 mm glenosphere with a standard eccentricity and tightened the locking screw mechanism. We then removed retractors and turned our attention back to the humerus. I pl aced a standard +6 millimeters retentive polyethylene insert. I then reduced the shoulder. There was excellent range of motion and stability in all planes of motion. We selected this as our final size. We removed trials from the humerus after final dislocation. I copiously irrigated the canal. Broach was placed on hand and then impacted to an appropriate depth. Final + 6mm retentive polyethylene insert was placed. Final reduction was then performed. The subscapularis was then identified with a tagging suture. Repair would have been likely under undue tension and likely failed. I elected to not perform a subscapularis repair. We then copiously irrigated the wound with sterile Betadine and normal saline solution. We reapproximated the interval with 0 Vicryl suture. Subcutaneous layers were reapproximated with 2 -0 Vicryl suture. Skin was finally running V- Loc 3-0 Monocryl suture and Dermabond. A sterile silver Mepilex dressing was applied. Patient was then placed in an ultra sling. Patient tolerated procedure well without complication. He was positioned back in the supine position extubated in the operative suite. She was transferred to the [facility] and subsequently to PACU in stable condition. Need for skilled clinical education assistant: Karolyn Baker PA-C was critical to the outcome of the case. During the course of the procedure the physician clinical education assistant played a vital role. Her intimate knowledge of my steps in the procedure aided in safe and expedient completion of the procedure. The PA played a vital role in positioning particularly in obtaining the appropriate positioning. The PA was also vital in the retraction of soft tissues during the exposure and protecting vital structures. The PA was also vital and protecting soft tissues during times of bony cuts. She also played a vital role in closure with my direct supervision. The PA was also important during reduction and dislocation of the joint and trials intraoperatively. Intraoperative medications: 2 g Ancef IV, 1 g TXA IV x2 Post Operative Plan: Weightbearing: Nonweightbearing left upper extremity, okay for pendulums. Range of motion of wrist elbow and hand as tolerated. Antibiotics: 2 g Ancef IV prior to incision, 24 hours IV antibiotics postoperatively DVT Prophylaxis: Aspirin enteric-coated 81 mg twice daily starting tomorrow Larios: None Dressing: Maintain silver dressing x7 days. Okay to shower dressing on started on day 4 X-Rays: 2 weeks postop in the office Pain Medication: Hydrocodone Rx upon discharge Follow-up: 2 weeks post-operatively in the office Surgical Findings: Left shoulder cuff tear arthropathy Director Women ship manager: Yes Clean Up Supervisor: Karolyn Baker Tasks completed by assistant softball coach: Opening & closing, Dissecting tissue, Implanting device and Retracting Additional clinical education assistant?: No Complications Complications: No Admit VTE Documentation VTE Present on Admission: No VTE Mechan Device Prophylaxis: SCD's VTE Pharm Prophylaxis ordered?: Yes
[2024-09-15] MEDS: Calcium (Elemental) 500 MG Tablet PO (17:12)
[2024-09-15] MEDS: Cefazolin 1 GM/50 ML BAG IV (17:15)
[2024-09-15] MEDS: predniSONE 1 MG Tablet 4 MG PO (20:06)
[2024-09-15] MEDS: Senna/Docusate Sodium 1 Tablet 2 TABLET PO (20:06)
[2024-09-15] MEDS: HYDROcodone Bitartrate/Apap 5/325 Tablet PO (21:40)
[2024-09-16 00:12] VITALS: BMI 29.4
[2024-09-16] MEDS: HYDROcodone Bitartrate/Apap 5/325 Tablet PO ×2 (02:56→11:30)
[2024-09-16] MEDS: Cefazolin 1 GM/50 ML BAG IV (02:57)
[2024-09-16 03:01] VITALS: BP 123/68; PULSE 92; RESP 14; TEMP 36.6; O2SAT 98
[2024-09-16 04:49] VITALS: BMI 29.4
[2024-09-16] MEDS: Pantoprazole Sodium 40 MG Tablet PO (05:15)
[2024-09-16] MEDS: Levothyroxine 88 MCG Tablet PO (05:15)
[2024-09-16 07:29] VITALS: BP 101/69; PULSE 69; RESP 16; TEMP 36.3; O2SAT 99
[2024-09-16] MEDS: Aspirin E.C. 81 MG Tablet PO (07:38)
[2024-09-16] MEDS: Calcium (Elemental) 500 MG Tablet PO (07:39)
[2024-09-16] MEDS: Potassium Chloride Oral Soln 20 MEQ/15 ML UDC 40 MEQ PO (07:40)
[2024-09-16 08:18] LABS: Hematocrit 38.5 % (37-47); Hemoglobin 12.8 g/dL (12.0-15.0); Mean Corp Hgb Conc 33.2 g/dL (32-36); Mean Corpuscular Hgb 30.3 pg (27.0-32.0); Mean Corpuscular Volume 91.2 fL (81-99); Mean Platelet Vol. 9.6 fl (6.2-12.0); Platelet Count 182 K/mm3 (150-450); RBC Distribution Width CV 13.2 % (11.6-14.6); RBC Distribution Width SD 43.3 fl (35.1-43.9); Red Blood Count 4.22 M/mm3 (4.2-5.4); White Blood Count 9.3 K/mm3 (4.4-11.0)
[2024-09-16 09:13] LABS: Anion Gap 8 (5-15); BUN 12 mg/dL (7-18); BUN/Creat Ratio 24.5 RATIO (10-20); Calcium,Total 8.7 mg/dL (8.5-10.1); Chloride 104 mmol/L (98-107); Creatinine, Serum 0.49 mg/dL (0.55-1.02); EST Glomerular Filtration Rate 134 mL/min (>60); Est Glom Filt Rate - Afr Amer 162 mL/min (>60); Estimated Creatinine Clearance 64.71 ml/min; Glucose 116 mg/dL (74-106); Potassium 3.6 mmol/L (3.5-5.1); Sodium Level 138 mmol/L (136-145)
--- NOTE | 2024-09-16 10:13 | CASEMGMT ---
OVIDIO STACY Assessment: Face to Face with pt for initial transition planning/care coordination assessment. RN REGIS introduced self and role at [facility], pt voices understanding and consents to assessment. Pt is A&O x4 and answers all questions appropriately at this time. Pt sitting up in chair in no distress. Care providers, pharmacy, and demographics verified/updated. Strata: 1 Admitting Dx: LT shoulder PCP: [facility] Specialists: Cali, Gas Booster Engineer; Fatuma, Flight Readiness Technician Preferred Pharmacy: [facility] Insurance: [employer] [facility] Prescription Benefit: yes LNOK: , Benny. Living Arrangements: Pt lives with in a 2 story home with 1+3+1 steps to enter. ADLs: Pt states I at home with ADLs and IADLs. Transportation: Pt drives self and denies concerns with transportation. DME: Cane, CPAP, built in shower bench. HHC/SNF: Previously at [place]. 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 Pt states no concerns with going home at time of dc. Pt reports therapy at scheduled for 09/18/24. Pt states no further concerns/needs. CM to follow. Advised pt to ask CM if any further question/concerns/needs arise, voices understanding. Pt Goal: Home Plan: Home with family support and OP therapy. Brittni NOLAN CM
[2024-09-16] MEDS: Triamterene 37.5MG/Hctz 25MG Capsule 1 CAP PO (10:27)
[2024-09-16] MEDS: FLUoxetine 20 MG Capsule PO (10:27)
[2024-09-16] MEDS: Senna/Docusate Sodium 1 Tablet 2 TABLET PO (10:28)
[2024-09-16] MEDS: Calcitriol 0.25 MCG Capsule PO (10:28)
--- NOTE | 2024-09-16 11:44 | PCM.PN.ORT ---
Subjective Subjective Patient is s/p left reverse total shoulder arthroplasty with Dr. Whitney 09/15/24.. Patient resting comfortably in bed. Rates pain 1/ 10 at rest. With movement 1/10. States taking Tylenol and oxycodone as needed and ice help to relieve pain. Patient has been up with therapy. Sling in place in the left upper extremity at all times. Nonweightbearing left upper extremity.. Afebrile, no chest pain, shortness of breath, negative calf pain/ erythema, and no other signs of DVT. Objective Data Objective Data Vital Signs: Vital Signs Temp Pulse Resp BP Pulse Ox O2 Del Method O2 Flow Rate 97.3 F L 69 16 101/69 99 Room Air 2 09/16/24 07:29 09/16/24 07:29 09/16/24 07:29 09/16/24 07:29 09/16/24 07:29 09/16/24 07:29 09/15/24 14:46 Oxygen Flow Rate (L/min) 2 Oxygen Delivery Method Room Air Weight: 73 kg Body Mass Index (BMI) 29.4 Intake & Output: Intake and Output for Last 24 Hours 09/14/24 09/15/24 09/16/24 22:59 23:59 23:59 Intake Total 2522 / 2522 170 / 170 Balance 2522 / 2522 170 / 170 Lab / Micro Data 09/16/24 07:25 09/16/24 07:25 Labs: Laboratory Results - last 24 hr 09/16/24 07:25: WBC 9.3, RBC 4.22, Hgb 12.8, Hct 38.5, MCV 91.2, MCH 30.3, MCHC 33.2, RDW Std Deviation 43.3, RDW Coeff of Alex 13.2, Plt Count 182, MPV 9.6, Sodium 138, Potassium 3.6, Chloride 104, Carbon Dioxide 26.0, Anion Gap 8, BUN 12, Creatinine 0.49 L, Estim Creat Clear Calc 64.71, Est GFR (MDRD) Af Amer 162, Est GFR (MDRD) Non-Af 134, BUN/Creatinine Ratio 24.5 H, Glucose 116 H, Calcium 8.7 Micro: Microbiology 08/27/24 10:34 Swab (Method) Nasal Screen MRSA/MSSA - Final Radiography Diagnostic Testing: Radiology Impression Shoulder X-Ray 09/15/24 11:51 IMPRESSION: Status post left reverse shoulder replacement. There is good alignment. Postoperative soft tissue changes. Electronically Signed: Moreno Camarillo MD at 12:26 EST , Physical Exam Narrative Patient resting comfortably in bed No signs of acute distress Satting well on room air Sling in place to left upper extremity Limb is warm to touch, Sensation intact throughout entire lower extremity, Radial pulses bounding Intact to radial, median, ulnar nerve distribution Dressing clear dry intact Calf nontender to palpation, no erythema, no edema. Negative Homans Assessment & Plan Assessment/Plan (1) Status post replacement of left shoulder joint: PLAN: Patient is status post left reverse total shoulder arthroplasty with Dr. Whitney 09/15/24. 1. Will continue PT today. Nonweightbearing left upper extremity. Sling at all times. okay for pendulums. Range of motion of wrist elbow and hand as tolerated. 2. plan for discharge this afternoon following PT 3. Patient will follow up for post op appointment on as previously scheduled 2 weeks postoperatively 4. Patient has outpatient PT appointment on as previously scheduled after her postop visit. 5. WBC 9.3 no acute reactive leukocytosis 6. H/H 12.8/38.5: no post operavtive anemia 7. DVT prophylaxis : Aspirin 81 mg twice daily x 2 weeks. 8. Pain control: patient instructed to take hydrocodone 5-325mg every 4-6 hours prn pain. 9. Patient also given a prescription of meloxicam for pain control, pepcid for ulcer prophylaxis , and senna. 10. ok to remove post op dressing. post op day 5-7 11. doxycyline 100mg BID x 2 weeks for ppx.
--- NOTE | 2024-09-16 11:51 | DCINST_ITS ---
Discharge Instructions Diet Discharge Diet: No restrictions Activity Discharge Activity: May Shower Weight Bearing Status: No weight bearing (left upper extremity. sling at all times ) Additional Activity Instructions:: sling at all times. ok for pendelums and ROM of hand/wrist Dressing / Incision Call your doctor if your incision/area has: Continuous Slow Oozing, Sudden Increased Bleeding, Increased Pain/ Swelling, Increased Redness, Foul Smelling Discharge and Swelling at the incision site Call your doctor if you observe: Fever of 101 or Higher, Inability to have a bowel movement, Shortness of breath, Dizziness, Chest pain and Calf discomfort Remove Dressing in: 1 week Cleanse incision/area with: Soap & Water and Keep Dressing Clean & Dry Follow Up Care When: With post orthopedics as previously scheduled 2 weeks postoperatively. Test Results: Test results from this visit will be discussed in further detail at your follow- up appointment, if applicable. Discharge Plan Admission Admit Date/Time: 09/15/24 11:32 Attending Provider: Nirav Whitney Primary Care Provider: Kelli Senior Discharge Orders/Prescriptions Prescriptions: New aspirin 81 mg Tablet,Delayed Release (Dr/Ec) 81 mg PO BID 14 Days Qty: 28 0RF hydrocodone-acetaminophen 5-325 mg Tablet 1 tab PO .q4-6hrs prn PRN (Reason: Pain Score 6-10) 7 Days Qty: 30 0RF meloxicam 7.5 mg Tablet 7.5 mg PO BIDCM 30 Days Qty: 60 0RF sennosides-docusate sodium [Stimulant Laxative Plus] 8.6-50 mg Tablet 2 tab PO BID Qty: 14 0RF doxycycline hyclate 100 mg tablet 100 mg PO BID 14 Days Qty: 28 0RF Continued fluoxetine [Prozac] 20 mg capsule 20 mg PO QDAY triamterene-hydrochlorothiazid [Dyazide] 37.5-25 mg capsule 1 cap PO QAM prednisone 2 mg tablet,delayed release (DR/EC) 4 mg PO QHS Patient Comments: take 2 tabs levothyroxine [Synthroid] 88 mcg tablet 88 mcg PO DAILY biotin 5,000 mcg tablet,disintegrating 10,000 mcg PO QDAY fludrocortisone 0.1 mg tablet 0.05 mg PO QODAY ergocalciferol (vitamin D2) 50,000 unit capsule 50,000 unit PO QWEEK calcitriol 0.25 mcg capsule 0.25 mcg PO QDAY mecobalamin (vitamin B12) 1,000 mcg tablet,disintegrating 1,000 mcg SUBLINGUAL QWEEK pediatric multivitamin no.76 [Gummy Dinos] tablet,chewable 1 tab PO QDAY calcium carbonate 500 mg calcium (1,250 mg) tablet 500 mg PO BID Prolia 60 mg/mL syringe 60 mg subcut [id number] potassium chloride 20 mEq packet 40 meq PO DAILY omeprazole 40 mg capsule,delayed release(DR/EC) 40 mg PO DAILY Held aspirin [Adult Aspirin Regimen] 81 mg tablet,delayed release (DR/EC) 81 mg PO .COMPLEX Hold Instructions: Resume on 10/01/24. Rx Instructions: one tablet by mouth twice per week Referrals / Follow Up: Kelli Senior DO [Primary Care Provider] - Disposition Disposition (needs filled in before D/C Order can be placed): Home, Self Care
--- NOTE | 2024-09-16 13:02 | CASEMGMT ---
Met with patient to complete VAZQUEZ form. VAZQUEZ form explained to patient who voiced understanding and signed form. Original form placed in pt?s chart and copy provided to patient. Nelli Enamorado, Discharge Planning Asst
--- NOTE | 2024-09-16 14:23 | PHA.DC.MR.R ---
Pharmacy [place] Med Reconciliation Pharmacy Service has performed discharge medication reconciliation for this patient. Medication education papers prepared, patient discharged when counseling was attempted. The patient's discharge medication list was reviewed for discrepancies and discrepancies were resolved. Medications at Discharge Home Medications biotin 5,000 mcg disintegrating tablet 10,000 mcg PO QDAY 12/19/17 calcitriol 0.25 mcg capsule 0.25 mcg PO QDAY OSTEOPOROSIS 12/19/17 calcium carbonate 500 mg PO BID 12/19/17 ergocalciferol (vitamin D2) 1,250 mcg (50,000 unit) capsule 50,000 unit PO QWEEK 12/19/17 fludrocortisone 0.1 mg tablet 0.05 mg PO QODAY STEROID REPLACEMENT 12/19/17 fluoxetine 20 mg capsule (Prozac) 20 mg PO QDAY 12/19/17 levothyroxine 88 mcg tablet (Synthroid) 88 mcg PO DAILY 12/19/17 mecobalamin (vitamin B12) 1,000 mcg disintegrating tablet,sublingual 1,000 mcg sublingual QWEEK 12/19/17 pediatric multivitamin no.76 (Gummy Dinos chewable tablet) 1 tab PO QDAY 12/19/17 prednisone 2 mg tablet,delayed release 4 mg PO QHS 12/19/17 triamterene 37.5 mg-hydrochlorothiazide 25 mg capsule (Dyazide) 1 cap PO QAM 12/19/17 potassium chloride 20 mEq oral packet 40 meq PO DAILY 06/01/20 aspirin 81 mg tablet,delayed release (Adult Aspirin Regimen) 81 mg PO .COMPLEX 08/25/24 denosumab 60 mg/mL subcutaneous syringe (Prolia) 60 mg subcut [id number] 08/25/24 omeprazole 40 mg capsule,delayed release 40 mg PO DAILY 09/15/24 aspirin 81 mg tablet,delayed release 81 mg PO BID 14 days #28 tabs 09/16/24 doxycycline hyclate 100 mg tablet 100 mg PO BID 14 days #28 tabs 09/16/24 hydrocodone-acetaminophen 5-325mg 5mg-325mg 1 tab PO .q4-6hrs prn PRN Pain Score 6-10 7 days #30 tabs 09/16/24 meloxicam 7.5 mg tablet 7.5 mg PO BIDCM 30 days #60 tabs 09/16/24 sennosides 8.6 mg-docusate sodium 50 mg tablet (Stimulant Laxative Plus) 2 tab PO BID #14 tabs 09/16/24
== END 2024-09-16 13:52 | disposition home or self-care (01) ==
LOC: SDC 12:03 → MS3 12:03
PROVIDERS: Anesthesiology; Admitting Provider Student in an Organized Health Care Education/Training Program; PCP Internal Medicine; Referring Provider Student in an Organized Health Care Education/Training Program; Visit Provider Student in an Organized Health Care Education/Training Program
PROC: (CPT 23472; principal; 2024-09-15 09:05)
DX: M75.122 Complete rotator cuff tear or rupture of left shoulder, not specified as traumatic (principal); Z87.891 Personal history of nicotine dependence; E03.9 Hypothyroidism, unspecified; Z79.890 Hormone replacement therapy; G47.33 Obstructive sleep apnea (adult) (pediatric); Z79.899 Other long term (current) drug therapy; E27.49 Other adrenocortical insufficiency
CPT/HCPCS: 23472; 01638; 64415; 36415; 73030; 80048; 82040; 82962; 83735; 84443; 85025; 85027; 87081; 88305; 88311; 93005; 94668; 96361; 96365; 96366; 97110; 97166; 97535; 99221; C1776; J7120; G0378; J2405; J3475

== ENCOUNTER 2024-11-10 16:00 | Outpatient (RCR) | payer MEDICARE, SELFPAY ==
--- NOTE | 2024-10-08 10:24 | HP.PTEVAL ---
Patient's Visit Information Visit Information Visit Information: ALBERTINA WORKMAN is a 64 year old F referred to Physical Therapy by SHELDON Butler with a diagnosis of L TSA 09/15/24. Date of Evaluation: 10/08/24 Physical Therapist: Wilner Garnett, PT, ATC Visit Plan Frequency: 1x/Week Duration: 2 Weeks Plan: Issue and instruct pt on HEP of rotator cuff strengthening and scap stab ex's Subjective Subjective: DOS: 09/15/24. Pt reports she had a L TSA performed at that time. Pt notes she had L shoulder weakness and difficulty with performing IADL's prior to having her surgery. Pt reports she is still in pain today, but that she is doing really well. Pt notes she had her R TSA performed one year ago, and notes that surgery turned out really well. Pt notes she is R hand dominant. Pt denies tingling or numbness in L UE. Pt denies sleep difficulty at this time secondary to pain. Pt reports she was able to mostly rehab her R shoulder on her own, and would like to do the same thing here. Pt reports she has hurt her L shoulder in the past after a fall, but notes no significant trauma in the past. Pt reports she is able to perform all of her IAD's at this time, but it is just more difficult secondary to weakness and limited ROM. 0/10 pain at rest, 7/10 pain at worst (when she is pulling up her pants) Pain L shoulder: Pain Intensity (Out of 10): 0 Pain Intensity Range: 7 Objective Objective: Neuro: B UE sensation is WNL to light touch Observation: Incision is healed. No signs of infection: ROM: R shoulder flex= 155, abd= 125, ER= 55, IR= moderately limited; L shoulder flex= 115, abd= 90, ER= 10, IR= Moderately limited MMT: R shoulder 4/5 throughout. L shoulder not tested. Balance/Special Test Scores Quick DASH Score: 45.4525 Goals Goal 1:: I with HEP Goal Time Frame: 4-6 Weeks Rehabilitation Potential Physical Therapy Diagnosis: Pt has L shoulder pain, weakness, and limited ROM secondary to L TSA Rehabilitation Potential: Good Anticipated Interventions Patient/Client Instruction: Educate patient on: Condition and Plan of Care For the Purpose of:: To facilitate caregiver knowledge Therapeutic Exercise to Include: Strength training, Endurance training, Active ROM and Scapular Strength/Stabilization For the Purpose of:: To decrease pain, To increase ROM and To improve muscle performance and motor function Cryotherapy (ice pack, ice massage): Yes For the Purpose of:: To decrease pain, To increase ROM and To improve muscle performance and motor function Text: Thank you for the opportunity to evaluate your patient. For Medicare and Medicare HMO plans, please review the plan of care and approve it. It will need to be FAXED BACK to us at [phone] for Medicare purposes. For Medicare only, by signing this I certify the plan of care. Please let me know if there are questions or concerns regarding this plan of care. Physician Signature: Date:
--- NOTE | 2024-11-10 16:45 | HP.PTDCSUM ---
Discharge Summary D/C summary: It has been my pleasure to treat ALBERTINA WORKMAN referred by SHELDON Butler, with the diagnosis of Lyly TSA 09/15/24 for a total of 2 visit(s). Discharge Date: Please see the following information for a summary of their discharge status. Subjective Subjective: I have not worked much on my ROM while being off. Pain ranges from 0-3/10 Pain L shoulder: Pain Intensity (Out of 10): 0 Overall Improvement % Improvement: 65 Objective Objective/Function: Pt is now I with HEP Goals Goal 1:: I with HEP Plan Plan: Discharge to HEP D/C Information d/c sentence: If there are questions or concerns regarding this patient's physical therapy, please feel free to call me at [phone]. Thank you for the referral of this patient. Sincerely, Wilner Garnett, PT, ATC Balance/Gait/Functional tests Balance/Special Test Scores Quick DASH Score: 45.4525 Improvement % Improvement: 65
--- NOTE | 2025-01-26 14:43 | HP.PT.NRP ---
Patient Information Patient Information: ALBERTINA WORKMAN was seen in my office for initial evaluation on 10/08/24. The following Plan of Care was established for this patient: POC Established Initial Frequency: 1x/Week Initial Duration: 2 Weeks Anticipated Interventions Patient/Client Instruction: Educate patient on: Condition and Plan of Care For the Purpose of:: To facilitate caregiver knowledge Therapeutic Exercise to Include: Strength training, Endurance training, Active ROM and Scapular Strength/Stabilization For the Purpose of:: To decrease pain, To increase ROM and To improve muscle performance and motor function Cryotherapy (ice pack, ice massage): Yes For the Purpose of:: To decrease pain, To increase ROM and To improve muscle performance and motor function Last Seen Last Seen: This patient was last seen in our office . Pertinent comments regarding their Physical therapy will appear below: Pt has not returned to therapy in greater than 30 days and is discontinued at this time. At this point I will be discontinuing this patient from physical therapy. I would be happy to see this patient again in the future if found appropriate by the physician. Thank you! Wilner Garnett, PT, ATC Balance/Gait/Functional tests Balance/Special Test Scores Quick DASH Score: [phone]
== END 2024-11-10 19:00 | disposition home or self-care (01) ==
LOC: PT 16:00
PROVIDERS: PCP Internal Medicine; Referring Provider Physician Assistant Surgical; Visit Provider Physician Assistant Surgical
DX: M19.012 Primary osteoarthritis, left shoulder (principal); Z47.1 Aftercare following joint replacement surgery; Z96.612 Presence of left artificial shoulder joint
CPT/HCPCS: 97110; 97161

== ENCOUNTER → 2024-11-28 | Outpatient (CLI) | payer MEDICARE, SELFPAY | END | disposition home or self-care (01) | LOC: SL 10:07 | PROVIDERS: PCP Internal Medicine; Referring Provider Nurse Practitioner Acute Care; Visit Provider Nurse Practitioner Acute Care | DX: Z00.00 Encounter for general adult medical examination without abnormal findings (principal) ==

== ENCOUNTER 2024-12-06 21:29 | Emergency (ER) | payer MEDICARE, SELFPAY ==
[2024-12-06] VITALS (7 sets, daily range): BP systolic 117–137; BP diastolic 69–98; PULSE 73–87; RESP 13–22; TEMP 36.1–36.5; O2SAT 98–99; BMI 28.9
--- NOTE | 2024-12-06 21:33 | CT_ITS ---
INDICATION: TIA, AMS EXAMINATION: CT BRAIN WITH CONTRAST TECHNIQUE: Noncontrast axial images were obtained of the brain. Subsequently, routine carotid CT angiogram protocol was performed without and with IV contrast. In addition, images were obtained of the [place] of [place]. NASCET criteria using the distal ICAs for comparison were used for evaluation of stenoses. 3D reconstructions were reviewed. A radiation dose optimization technique was used for this scan. IV Contrast dosage and agent: 100 cc [id number] COMPARISON: Noncontrast head CT 05/14/2024 FINDINGS: --CT BRAIN: BRAIN PARENCHYMA: No intra- or extra-axial hemorrhage. No evidence of acute infarct. No intracranial mass or mass effect. There is preservation of the kwon/white matter interface. Posterior fossa structures are unremarkable. CSF SPACES: Appropriate for age. No hydrocephalus. Basal cisterns are patent. CALVARIUM, SKULL BASE, PARANASAL SINUSES AND MASTOID AIR CELLS: Clear. No discrete lytic or blastic abnormalities. --CTA NECK: AORTIC ARCH AND BRANCHES: Vessel origins patent. RIGHT CCA: No occlusion, significant stenosis or dissection. RIGHT ICA: No occlusion, significant stenosis or dissection. LEFT CCA: No occlusion, significant stenosis or dissection. LEFT ICA: No occlusion, significant stenosis or dissection. RIGHT VERTEBRAL ARTERY: No occlusion, significant stenosis or dissection. LEFT VERTEBRAL ARTERY: No occlusion, significant stenosis or dissection. NECK SOFT TISSUES: Unremarkable. --CTA HEAD: --Anterior circulation: ICAs: No significant stenosis at the intracranial/visualized segments. ACAs: No significant stenosis at the visualized segments. ACOM: Present. MCAs: No significant stenosis at the visualized segments. --Posterior circulation: PCOMs: Patent bilaterally. director check: No significant stenosis at the visualized segments. BASILAR ARTERY: No significant stenosis. VERTEBRAL ARTERIES: No significant stenosis at the intradural/visualized segments. No evidence of intracranial aneurysm or vascular malformation. CT/CTA Head AND Neck W/ Contrast IMPRESSION: Negative CT Brain, CTA Carotid, and CTA Brain. Electronically Signed: Wilfrido Dent MD at 0:11 EST ,
--- NOTE | 2024-12-06 21:33 | ED.RN ---
Per Dr. Wellington, stroke alert is cancelled and [facility] does not need to be contacted.
--- NOTE | 2024-12-06 21:34 | CT_ITS ---
EXAM: CT Abdomen And Pelvis W/O Contrast Injection HISTORY: abdominal pain TECHNIQUE: Routine protocol CT abdomen and pelvis. IV Contrast: None.. Oral contrast: None. RADIATION DOSAGE (If Supplied By Facility): CTDIvol = ( 20.43 ) mGy, DLP = ( 1000.39 ) mGycm Individualized dose optimization techniques were used for this CT. COMPARISON: None. LIMITATIONS: None. FINDINGS: LOWER CHEST: Included lung bases are clear. Coronary artery calcifications are noted. LIVER: Grossly unremarkable. GALLBLADDER AND BILIARY TREE: Grossly unremarkable. PANCREAS: Grossly unremarkable. SPLEEN: Grossly unremarkable. ADRENAL GLANDS: Grossly unremarkable. KIDNEYS AND URETERS: No calculi demonstrated. No hydronephrosis. PERITONEUM: No free air. No free fluid. BOWEL: Surgical clips in the upper and mid abdomen presumed gastric bypass surgery. There is twisting of the bowel about the vessels centrally in the mesentery, at the level of the distal small bowel anastomosis, consistent with volvulus or internal hernia, with edema in the associated mesentery. Suggestion of bowel wall thickening in this region although possibly exaggerated by nondistention. No definite pneumatosis identified. No bowel obstruction. APPENDIX: Visualized and unremarkable. No evidence of acute appendicitis. VESSELS: Abdominal aorta is normal caliber. REPRODUCTIVE ORGANS: Grossly unremarkable URINARY BLADDER: Grossly unremarkable. ABDOMINAL WALL: Unremarkable. BONES: No acute abnormalities. Surgical hardware in the right hip. 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 Urgent surgical consultation recommended. Prior presumed gastric bypass. No bowel obstruction. Nonstandard communication protocol initiated immediately upon receipt, 12:53 AM eastern time. Prior to dictation. I discussed the findings with Mario Batista by telephone at 12:57 AM eastern time. N.B. : The above Results were Read Back by Ely Xiong MD to Mario Wellington DO, and understanding confirmed on 12/07/2024 00:57:16 (ET). Electronically Signed: Ely Xiong MD at 1:00 EST ,
--- NOTE | 2024-12-06 21:35 | EKG12_ITS ---
Test Reason : NEURO Blood Pressure : */* mmHG Vent. Rate : 84 BPM Atrial Rate : 84 BPM P-R Int : 156 ms QRS Dur : 94 ms QT Int : 388 ms P-R-T Axes : 76 4 47 degrees QTcB Int : 458 ms Normal sinus rhythm Normal ECG Confirmed by TIN DANIEL, BEAU ([id number]), editor publications COY JAVIER ([id number]) on 12/09/2024 6:14:23 AM Referred By: Confirmed By: BEAU CASTLE MD
--- NOTE | 2024-12-06 21:55 | EDS_ITS ---
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 OFFBEARER-C) Cardiology follow-up encounter History of echocardiogram Hypothyroidism Familial hypercholesteremia Lamine syndrome TIA (transient ischemic attack) Wears partial dentures Wears glasses MRSA infection Alcohol use History of steroid therapy Thyroid disease Ambulates with cane Arthritis Back pain History of hiatal hernia Gastric reflux Former smoker CPAP (continuous positive airway pressure) dependence Sleep apnea History of edema History of stress test Hypertension Post-menopausal Central hypothyroidism Paronychia Depressive disorder Iliotibial band tendonitis 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 Macrocytosis Scoliosis/kyphoscoliosis Glucocorticoid deficiency Obesity Osteoarthritis Depression TAD (obstructive sleep apnea) Home Medications ?Medication ?Instructions ?Recorded ?Last Taken ?Type biotin 5,000 mcg disintegrating 10,000 mcg PO QDAY 12/19/17 09/07/24 History tablet calcitriol 0.25 mcg capsule 0.25 mcg PO QDAY OSTEOPOROSIS 12/19/17 09/08/24 History calcium carbonate 500 mg PO BID 12/19/17 09/08/24 History ergocalciferol (vitamin D2) 1,250 50,000 unit PO QWEEK 12/19/17 09/08/24 History mcg (50,000 unit) capsule fludrocortisone 0.1 mg tablet 0.05 mg PO QODAY STEROID 12/19/17 09/15/24 History REPLACEMENT fluoxetine 20 mg capsule (Prozac) 20 mg PO QDAY 12/19/17 09/14/24 History levothyroxine 88 mcg tablet 88 mcg PO DAILY 12/19/17 09/15/24 History (Synthroid) pediatric multivitamin no.76 1 tab PO QDAY 12/19/17 09/08/24 History (Gummy Dinos chewable tablet) prednisone 2 mg tablet,delayed 4 mg PO QHS 12/19/17 09/14/24 History release triamterene 37.5 1 cap PO QAM 12/19/17 09/14/24 History mg-hydrochlorothiazide 25 mg capsule (Dyazide) aspirin 81 mg tablet,delayed 81 mg PO .COMPLEX 08/25/24 09/08/24 History release (Adult Aspirin Regimen) denosumab 60 mg/mL subcutaneous 60 mg subcut [id number] 08/25/24 05/12/24 History syringe (Prolia) omeprazole 40 mg capsule,delayed 40 mg PO DAILY 09/15/24 Unknown History release aspirin 81 mg tablet,delayed 81 mg PO BID 14 days #28 tabs 09/16/24 Unknown Rx release mecobalamin (vitamin B12) 1,000 1,000 mcg sublingual .2 times week 12/02/24 Unknown History mcg disintegrating tablet,sublingual potassium chloride 20 mEq meq PO 12/02/24 Unknown History tablet,extended release(part/cryst) sennosides 8.6 mg-docusate sodium 2 tab PO BID PRN 12/02/24 Unknown History 50 mg tablet (Stimulant Laxative Plus) Allergy/AdvReac Type Severity Reaction Status Date / Time adhesive tape Allergy Severe NEEDS Verified 12/06/24 21:43 FOLLOW-UP Seasonal Allergies: Uncoded Allergy Severe NEEDS Verified 12/06/24 21:43 FOLLOW-UP Family History Mother Cancer cervical Father Cancer Brother Cancer Surgical History (Reviewed 12/02/24 @ 10:13 by Clarisa Toribio PAD MACHINE OFFBEARER, PAD MACHINE OFFBEARER-C) Status post replacement of left shoulder joint Hx of carpal tunnel repair History of reverse total replacement of right shoulder joint Hx of toe surgery History of cataract surgery History of total left hip arthroplasty History of total left knee replacement (TKR) History of total right hip replacement History of gastric bypass History of abdominoplasty left 3rd toe amputation History of breast mammoplasty left second toe amputation hammer toe surgery History of bunionectomy of both great toes Hx of total adrenalectomy H/O discectomy Social History Smoking Status: Former smoker Tobacco: How many years used: 10 Electronic Cigarette Use: not used how long ago did patient quit smokin, 0.5p/day second hand exposure: Yes alcohol intake: current substance use type: does not use EXAM Physical Exam Const Vital Signs: 12/06/24 21:30 12/06/24 21:32 Temperature 97.7 F L 97 F L Temperature Source Oral Oral Pulse Rate 87 Respiratory Rate 17 Pulse Ox 99 Oxygen Delivery Method Room Air MDM MDM MDM Narrative Medical decision making narrative: HISTORY OF PRESENT ILLNESS: 64-year-old female presents with concern for TIA versus CVA. History is provided by the patient and EMS. Per EMS they were called secondary to patient having initially abdominal pain and then having left-sided weakness and numbness. Last known well was 8:45 PM. There is report of short-term memory loss. REVIEW OF SYSTEMS: Pertinent positives: [] Pertinent negatives: [] PHYSICAL EXAM: Nursing triage notes reviewed, Vital signs reviewed Constitutional: please see mdm HENT: MMM Eyes: Pupils equal round and reactive to light, Extraocular muscles intact Neck: No stridor, no JVD, full neck ROM Lungs: Clear to auscultation, No wheezing or rales. No increased work of breathing, no conversational dyspnea, no accessory muscle use, no nasal flaring. No respiratory distress noted Heart: Regular rate and rhythm, No murmurs, No rubs and No gallops, 2+ distal pulses (radial, femoral, posterior tibial) in all extremities Abdomen: Soft, there is no tenderness, rigidity, rebound or guarding, no obvious peritoneal signs, no palpable pulsatile abdominal masses, no auscultated abdominal bruit : No CVAT Extremities: No edema Neuro: Alert and oriented x3, neuro exam at baseline, cranial nerves II through XII are intact. No pain with extraocular muscle movement. There is negative test of skew. 5 of 5 strength in upper and lower extremities in flexion extension. Intact sensation to light touch in upper and lower extremity dermatomes. No truncal or extremity ataxia. No dysdiadochokinesia. Normal gait. 2+ reflexes in upper and lower extremities. No meningeal signs. Negative Babinski. NIH of 0. Skin: No rash or lesions noted MEDICAL DECISION MAKING: Chief Complaint: AMS, abdominal pain, left sided weakness External records reviewed: Factors affecting care: TIA, history of gastric bypass, TAD, Social determinants of health: none History obtained from others: none Consults: Internal Medicine (Dr. Gonzalez) [facility] Narrative: The patient was initially hemodynamically stable, afebrile and nontoxic- appearing. Patient's initial neurologic exam was intact. Her NIH was 0. I considered the following differential diagnosis: CVA, TIA, ICH, focal seizure, toxic, metabolic encephalopathy ALL IMAGES (IF OBTAINED) HAVE BEEN PERSONALLY REVIEWED AND INTERPRETED BY MYSELF. EKG with normal sinus rhythm rate 84, left axis deviation, normal intervals, QTc 458, no STEMI, no signs of A-fib The patient and/or family, caregivers express understanding. The patient and/or family, caregivers agrees with the plan. Shared decision making: I will have a discussion with the patient and or visitors regarding risk/benefits of further testing or admission. They will be made aware of of the risk/benefits inherent in this decision they will be given the opportunity to voice understanding. Total critical care time today provided was at least 0 [] minutes. This excludes separately billable procedures. Critical care time (if documented) is secondary to the patient having high probability of clinically significant/life threatening deterioration in the patient's condition which required my urgent intervention. Impression: [] Dispo: [] This note was generated with [employer] dictation software. It may contain incorrect words, spelling, and punctuation that were not noted in review of the chart prior to signing. Discharge Plan Triage Chief Complaint: Stroke Alert ED Provider: Mario Wellington Dx/Rx/DC Orders Prescriptions: No Action fluoxetine [Prozac] 20 mg capsule 20 mg PO QDAY triamterene-hydrochlorothiazid [Dyazide] 37.5-25 mg capsule 1 cap PO QAM prednisone 2 mg tablet,delayed release (DR/EC) 4 mg PO QHS Patient Comments: take 2 tabs levothyroxine [Synthroid] 88 mcg tablet 88 mcg PO DAILY biotin 5,000 mcg tablet,disintegrating 10,000 mcg PO QDAY fludrocortisone 0.1 mg tablet 0.05 mg PO QODAY ergocalciferol (vitamin D2) 50,000 unit capsule 50,000 unit PO QWEEK calcitriol 0.25 mcg capsule 0.25 mcg PO QDAY pediatric multivitamin no.76 [Gummy Dinos] tablet,chewable 1 tab PO QDAY calcium carbonate 500 mg calcium (1,250 mg) tablet 500 mg PO BID mecobalamin (vitamin B12) 1,000 mcg tablet,disintegrating 1,000 mcg SUBLINGUAL .2 times week potassium chloride 20 mEq tablet,ER particles/crystals PO sennosides-docusate sodium [Stimulant Laxative Plus] 8.6-50 mg tablet 2 tab PO BID PRN aspirin [Adult Aspirin Regimen] 81 mg tablet,delayed release (DR/EC) 81 mg PO .COMPLEX Rx Instructions: one tablet by mouth twice per week Prolia 60 mg/mL syringe 60 mg subcut [id number] omeprazole 40 mg capsule,delayed release(DR/EC) 40 mg PO DAILY aspirin 81 mg Tablet,Delayed Release (Dr/Ec) 81 mg PO BID 14 Days Qty: 28 0RF Primary Care Provider: Kelli Senior Referrals: Kelli Senior DO [Primary Care Provider] - Print Language: Khmer
[2024-12-06 21:58] LABS: Absolute Lymphocyte Count 1.92 X10^3/uL (0.83-4.51); Absolute Neutrophil Count 3.4 X10^3/uL (2.0-7.7); Basophil# 0.03 X10^3/uL; Basophil% 0.5 % (0-1); Eosinophil# 0.16 X10^3/uL; Eosinophils% 2.7 % (0-5); Hematocrit 36.2 % (37-47); Hemoglobin 12.7 g/dL (12.0-15.0); Lymphocyte # 1.92 X10^3/ul (0.83-4.51); Mean Corp Hgb Conc 35.1 g/dL (32-36); Mean Corpuscular Hgb 30.9 pg (27.0-32.0); Mean Corpuscular Volume 88.1 fL (81-99); Mean Platelet Vol. 9.5 fl (6.2-12.0); Monocyte# 0.51 X10^3/uL; Monocyte% 8.5 % (0-10); NRBC Flagged by Analyzer 0 % (0-5); Neutrophil # 3.37 X10^3/uL (2.7-7.7); Neutrophil % 56.1 % (47-70); Platelet Count 180 K/mm3 (150-450); RBC Distribution Width SD 42.5 fl (35.1-43.9); Red Blood Count 4.11 M/mm3 (4.2-5.4)
--- NOTE | 2024-12-06 21:59 | ED.RN ---
Patient has no short term memory. Patient cannot recall any events from today or identify what day of the week it is. Patient does not recall waking up this morning and is repeating self. Dr. Wellington notified.
--- NOTE | 2024-12-06 22:00 | RAD_ITS ---
INDICATION: TIA, AMS EXAMINATION/TECHNIQUE: X-RAY - XR Chest 1 View COMPARISON: 10/30/2022. FINDINGS: The lungs are clear. Tortuous and calcified thoracic aorta. The heart is not enlarged. No pleural effusion or pneumothorax. Degenerative changes of the thoracic spine and shoulders. RAD/Chest 1 View (Portable) IMPRESSION: No acute radiographic abnormalities. Electronically Signed: Vel Triana MD at 23:57 EST ,
[2024-12-06 22:08] LABS: Partial Thromboplast Time 27.3 Seconds (24.1-36.2)
[2024-12-06 22:12] LABS: Prothrombin Time (Protime)PT. 13.6 SECONDS (11.7-14.9)
[2024-12-06 22:18] LABS: AST(SGOT) 37 U/L (15-37); Alanine Aminotransfer ALT/SGPT 36 U/L (13-56); Alkaline Phosphatase 48 U/L (45-117); Anion Gap 7 (5-15); BUN 13 mg/dL (7-18); Bilirubin, Direct 0.15 mg/dL (0.00-0.30); Calcium,Total 8.7 mg/dL (8.5-10.1); Chloride 103 mmol/L (98-107); Creatinine, Serum 0.65 mg/dL (0.55-1.02); EST Glomerular Filtration Rate 97 mL/min (>60); Est Glom Filt Rate - Afr Amer 117 mL/min (>60); Estimated Creatinine Clearance 64.19 ml/min; Globulin 2.8 g/dL (2.2-4.2); Glucose 108 mg/dL (74-106); Lipase 44 U/L (13-75); Potassium 3.4 mmol/L (3.5-5.1); Protein, Total 5.8 g/dL (6.4-8.2); Sodium Level 136 mmol/L (136-145)
[2024-12-06 22:46] LABS: Alcohol, Blood (Medical)-Serum < 3.0 mg/dL
[2024-12-06] MEDS: Ondansetron 4 MG/2 ML Vial IV (23:18)
[2024-12-06] MEDS: Morphine 4 MG/ML Syringe IV (23:19)
[2024-12-06 23:36] LABS: Amphetamine Urine NEGATIVE (<1000 ng/mL); Barbiturate Urine VISTA NEGATIVE (< 200 ng/mL); Benzodiazepine Urine VISTA NEGATIVE (< 200 ng/mL); Cocaine Urine VISTA NEGATIVE (< 300 ng/mL); Ecstacy Urine VISTA NEGATIVE (< 500 ng/mL); Methadone Urine VISTA NEGATIVE (< 300 ng/mL); PCP Urine VISTA NEGATIVE (< 25 ng/mL); THC Urine VISTA NEGATIVE (< 50 ng/mL); Vista UDS pH Range 7
--- NOTE | 2024-12-06 23:57 | ED.RN ---
RADIOLOGY CALLED AGAIN FOR PROLONGED IMAGE READ TIMES. RESPONSE WE HAVE REACHED OUT TO HAVE IT ASSIGNED TO A RADIOLOGIST MULTIPLE TIMES.
[2024-12-07] VITALS: BP 142/127; PULSE 73; RESP 17; O2SAT 98
--- NOTE | 2024-12-07 00:06 | HP.PCM.HOS_ITS ---
HPI - General General Date of Admission: 12/07/24 Date of Service: 12/07/24 Chief Complaint: Chest pain, N/V, dyspnea, cough HPI Narrative The patient is a 73 y/o F w/ PMHx: CAD s.p CABG x 5, HTN, HLD, PAF, Chronic anemia, GERD who presents to the [facility] ED on 12/07/24 with midsternal chest pressure with no radiation worse with exertion with associated dyspnea although she does report also recent nonproductive cough however did have mild nausea as well as a handful of nonbilious episodes of emesis and given persisted with cardiac history prompted eventual ED evaluation to be cautious. Workup in the ED included T98.2, heart 71, BP 122/52, respiratory rate 19, 94% on room air with most recent repeat vitals heart rate 62, BP 104/53, respiratory rate 18, 97% on room air, CBC with WC 6.1, hemoglobin 0.3, MCV 100.8, platelet 169 without marked shift, CMP with chloride 109, BUN/creatinine 20/1.28, GFR 43, glucose 144, alk phos 252 otherwise hepatic profile not marked appearing, initial troponin 6 with repeat delta 8, CT abdomen pelvis with increasing postcholecystectomy biliary dilatation otherwise no acute findings, chest x-ray with no acute cardiopulmonary findings, rapid SARS COVID/influenza/RSV PCR negative, EKG with sinus rhythm with nonspecific changes with no acute evidence of ischemia. In the ED patient is for Zofran 4 mg IV x 1 as well as morphine 4 mg IV x 1. #1. Persistent chest discomfort with nausea, emesis, cough and dyspnea, concerning for possible ACS however some suspicion also for possible initial presentation of viral syndrome: EKG in ED sinus rhythm with nonspecific changes with no acute evidence of ischemia, CXR w/ no acute cardiopulmonary findings, initial trop 6 with repeat 8. Will admit to PCU, place on a monitored bed to assure no acute myocardial infarction with serial cardiac enzymes and EKGs. Magnesium level requested. FLP in AM. If repeat serial cardiac enzymes and EKGs remain unremarkable and if still remains appropriate would pursue cardiac stress testing Sunday. Will obtain full respiratory viral panel. If any onset of diarrhea low threshold to obtain enteric pathogen. Until clinically improving will maintain on clears with IV PPI. #2. Acute kidney injury: Likely secondary to GI losses with nausea and emesis and suspect poor intake, admission BUN/Cr [], prior baseline creatinine noted to be primarily 0.5-0.7 but has vacillated and most recently 08/02/2024 creatinine 0.56. Will judiciously hydrate, hold nephrotoxic medications and repeat chemistry in AM. If no improvement would plan FeNa assessment. #3. Hyperglycemia, mild: Admission glucose 144, possibly stress response, if remains elevated will consider hemoglobin A1c. #4. CAD: Status post CABG, will continue aspirin, statin, labetalol. Holding losartan given RODRIGUE as noted, add back once appropriate. #5. PAF: We will continue patient home labetalol regimen, not on chronic anticoagulation per current list but clarifying. #6. Hypertension: Continue home regimen including labetalol with hold parameters as needed especially given lower BP upon ED arrival, PRN hydralazine. Holding valsartan and diuretic given RODRIGUE, add back once appropriate. #7. Hyperlipidemia: Continue home statin therapy, FLP in AM. #8. Chronic back pain: We will continue patient on gabapentin regimen, encourage offloading, fall precautions. #9. DVT prophylaxis: Lovenox. #10. CODE status: Patient HCPOA is [] and living will is []. Discussed CODE status at length including difference between FULL code, DNR-CCA and DNR-CC status. Following discussions about the differences in these status, requested []. Advanced Care Planning Face to Face Time: [] minutes. [facility] Medical History (Reviewed 12/02/24 @ 10:13 by Clarisa Toribio HAND DEICER ELEMENT WINDER, HAND DEICER ELEMENT WINDER-C) Cardiology follow-up encounter History of echocardiogram Hypothyroidism Familial hypercholesteremia Lamine syndrome TIA (transient ischemic attack) Wears partial dentures Wears glasses MRSA infection Alcohol use History of steroid therapy Thyroid disease Ambulates with cane Arthritis Back pain History of hiatal hernia Gastric reflux Former smoker CPAP (continuous positive airway pressure) dependence Sleep apnea History of edema History of stress test Hypertension Post-menopausal Central hypothyroidism Paronychia Depressive disorder Iliotibial band tendonitis 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 Macrocytosis Scoliosis/kyphoscoliosis Glucocorticoid deficiency Obesity Osteoarthritis Depression TAD (obstructive sleep apnea) Home Medications ?Medication ?Instructions ?Recorded ?Last Taken ?Type biotin 5,000 mcg disintegrating 10,000 mcg PO QDAY 12/19/17 09/07/24 History tablet calcitriol 0.25 mcg capsule 0.25 mcg PO QDAY OSTEOPOROSIS 12/19/17 09/08/24 History calcium carbonate 500 mg PO BID 12/19/17 09/08/24 History ergocalciferol (vitamin D2) 1,250 50,000 unit PO QWEEK 12/19/17 09/08/24 History mcg (50,000 unit) capsule fludrocortisone 0.1 mg tablet 0.05 mg PO QODAY STEROID 12/19/17 09/15/24 History REPLACEMENT fluoxetine 20 mg capsule (Prozac) 20 mg PO QDAY 12/19/17 09/14/24 History levothyroxine 88 mcg tablet 88 mcg PO DAILY 12/19/17 09/15/24 History (Synthroid) triamterene 37.5 1 cap PO QAM 12/19/17 09/14/24 History mg-hydrochlorothiazide 25 mg capsule (Dyazide) aspirin 81 mg tablet,delayed 81 mg PO .COMPLEX 08/25/24 09/08/24 History release (Adult Aspirin Regimen) denosumab 60 mg/mL subcutaneous 60 mg subcut [id number] 08/25/24 05/12/24 History syringe (Prolia) omeprazole 40 mg capsule,delayed 40 mg PO DAILY 09/15/24 Unknown History release aspirin 81 mg tablet,delayed 81 mg PO BID 14 days #28 tabs 09/16/24 Unknown Rx release mecobalamin (vitamin B12) 1,000 1,000 mcg sublingual .2 times week 12/02/24 Unknown History mcg disintegrating tablet,sublingual potassium chloride 20 mEq 20 meq PO DAILY 12/02/24 Unknown History tablet,extended release(part/cryst) sennosides 8.6 mg-docusate sodium 2 tab PO BID PRN constipation 12/02/24 Unknown History 50 mg tablet (Stimulant Laxative Plus) meloxicam 7.5 mg tablet 7.5 mg PO BID 12/07/24 Unknown History prednisone 1 mg tablet 1 mg PO DAILY 12/07/24 Unknown History Allergy/AdvReac Type Severity Reaction Status Date / Time adhesive tape Allergy Severe NEEDS Verified 12/06/24 21:43 FOLLOW-UP Seasonal Allergies: Uncoded Allergy Severe NEEDS Verified 12/06/24 21:43 FOLLOW-UP Family History Mother Cancer cervical Father Cancer Brother Cancer Surgical History (Reviewed 12/02/24 @ 10:13 by Clarisa Toribio HAND DEICER ELEMENT WINDER, HAND DEICER ELEMENT WINDER-C) Status post replacement of left shoulder joint Hx of carpal tunnel repair History of reverse total replacement of right shoulder joint Hx of toe surgery History of cataract surgery History of total left hip arthroplasty History of total left knee replacement (TKR) History of total right hip replacement History of gastric bypass History of abdominoplasty left 3rd toe amputation History of breast mammoplasty left second toe amputation hammer toe surgery History of bunionectomy of both great toes Hx of total adrenalectomy H/O discectomy Social History Smoking Status: Former smoker Tobacco: How many years used: 10 Electronic Cigarette Use: not used how long ago did patient quit smokin, 0.5p/day second hand exposure: Yes alcohol intake: current substance use type: does not use Vital Signs Vital Signs Vital Signs: 12/06/24 21:30 12/06/24 21:32 12/06/24 22:00 Temperature 97.7 F L 97 F L Temperature Source Oral Oral Pulse Rate 87 81 Respiratory Rate 17 15 Blood Pressure 131/98 H Blood Pressure Mean 109 Pulse Ox 99 98 Oxygen Delivery Method Room Air Room Air 12/06/24 22:30 12/06/24 23:00 12/06/24 23:30 Temperature Temperature Source Pulse Rate 77 79 73 Respiratory Rate 13 16 22 H Blood Pressure 125/80 H 137/97 H 117/69 Blood Pressure Mean 95 110 85 Pulse Ox 99 98 98 Oxygen Delivery Method Room Air Room Air Room Air 12/07/24 00:00 Temperature Temperature Source Pulse Rate 73 Respiratory Rate 17 Blood Pressure 142/127 H Blood Pressure Mean 132 Pulse Ox 98 Oxygen Delivery Method Room Air Weight Weight: 158 lb 4.67 oz Body Mass Index (BMI) 28.9 Results Lab / Micro Data 12/06/24 21:50 12/06/24 21:50 Labs: Laboratory Results - last 24 hr 12/06/24 21:50: WBC 6.0, RBC 4.11 L, Hgb 12.7, Hct 36.2 L, MCV 88.1, MCH 30.9, MCHC 35.1, RDW Std Deviation 42.5, RDW Coeff of Alex 13.0, Plt Count 180, MPV 9.5, Immature Gran % (Auto) 0.200, Neut % (Auto) 56.1, Lymph % (Auto) 32.0, [place] % (Auto) 8.5, Eos % (Auto) 2.7, Baso % (Auto) 0.5, Absolute Neuts (auto) 3.4, Absolute Lymphs (auto) 1.92, Nucleated RBC % 0, PT 13.6, INR 1.0, APTT 27.3, Sodium 136, Potassium 3.4 L, Chloride 103, Carbon Dioxide 26.0, Anion Gap 7, BUN 13, Creatinine 0.65, Estim Creat Clear Calc 64.19, Est GFR (MDRD) Af Amer 117, Est GFR (MDRD) Non-Af 97, BUN/Creatinine Ratio 20.0, Glucose 108 H, Calcium 8.7, Total Bilirubin 0.50, Direct Bilirubin 0.15, AST 37, ALT 36, Alkaline Phosphatase 48, Total Protein 5.8 L, Albumin 3.0 L, Globulin 2.8, Lipase 44 12/06/24 22:20: Ethyl Alcohol < 3.0 12/06/24 23:05: Urine Opiates Screen NEGATIVE, Urine Methadone Screen NEGATIVE, Ur Barbiturates Screen NEGATIVE, Ur Phencyclidine Scrn NEGATIVE, Ur Amphetamines Screen NEGATIVE, MDMA (Ecstasy) Screen NEGATIVE, U Benzodiazepines Scrn NEGATIVE, Urine Cocaine Screen NEGATIVE, U Cannabinoids Screen NEGATIVE, Ur Drug Screen Comment Imaging Radiology Impression Chest X-Ray 12/06/24 22:00 IMPRESSION: No acute radiographic abnormalities. Electronically Signed: Vel Triana MD at 23:57 EST , Assessment & Plan Assessment/Plan (1) Chest pain: PLAN: Plan The patient is a 73 y/o F w/ PMHx: CAD s.p CABG x 5, HTN, HLD, PAF, Chronic anemia, GERD who presents to the [facility] ED on 12/07/24 with midsternal chest pressure with no radiation worse with exertion with associated dyspnea although she does report also recent nonproductive cough however did have mild nausea as well as a handful of nonbilious episodes of emesis and given persisted with cardiac history prompted eventual ED evaluation to be cautious. #1. Persistent chest discomfort with nausea, emesis, cough and dyspnea, concerning for possible ACS however some suspicion also for possible initial presentation of viral syndrome: EKG in ED sinus rhythm with nonspecific changes with no acute evidence of ischemia, CXR w/ no acute cardiopulmonary findings, initial trop 6 with repeat 8. Will admit to PCU, place on a monitored bed to assure no acute myocardial infarction with serial cardiac enzymes and EKGs. Magnesium level requested. FLP in AM. If repeat serial cardiac enzymes and EKGs remain unremarkable and if still remains appropriate would pursue cardiac stress testing Sunday. Will obtain full respiratory viral panel. If any onset of diarrhea low threshold to obtain enteric pathogen. Until clinically improving will maintain on clears with IV PPI. #2. Acute kidney injury: Likely secondary to GI losses with nausea and emesis and suspect poor intake, admission BUN/Cr [], prior baseline creatinine noted to be primarily 0.5-0.7 but has vacillated and most recently 08/02/2024 creatinine 0.56. Will judiciously hydrate, hold nephrotoxic medications and repeat chemistry in AM. If no improvement would plan FeNa assessment. #3. Hyperglycemia, mild: Admission glucose 144, possibly stress response, if remains elevated will consider hemoglobin A1c. #4. CAD: Status post CABG, will continue aspirin, statin, labetalol. Holding losartan given RODRIGUE as noted, add back once appropriate. #5. PAF: We will continue patient home labetalol regimen, not on chronic anticoagulation per current list but clarifying. #6. Hypertension: Continue home regimen including labetalol with hold parameters as needed especially given lower BP upon ED arrival, PRN hydralazine. Holding valsartan and diuretic given RODRIGUE, add back once appropriate. #7. Hyperlipidemia: Continue home statin therapy, FLP in AM. #8. Chronic back pain: We will continue patient on gabapentin regimen, encourage offloading, fall precautions. #9. DVT prophylaxis: Lovenox. #10. CODE status: Patient HCPOA is [] and living will is []. Discussed CODE status at length including difference between FULL code, DNR-CCA and DNR-CC status. Following discussions about the differences in these status, requested []. Advanced Care Planning Face to Face Time: [] minutes.
[2024-12-07] MEDS: Morphine 2 MG/ML Syringe IV (00:20)
[2024-12-07] MEDS: Ketorolac 15 MG/ML Vial IV (00:20)
[2024-12-07 00:30] VITALS: BP 151/97; PULSE 81; RESP 16; O2SAT 98
[2024-12-07 01:00] VITALS: BP 117/85; PULSE 81; RESP 16; O2SAT 98
[2024-12-07] MEDS: HYDROmorphone 0.5 MG/0.5 ML SYRINGE IV (01:12)
[2024-12-07 01:30] VITALS: BP 110/96; PULSE 71; RESP 16; TEMP 36.4; O2SAT 97
[2024-12-07] MEDS: Piperacil/Tazobactam 4.5 GM in 0.9% Normal Saline (100mL MB+) 100 ML IV (01:34)
[2024-12-07 02:00] VITALS: BP 109/67; PULSE 69; RESP 16; TEMP 36.4; O2SAT 97
--- NOTE | 2024-12-07 02:28 | ED.RN ---
PT ACCEPTED TO THE [facility] ED TO ED, NTN# [phone]. CALLED PHYSICIANS, SPOKE TO CHENTE. NORA 90 MIN (0400).
[2024-12-07 02:30] VITALS: BP 108/70; PULSE 66; RESP 16; O2SAT 98
--- NOTE | 2024-12-07 02:51 | ED.RN ---
REPORT CALLED TO [facility] NURSE, NO FURTHER QUESTIONS AT THIS TIME.
[2024-12-07 05:37] LABS: Reflex Lactate? Y
== END 2024-12-07 03:31 | disposition short-term general hospital (02) ==
PROVIDERS: Emergency Provider Emergency Medicine; PCP Internal Medicine; Visit Provider Emergency Medicine
DX: K56.2 Volvulus (principal); R10.9 Unspecified abdominal pain; R41.82 Altered mental status, unspecified; Z87.891 Personal history of nicotine dependence; E78.01 Familial hypercholesterolemia; I10 Essential (primary) hypertension; R53.1 Weakness; Z98.84 Bariatric surgery status; Z86.73 Personal history of transient ischemic attack (TIA), and cerebral infarction without residual deficits; E03.9 Hypothyroidism, unspecified; G47.33 Obstructive sleep apnea (adult) (pediatric); Z99.89 Dependence on other enabling machines and devices; Z79.82 Long term (current) use of aspirin; Z79.899 Other long term (current) drug therapy
CPT/HCPCS: 70496; 70498; 71045; 74176; 80048; 80076; 80307; 82077; 83605; 83690; 85025; 85610; 85730; 93005; 96361; 96374; 96375; 96376; 99285; Q9967; A4216; J2405

== ENCOUNTER → 2025-03-13 | Outpatient (CLI) | payer MEDICARE, SELFPAY | END | disposition home or self-care (01) | LOC: SL 20:29 | PROVIDERS: PCP Internal Medicine; Referring Provider Nurse Practitioner Family; Visit Provider Nurse Practitioner Family | DX: G47.33 Obstructive sleep apnea (adult) (pediatric) (principal) | CPT/HCPCS: 95811 ==

== ENCOUNTER → 2025-03-14 | Outpatient (CLI) | payer MEDICARE, SELFPAY ==
[2025-03-14 08:06] LABS: Absolute Lymphocyte Count 1.99 X10^3/uL (0.83-4.51); Absolute Neutrophil Count 1.8 X10^3/uL (2.0-7.7); Basophil# 0.04 X10^3/uL; Basophil% 0.9 % (0-1); Eosinophil# 0.14 X10^3/uL; Eosinophils% 3.2 % (0-5); Hematocrit 40.4 % (37-47); Lymphocyte # 1.99 X10^3/ul (0.83-4.51); Lymphocyte % 45.7 % (19-41); Mean Corp Hgb Conc 34.7 g/dL (32-36); Mean Corpuscular Hgb 31.4 pg (27.0-32.0); Mean Corpuscular Volume 90.6 fL (81-99); Mean Platelet Vol. 9.3 fl (6.2-12.0); Monocyte# 0.35 X10^3/uL; NRBC Flagged by Analyzer 0 % (0-5); Neutrophil # 1.82 X10^3/uL (2.7-7.7); Platelet Count 214 K/mm3 (150-450); RBC Distribution Width CV 13.2 % (11.6-14.6); RBC Distribution Width SD 43.1 fl (35.1-43.9); Red Blood Count 4.46 M/mm3 (4.2-5.4); White Blood Count 4.4 K/mm3 (4.4-11.0)
[2025-03-14 08:52] LABS: ALB/GLOB Ratio 1.8 RATIO (0.9-2.4); AST(SGOT) 40 U/L (<=31); Alanine Aminotransfer ALT/SGPT 38 U/L (<=34); Albumin, Serum 4.1 g/dL (3.4-4.8); Alkaline Phosphatase 51 U/L (35-104); Anion Gap 9 (5-15); BUN 9 mg/dL (4-19); BUN/Creat Ratio 17.2 RATIO (10-20); Calcium,Total 9.4 mg/dL (7.6-11.0); Carbon Dioxide 27.1 mmol/L (21.0-32.0); Chloride 102 mmol/L (98-108); Creatinine, Serum 0.55 mg/dL (0.70-1.20); EST Glomerular Filtration Rate 101 (>60); Globulin 2.3 g/dL (2.2-4.2); Glucose 91 mg/dL (70-99); Protein, Total 6.4 g/dL (5.9-8.4); Sodium Level 138 mmol/L (133-145); Total Bilirubin 0.48 mg/dL (0.00-1.30); Vitamin D,25 Hydroxy 46.1 ng/mL (30-100)
[2025-03-14 12:12] LABS: Cholesterol 164 mg/dL (<=200); High Density Lipoprotein 80 mg/dL; Low Density Lipoprotein Calc. 72 mg/dL; Triglycerides 61 mg/dL; Very Low Density Lipoprotein 12 mg/dL (5-40); cholesterol:hdl ratio screen 2.06
[2025-03-14 12:33] LABS: Hemoglobin A1c 5.3 % (<=5.6)
== END | disposition home or self-care (01) ==
LOC: LAB 06:39
PROVIDERS: PCP Internal Medicine; Referring Provider Internal Medicine; Visit Provider Internal Medicine
DX: I10 Essential (primary) hypertension (principal); E78.00 Pure hypercholesterolemia, unspecified; E16.2 Hypoglycemia, unspecified; E55.9 Vitamin D deficiency, unspecified
CPT/HCPCS: 36415; 80053; 80061; 82306; 83036; 84443; 85025

== ENCOUNTER → 2025-03-23 | Outpatient (CLI) | payer MEDICARE, SELFPAY ==
--- NOTE | 2025-03-23 12:57 | BI_ITS ---
EXAM: SCRN MAMM (CAD)W/ELI BILAT DATE: 03/23/2025 CLINICAL HISTORY: F, Age 64 y/o , POST MENOPAUSAL BREAST CANCER RISK ASSESSMENT: Has not been calculated. TECHNIQUE: Bilateral screening digital breast tomosynthesis with 2D and 3D images. Computer aided detection. COMPARISON: Prior exam(s) dated 03/20/2024, 03/07/2023, and 03/06/2022. FINDINGS: TISSUE DENSITY: The breast tissue is composed of scattered area of fibroglandular density. Bilateral Breast Mammographic Findings: No suspicious masses, suspicious clustered microcalcifications, architectural distortion or secondary signs of malignancy is identified in either breast. Benign-appearing macrocalcifications and round microcalcifications are seen in both breasts. BI/SCRN MAMM (CAD)W/ELI BILAT IMPRESSION: OVERALL FINAL ASSESSMENT: BIRADS 2 BENIGN FINDING RECOMMENDATION: Routine annual follow-up in 1 Year A letter with findings and recommendations will be mailed to the patient. Reading Location: [id number]
== END | disposition home or self-care (01) ==
LOC: OPBI 12:56
PROVIDERS: PCP Internal Medicine; Referring Provider Internal Medicine; Visit Provider Internal Medicine
DX: Z12.31 Encounter for screening mammogram for malignant neoplasm of breast (principal)
CPT/HCPCS: 77063; 77067

== ENCOUNTER → 2025-07-01 | Outpatient (CLI) | payer MEDICARE, SELFPAY ==
[2025-07-01 17:22] LABS: Hematocrit 39.8 % (37-47); Hemoglobin 13.8 g/dL (12.0-15.0); Immature Granulocytes Count 0.020 X10^3/uL (0.0-0.0); Mean Corp Hgb Conc 34.7 g/dL (32-36); Mean Corpuscular Volume 90.5 fL (81-99); Mean Platelet Vol. 10.0 fl (6.2-12.0); NRBC Flagged by Analyzer 0 % (0-5); Platelet Count 234 K/mm3 (150-450); RBC Distribution Width CV 12.9 % (11.6-14.6); RBC Distribution Width SD 42.1 fl (35.1-43.9); Red Blood Count 4.40 M/mm3 (4.2-5.4); White Blood Count 5.4 K/mm3 (4.4-11.0)
[2025-07-01 17:33] LABS: AST(SGOT) 38 U/L (<=31); Alanine Aminotransfer ALT/SGPT 32 U/L (<=34); Albumin, Serum 3.9 g/dL (3.4-4.8); Alkaline Phosphatase 54 U/L (35-104); Anion Gap 15 (5-15); BUN 11 mg/dL (4-19); BUN/Creat Ratio 21.5 RATIO (10-20); Calcium,Total 9.5 mg/dL (7.6-11.0); Carbon Dioxide 21.8 mmol/L (21.0-32.0); Chloride 98 mmol/L (98-108); Globulin 2.6 g/dL (2.2-4.2); Glucose 130 mg/dL (70-99); Potassium 3.6 mmol/L (3.3-5.1)
== END | disposition home or self-care (01) ==
LOC: LAB 14:11
PROVIDERS: PCP Internal Medicine; Referring Provider Internal Medicine; Visit Provider Internal Medicine
DX: R10.13 Epigastric pain (principal)
CPT/HCPCS: 36415; 80053; 85025; 85652